=== PATIENT | female | born 1935 | race African-American/Black ===

== ENCOUNTER 2017-04-05 18:09 | Inpatient (IN) ==
[2017-04-05 19:04] LABS: Basophils % 0.8 % (0.0-0.8); Eosinophils # 0.2 10*3/uL (0.0-0.87); Eosinophils % 4.7 % (0.00-10.9); Hematocrit 23.2 VOL% (35.7-47.0); Hemoglobin 7.6 GM/DL (12.0-16.0); Immature Granulocytes % 0.5 %; Immature Granulocytes Absolute 0.02 #; Lymphocytes # 1.4 10*3/uL (1.4-4.0); Lymphocytes % 35.5 % (21.3-54.2); Mean Corpuscular HGB Conc 32.8 GM/DL (32-36); Mean Corpuscular Hemoglobin 29 PG (27-34); Mean Corpuscular Volume 87.5 FL (87-102); Monocytes # 0.5 10*3/uL (0.11-0.8); Monocytes % 12.1 % (1.7-12.7); Neutrophils # 1.8 10*3/uL (1.4-7.4); Neutrophils % 46.4 % (38.7-73.9); Platelet Count 82 T/CUMM (130-400); Red Blood Count 2.65 MC/CUMM (3.8-5.5); White Blood Count 3.8 T/CUMM (4-12)
[2017-04-05 19:29] LABS: Albumin 3.4 G/DL (3.4-5.0); Bilirubin,Total 0.7 MG/DL (0.2-1.0); Calcium 8.8 MG/DL (8.5-10.1); Total Protein 6.7 G/DL (6.4-8.3)
[2017-04-05 19:30] LABS: Osmolality,Calculated 286.4 MOS/KG (273-304); Potassium 4.6 MMOL/L (3.5-5.1)
[2017-04-05 19:59] LABS: Band Neutrophils 4 % (0-10); Eosinophils 4 % (0-10); Lymphocytes 30 % (20-55); Metamyelocytes 1 %; Myelocytes 3 %; Segmented Neutrophils 57 % (50-85); Total Cells Counted 100
[2017-04-05 20:00] LABS: Acanthocytes Moderate; Anisocytosis 1+; Hypochromasia 1+
[2017-04-05 20:02] LABS: Platelet Estimate Decreased; Tear Drop Cells Few
[2017-04-05 20:42] LABS: Apearance,Urine CLEAR (Clear); Bacteria,Urine Occasional /HPF (Few); Bilirubin,Urine Negative (Negative); Blood, Urine Negative (Negative); Glucose,Urine (UA) Negative (Negative); Hyaline Casts,Urine 4 /LPF (0-3); Ketones,Urine Negative (Negative); Mucus,Urine Occasional /LPF (Occasional); Nitrite,Urine Negative (Negative); Protein,Urine Negative; RBC,Urine <1 /HPF (0-4); Squamous Epithelial Cell,Urine Occasional /HPF (0-10); Urine Color Straw (Yellow); Urine Specific Gravity 1.004 (1.001-1.035); Urine Urobilinogen < 2.0 EU/DL (0.2-1.0); WBC,Urine <1 /HPF (0-6)
[2017-04-05] MEDS ORDERED: ONDANSETRON 4 MG/2 ML VIAL IV PRN (21:49)
[2017-04-05] MEDS ORDERED: SODIUM CHLORIDE 0.9% 1,000 ML IV PRN (21:49)
[2017-04-05 22:25] LABS: Basophils % 0.5 % (0.0-0.8); Eosinophils # 0.2 10*3/uL (0.0-0.87); Eosinophils % 5.3 % (0.00-10.9); Hematocrit 22.7 VOL% (35.7-47.0); Hemoglobin 7.5 GM/DL (12.0-16.0); Immature Granulocytes % 0.2 %; Immature Granulocytes Absolute 0.01 #; Lymphocytes # 1.6 10*3/uL (1.4-4.0); Lymphocytes % 35.7 % (21.3-54.2); Mean Corpuscular Hemoglobin 29 PG (27-34); Mean Corpuscular Volume 87.3 FL (87-102); Monocytes # 0.4 10*3/uL (0.11-0.8); Monocytes % 10.1 % (1.7-12.7); Neutrophils # 2.1 10*3/uL (1.4-7.4); Neutrophils % 48.2 % (38.7-73.9); White Blood Count 4.3 T/CUMM (4-12)
[2017-04-05 22:29] LABS: INR 1.1; PT Patient Result 11.7 SECS; Partial Thromboplastin Time 27.7 SECS (0-40)
[2017-04-05 22:38] LABS: Platelet Count 94 T/CUMM (130-400)
[2017-04-05 22:53] LABS: Folate 12.4 NG/ML (5.4-24.0); Vitamin B12 454 PG/ML (211-911)
[2017-04-05 23:41] LABS: Sedimentation Rate-Westergren 38 MM/HR (0-30)
[2017-04-05 23:46] LABS: Anisocytosis 1+; Microcytosis 1+; Platelet Estimate Decreased
[2017-04-05 23:47] LABS: Acanthocytes 1+; Giant Platelets Few; Hypochromasia Slight; Ovalocytes Few; Schistocytes Few
[2017-04-06] MEDS: LISINOPRIL 10 MG TABLET PO SCH ×2 (02:18→08:18)
[2017-04-06] MEDS ORDERED: LEVOTHYROXINE 50 MCG TABLET PO SCH (07:00)
[2017-04-06] MEDS ORDERED: CARVEDILOL 25 MG TABLET PO SCH (08:00)
[2017-04-06] MEDS ORDERED: POLYETHYLENE GLYCOL POWDER 17 GM PACK PO SCH (09:00)
[2017-04-06] MEDS ORDERED: PANTOPRAZOLE 40 MG TABLET PO SCH (09:00)
[2017-04-06] MEDS ORDERED: FUROSEMIDE 40 MG TABLET PO SCH (09:00)
[2017-04-06] MEDS ORDERED: POTASSIUM CHLORIDE 10 MEQ TABLET PO SCH (09:00)
[2017-04-06] MEDS ORDERED: ATORVASTATIN 80 MG TABLET PO SCH (09:00)
[2017-04-06 09:58] LABS: Eosinophils % 4.4 % (0.00-10.9); Immature Granulocytes % 0.2 %; Immature Granulocytes Absolute 0.01 #; Red Cell Distribution Width 15.8 % (9.3-17.3)
[2017-04-06] MEDS ORDERED: FERROUS SULFATE 325 MG TABLET PO SCH (10:00)
[2017-04-06 10:05] LABS: Basophils % 0.6 % (0.0-0.8); Eosinophils # 0.2 10*3/uL (0.0-0.87); Hematocrit 28.6 VOL% (35.7-47.0); Lymphocytes # 1.1 10*3/uL (1.4-4.0); Lymphocytes % 23.5 % (21.3-54.2); Mean Corpuscular HGB Conc 34.3 GM/DL (32-36); Mean Corpuscular Hemoglobin 29 PG (27-34); Mean Corpuscular Volume 85.1 FL (87-102); Monocytes # 0.5 10*3/uL (0.11-0.8); Monocytes % 10.5 % (1.7-12.7); Neutrophils # 2.9 10*3/uL (1.4-7.4); Neutrophils % 60.8 % (38.7-73.9); Platelet Count 84 T/CUMM (130-400); White Blood Count 4.8 T/CUMM (4-12)
[2017-04-06 10:07] LABS: Red Blood Count 3.36 MC/CUMM (3.8-5.5)
[2017-04-06 10:08] LABS: Hemoglobin 9.8 GM/DL (12.0-16.0)
[2017-04-06 10:26] LABS: Bilirubin,Total 1.3 MG/DL (0.2-1.0); Calcium 8.7 MG/DL (8.5-10.1); Magnesium 2.2 MG/DL (1.8-2.4); Osmolality,Calculated 291.1 MOS/KG (273-304); Phosphorous 3.3 MG/DL (2.5-4.9); Potassium 4.1 MMOL/L (3.5-5.1); Total Protein 5.5 G/DL (6.4-8.3)
[2017-04-06 10:33] LABS: Hypochromasia 1+
[2017-04-06 10:34] LABS: Acanthocytes 1+; Microcytosis 1+; Ovalocytes Few
[2017-04-06 10:35] LABS: Platelet Estimate Decreased; Poikilocytosis 1+; Schistocytes Few
[2017-04-06 12:51] VITALS: BP 128/61
[2017-04-06] MEDS: SODIUM CHLORIDE 0.45% 1,000 ML IV SCH ×2 (13:08)
[2017-04-08 09:23] LABS: Hemoglobin A1 (Alkaline) 97.6 % (96.5-98.5); Hemoglobin A2 (Alkaline) 2.4 % (1.5-3.5)
== END 2017-04-06 14:24 | disposition home or self-care (01) | DRG 812 ==
LOC: N.ED 18:09 → N.EDINP 20:45 → N.3E 21:05
PROVIDERS: ADMIT Internal Medicine; ATTEND Internal Medicine

== ENCOUNTER 2017-07-05 10:24 | Inpatient (IN) ==
[2017-07-05] MEDS ORDERED: PANTOPRAZOLE 40 MG VIAL IV STA (10:43)
[2017-07-05] MEDS ORDERED: PANTOPRAZOLE 40 MG VIAL IV ONE (10:54)
[2017-07-05 11:32] LABS: Basophils # 0.1 10*3/uL (0.0-0.2); Basophils % 0.8 % (0.0-0.8); Eosinophils # 0.2 10*3/uL (0.0-0.87); Eosinophils % 3.3 % (0.00-10.9); Hematocrit 31.2 VOL% (35.7-47.0); Hemoglobin 10.3 GM/DL (12.0-16.0); Immature Granulocytes % 0.5 %; Immature Granulocytes Absolute 0.03 #; Lymphocytes # 1.1 10*3/uL (1.4-4.0); Lymphocytes % 18.9 % (21.3-54.2); Mean Corpuscular Hemoglobin 29 PG (27-34); Mean Corpuscular Volume 86.2 FL (87-102); Mean Platelet Volume 15.2 FL (9.6-12.0); Monocytes # 0.6 10*3/uL (0.11-0.8); Neutrophils % 66.5 % (38.7-73.9); Platelet Count 68 T/CUMM (130-400); Red Blood Count 3.62 MC/CUMM (3.8-5.5); Red Cell Distribution Width 13.7 % (9.3-17.3)
[2017-07-05 11:39] LABS: INR 1.1; PT Patient Result 11.6 SECS; Partial Thromboplastin Time 25.7 SECS (0-40)
[2017-07-05 11:49] LABS: Acanthocytes Few; Hypochromasia 1+
[2017-07-05 11:50] LABS: Microcytosis Slight; Ovalocytes Slight; Platelet Estimate Decreased
[2017-07-05 11:51] LABS: Alanine Aminotransferase 11 U/L (13-56); Albumin 3.3 G/DL (3.4-5.0); Alkaline Phosphatase 123 U/L (45-117); Aspartate Amino Transferase 11 U/L (0-37); Blood Urea Nitrogen 41 MG/DL (7-18); Calcium 9.4 MG/DL (8.5-10.1); Glucose 90 MG/DL (74-106); Osmolality,Calculated 290.3 MOS/KG (273-304); Potassium 4.1 MMOL/L (3.5-5.1); Sodium 141 MMOL/L (136-145); Total Protein 7.2 G/DL (6.4-8.3); Troponin I Only < 0.015 NG/ML (0.00-0.045)
[2017-07-05 17:41] LABS: Apearance,Urine CLEAR (Clear); Bilirubin,Urine Negative (Negative); Blood, Urine Negative (Negative); Glucose,Urine (UA) Negative (Negative); Ketones,Urine Negative (Negative); Nitrite,Urine Negative (Negative); Protein,Urine Negative; RBC,Urine <1 /HPF (0-4); Squamous Epithelial Cell,Urine Occasional /HPF (0-10); Urine Color Straw (Yellow); Urine Specific Gravity 1.009 (1.001-1.035); Urine Urobilinogen < 2.0 EU/DL (0.2-1.0); WBC,Urine <1 /HPF (0-6)
[2017-07-05] MEDS: SODIUM CHLORIDE 0.9% 1,000 ML IV SCH (17:57)
[2017-07-06 04:28] LABS: Basophils % 0.4 % (0.0-0.8); Eosinophils # 0.2 10*3/uL (0.0-0.87); Hematocrit 24.9 VOL% (35.7-47.0); Hemoglobin 8.4 GM/DL (12.0-16.0); Immature Granulocytes % 0.4 %; Immature Granulocytes Absolute 0.02 #; Lymphocytes # 1.5 10*3/uL (1.4-4.0); Lymphocytes % 29.5 % (21.3-54.2); Mean Corpuscular HGB Conc 33.7 GM/DL (32-36); Mean Corpuscular Hemoglobin 28 PG (27-34); Mean Corpuscular Volume 84.1 FL (87-102); Mean Platelet Volume 14.5 FL (9.6-12.0); Monocytes # 0.5 10*3/uL (0.11-0.8); Neutrophils # 2.8 10*3/uL (1.4-7.4); Neutrophils % 55.7 % (38.7-73.9); Platelet Count 82 T/CUMM (130-400); Red Blood Count 2.96 MC/CUMM (3.8-5.5); Red Cell Distribution Width 13.7 % (9.3-17.3)
[2017-07-06 04:39] LABS: INR 1.2; PT Patient Result 12.4 SECS
[2017-07-06 04:47] LABS: Calcium 8.5 MG/DL (8.5-10.1); Osmolality,Calculated 295.6 MOS/KG (273-304); Potassium 3.9 MMOL/L (3.5-5.1)
[2017-07-06 05:11] LABS: Eosinophils 3 % (0-10); Lymphocytes 27 % (20-55); Segmented Neutrophils 64 % (50-85); Total Cells Counted 100
[2017-07-06 05:12] LABS: Burr Cells Slight; Giant Platelets Few; Hypochromasia 1+; Microcytosis Slight; Ovalocytes Slight; Platelet Estimate Decreased
[2017-07-06] MEDS: SODIUM CHLORIDE 0.9% 1,000 ML IV SCH ×2 (06:06→16:47)
[2017-07-06] MEDS: PANTOPRAZOLE 40 MG VIAL IV SCH (09:32)
[2017-07-07 06:30] LABS: INR 1.1
[2017-07-07 06:31] LABS: Basophils % 0.6 % (0.0-0.8); Eosinophils # 0.2 10*3/uL (0.0-0.87); Eosinophils % 4.1 % (0.00-10.9); Hematocrit 25.3 VOL% (35.7-47.0); Hemoglobin 8.3 GM/DL (12.0-16.0); Immature Granulocytes % 0.4 %; Immature Granulocytes Absolute 0.02 #; Lymphocytes # 1.3 10*3/uL (1.4-4.0); Lymphocytes % 25.8 % (21.3-54.2); Mean Corpuscular HGB Conc 32.8 GM/DL (32-36); Mean Corpuscular Hemoglobin 28 PG (27-34); Mean Corpuscular Volume 86.1 FL (87-102); Mean Platelet Volume 14.6 FL (9.6-12.0); Monocytes # 0.6 10*3/uL (0.11-0.8); Monocytes % 11.8 % (1.7-12.7); Neutrophils # 2.8 10*3/uL (1.4-7.4); Neutrophils % 57.3 % (38.7-73.9); Platelet Count 86 T/CUMM (130-400); Red Blood Count 2.94 MC/CUMM (3.8-5.5); Red Cell Distribution Width 13.5 % (9.3-17.3); White Blood Count 4.8 T/CUMM (4-12)
[2017-07-07 07:12] LABS: % Iron Saturation 24.5 % (18-50); Ferritin 122.5 ng/ml (8-252)
[2017-07-07 08:02] LABS: Burr Cells Slight; Hypochromasia 1+; Ovalocytes Slight; Platelet Estimate Decreased
[2017-07-07 08:03] LABS: Giant Platelets Few; Microcytosis Slight
[2017-07-07] MEDS: PANTOPRAZOLE 40 MG VIAL IV SCH (09:10)
[2017-07-07 09:35] LABS: Sedimentation Rate-Westergren 45 MM/HR (0-30)
[2017-07-07] MEDS: SODIUM CHLORIDE 0.9% 1,000 ML IV SCH ×2 (10:10→10:11)
[2017-07-07 11:37] LABS: Folate 11.4 NG/ML (5.4-24.0); Vitamin B12 216 PG/ML (211-911)
[2017-07-07] MEDS: CARVEDILOL 25 MG TABLET PO SCH (17:56)
[2017-07-07] MEDS: LISINOPRIL 10 MG TABLET PO SCH (20:50)
[2017-07-07] MEDS: FERROUS SULFATE 325 MG TABLET PO SCH (20:50)
[2017-07-08] MEDS: LEVOTHYROXINE 50 MCG TABLET PO SCH ×2 (06:43→16:27)
[2017-07-08 06:51] LABS: INR 1.1
[2017-07-08 07:15] LABS: Basophils % 0.8 % (0.0-0.8); Eosinophils # 0.2 10*3/uL (0.0-0.87); Eosinophils % 4.3 % (0.00-10.9); Hematocrit 26.6 VOL% (35.7-47.0); Hemoglobin 8.7 GM/DL (12.0-16.0); Immature Granulocytes % 0.4 %; Immature Granulocytes Absolute 0.02 #; Lymphocytes # 1.5 10*3/uL (1.4-4.0); Lymphocytes % 30.8 % (21.3-54.2); Mean Corpuscular HGB Conc 32.7 GM/DL (32-36); Mean Corpuscular Hemoglobin 28 PG (27-34); Mean Corpuscular Volume 85.3 FL (87-102); Mean Platelet Volume 13.9 FL (9.6-12.0); Monocytes # 0.5 10*3/uL (0.11-0.8); Monocytes % 10.6 % (1.7-12.7); Neutrophils # 2.6 10*3/uL (1.4-7.4); Neutrophils % 53.1 % (38.7-73.9); Platelet Count 101 T/CUMM (130-400); Red Blood Count 3.12 MC/CUMM (3.8-5.5); Red Cell Distribution Width 13.4 % (9.3-17.3); White Blood Count 4.9 T/CUMM (4-12)
[2017-07-08 07:23] LABS: Calcium 8.6 MG/DL (8.5-10.1); Osmolality,Calculated 287.7 MOS/KG (273-304); Potassium 3.8 MMOL/L (3.5-5.1)
[2017-07-08] MEDS: PANTOPRAZOLE 40 MG VIAL IV SCH (08:51)
[2017-07-08] MEDS: CARVEDILOL 25 MG TABLET PO SCH ×2 (08:55→16:27)
[2017-07-08] MEDS ORDERED: LIDOCAINE 2% 5 ML VIAL ONE (11:18)
[2017-07-08] MEDS ORDERED: PROPOFOL 200 MG/20 ML VIAL IV ONE (11:18)
[2017-07-08] MEDS ORDERED: BISACODYL 5 MG TABLET PO ONE (12:00)
[2017-07-08] MEDS: FERROUS SULFATE 325 MG TABLET PO SCH ×2 (12:47→20:52)
[2017-07-08] MEDS: LISINOPRIL 10 MG TABLET PO SCH ×2 (12:55→20:52)
[2017-07-08 13:10] LABS: Hemoglobin A1 (Alkaline) 97.7 % (96.5-98.5); Hemoglobin A2 (Alkaline) 2.3 % (1.5-3.5)
[2017-07-08] MEDS ORDERED: POLYETHYLENE GLYCOL POWDER 255 GM BOTTLE PO ONE ×2 (14:00→18:00)
[2017-07-09] MEDS: LISINOPRIL 10 MG TABLET PO SCH ×2 (08:31→20:55)
[2017-07-09] MEDS: LEVOTHYROXINE 50 MCG TABLET PO SCH (08:31)
[2017-07-09] MEDS: FERROUS SULFATE 325 MG TABLET PO SCH ×2 (08:31→20:59)
[2017-07-09] MEDS: CARVEDILOL 25 MG TABLET PO SCH ×3 (08:31→16:57)
[2017-07-09] MEDS: PANTOPRAZOLE 40 MG VIAL IV SCH (08:31)
[2017-07-09] MEDS ORDERED: ONDANSETRON 4 MG/2 ML VIAL ONE (10:23)
[2017-07-09] MEDS ORDERED: PROPOFOL 200 MG/20 ML VIAL IV ONE (10:23)
[2017-07-09] MEDS ORDERED: PHENYLEPHRINE 1 MG/10 ML SYRINGE IV ONE (10:23)
[2017-07-09] MEDS ORDERED: LIDOCAINE 2% 5 ML VIAL ONE (10:23)
[2017-07-09] MEDS ORDERED: ONDANSETRON 4 MG/2 ML VIAL IV PRN (14:51)
[2017-07-09] MEDS ORDERED: ACETAMINOPHEN 325 MG TABLET PO PRN (16:45)
[2017-07-10] MEDS: LEVOTHYROXINE 50 MCG TABLET PO SCH (06:13)
[2017-07-10] MEDS: CARVEDILOL 25 MG TABLET PO SCH (08:38)
[2017-07-10] MEDS: PANTOPRAZOLE 40 MG VIAL IV SCH (08:38)
[2017-07-10] MEDS: FERROUS SULFATE 325 MG TABLET PO SCH (08:38)
[2017-07-10] MEDS: LISINOPRIL 10 MG TABLET PO SCH (08:38)
[2017-07-10 11:22] VITALS: BP 112/56
== END 2017-07-10 13:20 | disposition home or self-care (01) | DRG 378 ==
LOC: N.ED 10:24 → SUATTDRO 11:57 → N.EDINP 11:57 → N.5E 14:42
PROVIDERS: ADMIT Hospitalist; ATTEND Internal Medicine Cardiovascular Disease

== ENCOUNTER 2018-02-03 16:34 | Inpatient (IN) ==
[2018-02-03] MEDS ORDERED: SODIUM CHLORIDE 0.9% 1,000 ML IV STA (17:28)
[2018-02-03] MEDS ORDERED: ONDANSETRON 4 MG/2 ML VIAL IV PRN (18:14)
[2018-02-04 00:05] LABS: Basophils % 0.2 % (0.0-0.8); Eosinophils # 0.1 10*3/uL (0.0-0.87); Eosinophils % 0.6 % (0.00-10.9); Hematocrit 30.1 VOL% (35.7-47.0); Hemoglobin 9.8 GM/DL (12.0-16.0); Immature Granulocytes % 2.2 %; Immature Granulocytes Absolute 0.27 #; Lymphocytes # 1.1 10*3/uL (1.4-4.0); Lymphocytes % 9.2 % (21.3-54.2); Mean Corpuscular HGB Conc 32.6 GM/DL (32-36); Mean Corpuscular Hemoglobin 29 PG (27-34); Mean Corpuscular Volume 88.8 FL (87-102); Mean Platelet Volume 12.3 FL (9.6-12.0); Monocytes # 0.7 10*3/uL (0.11-0.8); Monocytes % 5.7 % (1.7-12.7); Neutrophils # 9.9 10*3/uL (1.4-7.4); Neutrophils % 82.1 % (38.7-73.9); Platelet Count 123 T/CUMM (130-400); Red Blood Count 3.39 MC/CUMM (3.8-5.5); Red Cell Distribution Width 16.7 % (9.3-17.3); White Blood Count 12.1 T/CUMM (4-12)
[2018-02-04 00:30] LABS: Albumin 2.5 G/DL (3.4-5.0); Bilirubin,Total 0.7 MG/DL (0.2-1.0); Calcium 9.5 MG/DL (8.5-10.1); Osmolality,Calculated 302.4 MOS/KG (273-304); Total Protein 6.6 G/DL (6.4-8.3)
[2018-02-04] MEDS: SODIUM CHLORIDE 0.9% 1,000 ML IV SCH ×2 (00:32→13:13)
[2018-02-04] MEDS: FERROUS SULFATE 325 MG TABLET PO SCH ×3 (00:32→20:51)
[2018-02-04] MEDS: LEVOTHYROXINE 50 MCG TABLET PO SCH (05:56)
[2018-02-04 06:13] LABS: Basophils % 0.4 % (0.0-0.8); Eosinophils # 0.1 10*3/uL (0.0-0.87); Eosinophils % 0.7 % (0.00-10.9); Hematocrit 25.2 VOL% (35.7-47.0); Hemoglobin 8.2 GM/DL (12.0-16.0); Immature Granulocytes Absolute 0.17 #; Lymphocytes # 0.9 10*3/uL (1.4-4.0); Lymphocytes % 10.4 % (21.3-54.2); Mean Corpuscular HGB Conc 32.5 GM/DL (32-36); Mean Corpuscular Hemoglobin 28 PG (27-34); Mean Corpuscular Volume 87.2 FL (87-102); Mean Platelet Volume 12.3 FL (9.6-12.0); Monocytes # 0.6 10*3/uL (0.11-0.8); Monocytes % 7.2 % (1.7-12.7); Neutrophils # 6.7 10*3/uL (1.4-7.4); Neutrophils % 79.3 % (38.7-73.9); Platelet Count 99 T/CUMM (130-400); Red Blood Count 2.89 MC/CUMM (3.8-5.5); Red Cell Distribution Width 16.4 % (9.3-17.3); White Blood Count 8.5 T/CUMM (4-12)
[2018-02-04 06:31] LABS: Albumin 2.1 G/DL (3.4-5.0); Bilirubin,Total 0.7 MG/DL (0.2-1.0); Osmolality,Calculated 305.3 MOS/KG (273-304); Potassium 3.9 MMOL/L (3.5-5.1); Total Protein 5.5 G/DL (6.4-8.3)
[2018-02-04 06:35] LABS: Acanthocytes Few
[2018-02-04 06:36] LABS: Elliptocytes Few; Hypochromasia 1+; Microcytosis 1+
[2018-02-04 06:37] LABS: Platelet Estimate Decreased
[2018-02-04] MEDS ORDERED: CARVEDILOL 25 MG TABLET PO SCH (08:00)
[2018-02-04] MEDS: metroNIDAZOLE INJ 500 MG in PREMIX 1 EACH IV SCH ×3 (08:28→20:51)
[2018-02-04] MEDS: PANTOPRAZOLE 40 MG TABLET PO SCH (08:28)
[2018-02-04] MEDS: CIPROFLOXACIN INJ 400 MG in PREMIX 1 EACH IV SCH (16:37)
[2018-02-04] MEDS: ATORVASTATIN 80 MG TABLET PO SCH (20:51)
[2018-02-05] MEDS: SODIUM CHLORIDE 0.9% 1,000 ML IV SCH (02:18)
[2018-02-05] MEDS: metroNIDAZOLE INJ 500 MG in PREMIX 1 EACH IV SCH ×2 (02:20→09:20)
[2018-02-05] MEDS: LEVOTHYROXINE 50 MCG TABLET PO SCH (06:22)
[2018-02-05 06:48] LABS: Basophils % 0.3 % (0.0-0.8); Eosinophils # 0.1 10*3/uL (0.0-0.87); Eosinophils % 0.8 % (0.00-10.9); Hematocrit 24.9 VOL% (35.7-47.0); Hemoglobin 8.3 GM/DL (12.0-16.0); Immature Granulocytes % 2.3 %; Immature Granulocytes Absolute 0.21 #; Lymphocytes % 11.1 % (21.3-54.2); Mean Corpuscular HGB Conc 33.3 GM/DL (32-36); Mean Corpuscular Hemoglobin 29 PG (27-34); Mean Corpuscular Volume 86.2 FL (87-102); Mean Platelet Volume 12.3 FL (9.6-12.0); Monocytes # 0.9 10*3/uL (0.11-0.8); Monocytes % 9.8 % (1.7-12.7); Neutrophils # 6.8 10*3/uL (1.4-7.4); Neutrophils % 75.7 % (38.7-73.9); Platelet Count 111 T/CUMM (130-400); Red Blood Count 2.89 MC/CUMM (3.8-5.5); Red Cell Distribution Width 16.6 % (9.3-17.3)
[2018-02-05 07:25] LABS: Albumin 1.9 G/DL (3.4-5.0); Bilirubin,Total 0.7 MG/DL (0.2-1.0); Calcium 8.7 MG/DL (8.5-10.1); Osmolality,Calculated 300.8 MOS/KG (273-304); Potassium 3.6 MMOL/L (3.5-5.1); Total Protein 5.1 G/DL (6.4-8.3)
[2018-02-05 07:29] LABS: % Iron Saturation 18.3 % (18-50)
[2018-02-05] MEDS ORDERED: POLYETHYLENE GLYCOL POWDER 17 GM PACK PO PRN (08:43)
[2018-02-05] MEDS: FERROUS SULFATE 325 MG TABLET PO SCH ×2 (09:20→20:49)
[2018-02-05] MEDS: PANTOPRAZOLE 40 MG TABLET PO SCH (09:20)
[2018-02-05] MEDS ORDERED: IRON SUCROSE 200 MG in SODIUM CHLORIDE 0.9% 100 ML IV ONE (09:59)
[2018-02-05] MEDS ORDERED: MAGNESIUM SULF RIDER 2 GM in PREMIX 1 EACH IV PRN (10:34)
[2018-02-05] MEDS ORDERED: MAGNESIUM SULF RIDER 4 GM in PREMIX 1 EACH IV PRN (10:34)
[2018-02-05] MEDS: CIPROFLOXACIN INJ 400 MG in PREMIX 1 EACH IV SCH (10:37)
[2018-02-05] MEDS ORDERED: POTASSIUM PHOSPHATE 30 MMOL in SODIUM CHLORIDE 0.9% 250 ML IV ONE (10:44)
[2018-02-05] MEDS: DICLOFENAC 1% GEL 100 GM TUBE TOP SCH ×2 (16:47→20:49)
[2018-02-05] MEDS: ATORVASTATIN 80 MG TABLET PO SCH (20:49)
[2018-02-06] MEDS: SODIUM CHLORIDE 0.9% 1,000 ML IV SCH ×3 (02:21→17:58)
[2018-02-06 05:40] LABS: Basophils % 0.2 % (0.0-0.8); Eosinophils # 0.1 10*3/uL (0.0-0.87); Eosinophils % 0.7 % (0.00-10.9); Hematocrit 24.8 VOL% (35.7-47.0); Immature Granulocytes % 2.9 %; Immature Granulocytes Absolute 0.26 #; Lymphocytes # 0.8 10*3/uL (1.4-4.0); Lymphocytes % 8.6 % (21.3-54.2); Mean Corpuscular HGB Conc 32.3 GM/DL (32-36); Mean Corpuscular Hemoglobin 29 PG (27-34); Mean Corpuscular Volume 88.3 FL (87-102); Mean Platelet Volume 10.6 FL (9.6-12.0); Monocytes # 0.9 10*3/uL (0.11-0.8); Monocytes % 9.3 % (1.7-12.7); Neutrophils # 7.1 10*3/uL (1.4-7.4); Neutrophils % 78.3 % (38.7-73.9); Platelet Count 106 T/CUMM (130-400); Red Blood Count 2.81 MC/CUMM (3.8-5.5); Red Cell Distribution Width 16.8 % (9.3-17.3); White Blood Count 9.1 T/CUMM (4-12)
[2018-02-06 06:09] LABS: Albumin 1.9 G/DL (3.4-5.0); Bilirubin,Total 1.2 MG/DL (0.2-1.0); Calcium 8.4 MG/DL (8.5-10.1); Osmolality,Calculated 296.6 MOS/KG (273-304); Potassium 4.1 MMOL/L (3.5-5.1); Total Protein 5.3 G/DL (6.4-8.3)
[2018-02-06] MEDS: LEVOTHYROXINE 50 MCG TABLET PO SCH (06:33)
[2018-02-06] MEDS ORDERED: CEFUROXIME 500 MG TABLET PO SCH (09:00)
[2018-02-06] MEDS: DICLOFENAC 1% GEL 100 GM TUBE TOP SCH ×4 (09:08→22:02)
[2018-02-06] MEDS: FERROUS SULFATE 325 MG TABLET PO SCH ×2 (09:08→22:02)
[2018-02-06] MEDS: PANTOPRAZOLE 40 MG TABLET PO SCH (09:08)
[2018-02-06] MEDS ORDERED: CIPROFLOXACIN INJ 400 MG in PREMIX 1 EACH IV SCH (10:00)
[2018-02-06] MEDS: AMPICILLIN/SULBACTAM 3,000 MG in SODIUM CHLORIDE 0.9% 100 ML IV SCH ×2 (14:24→21:58)
[2018-02-06] MEDS ORDERED: MECLIZINE 25 MG TABLET PO PRN (15:39)
[2018-02-06] MEDS: FLUTICASONE 50 MCG NASAL SPRAY 16 GM BOTTLE BOTH NARES SCH (22:02)
[2018-02-06] MEDS: ATORVASTATIN 80 MG TABLET PO SCH (22:02)
[2018-02-07] MEDS: AMPICILLIN/SULBACTAM 3,000 MG in SODIUM CHLORIDE 0.9% 100 ML IV SCH ×4 (03:04→20:58)
[2018-02-07 06:23] LABS: Basophils % 0.2 % (0.0-0.8); Eosinophils # 0.1 10*3/uL (0.0-0.87); Eosinophils % 0.8 % (0.00-10.9); Hematocrit 22.8 VOL% (35.7-47.0); Hemoglobin 7.5 GM/DL (12.0-16.0); Immature Granulocytes Absolute 0.17 #; Lymphocytes # 0.8 10*3/uL (1.4-4.0); Lymphocytes % 9.3 % (21.3-54.2); Mean Corpuscular HGB Conc 32.9 GM/DL (32-36); Mean Corpuscular Hemoglobin 29 PG (27-34); Mean Corpuscular Volume 86.7 FL (87-102); Mean Platelet Volume 12.6 FL (9.6-12.0); Monocytes # 0.7 10*3/uL (0.11-0.8); Monocytes % 8.3 % (1.7-12.7); NRBC # 0.02 10*3/uL; Neutrophils # 6.9 10*3/uL (1.4-7.4); Neutrophils % 79.4 % (38.7-73.9); Platelet Count 123 T/CUMM (130-400); Red Blood Count 2.63 MC/CUMM (3.8-5.5); Red Cell Distribution Width 16.9 % (9.3-17.3); White Blood Count 8.7 T/CUMM (4-12)
[2018-02-07] MEDS: LEVOTHYROXINE 50 MCG TABLET PO SCH (06:35)
[2018-02-07 07:07] LABS: Alanine Aminotransferase < 9 U/L (13-56); Albumin 1.7 G/DL (3.4-5.0); Alkaline Phosphatase 57 U/L (45-117); Aspartate Amino Transferase 13 U/L (0-37); Blood Urea Nitrogen 20 MG/DL (7-18); Calcium 8.1 MG/DL (8.5-10.1); Glucose 89 MG/DL (74-106); Osmolality,Calculated 291.6 MOS/KG (273-304); Potassium 3.9 MMOL/L (3.5-5.1); Sodium 146 MMOL/L (136-145); Total Protein 4.8 G/DL (6.4-8.3)
[2018-02-07] MEDS: SODIUM CHLORIDE 0.9% 1,000 ML IV SCH (10:24)
[2018-02-07] MEDS: FERROUS SULFATE 325 MG TABLET PO SCH ×2 (10:25→20:57)
[2018-02-07] MEDS: PANTOPRAZOLE 40 MG TABLET PO SCH (10:25)
[2018-02-07] MEDS: DICLOFENAC 1% GEL 100 GM TUBE TOP SCH ×4 (10:26→20:58)
[2018-02-07] MEDS: FLUTICASONE 50 MCG NASAL SPRAY 16 GM BOTTLE BOTH NARES SCH ×2 (10:26→20:57)
[2018-02-07] MEDS ORDERED: MAGNESIUM SULF RIDER 4 GM in PREMIX 1 EACH IV PRN (10:58)
[2018-02-07] MEDS ORDERED: MAGNESIUM SULF RIDER 2 GM in PREMIX 1 EACH IV PRN (10:58)
[2018-02-07] MEDS ORDERED: SODIUM CHLORIDE 0.9% 1,000 ML IV PRN (10:59)
[2018-02-07] MEDS: ALLOPURINOL 100 MG TABLET PO SCH (11:49)
[2018-02-07] MEDS ORDERED: LACTULOSE 20 GM/30 ML UDCUP PO ONE (12:26)
[2018-02-07] MEDS ORDERED: FUROSEMIDE 20 MG/2 ML VIAL IV ONE (14:00)
[2018-02-07] MEDS: ATORVASTATIN 80 MG TABLET PO SCH (20:57)
[2018-02-08 04:18] LABS: Hematocrit 32.4 VOL% (35.7-47.0); Hemoglobin 10.8 GM/DL (12.0-16.0)
[2018-02-08] MEDS: AMPICILLIN/SULBACTAM 3,000 MG in SODIUM CHLORIDE 0.9% 100 ML IV SCH ×4 (05:20→23:27)
[2018-02-08] MEDS: LEVOTHYROXINE 50 MCG TABLET PO SCH (06:31)
[2018-02-08] MEDS: PANTOPRAZOLE 40 MG TABLET PO SCH (08:11)
[2018-02-08] MEDS: FLUTICASONE 50 MCG NASAL SPRAY 16 GM BOTTLE BOTH NARES SCH ×2 (08:11→21:29)
[2018-02-08] MEDS: FERROUS SULFATE 325 MG TABLET PO SCH ×2 (08:11→21:28)
[2018-02-08] MEDS: ALLOPURINOL 100 MG TABLET PO SCH (08:11)
[2018-02-08] MEDS ORDERED: ACETAMINOPHEN 325 MG TABLET PO PRN (09:50)
[2018-02-08] MEDS: methylPREDNISolone SOD SUC 40 MG/1 ML VIAL IV SCH ×2 (10:45→23:27)
[2018-02-08] MEDS: DICLOFENAC 1% GEL 100 GM TUBE TOP SCH (14:39)
[2018-02-08] MEDS: ATORVASTATIN 80 MG TABLET PO SCH (21:28)
[2018-02-09] MEDS: AMPICILLIN/SULBACTAM 3,000 MG in SODIUM CHLORIDE 0.9% 100 ML IV SCH (05:06)
[2018-02-09] MEDS: LEVOTHYROXINE 50 MCG TABLET PO SCH (05:06)
[2018-02-09] MEDS: FLUTICASONE 50 MCG NASAL SPRAY 16 GM BOTTLE BOTH NARES SCH (08:45)
[2018-02-09] MEDS: FERROUS SULFATE 325 MG TABLET PO SCH (08:45)
[2018-02-09] MEDS: ALLOPURINOL 100 MG TABLET PO SCH (08:45)
[2018-02-09] MEDS: PANTOPRAZOLE 40 MG TABLET PO SCH (08:45)
[2018-02-09 14:17] VITALS: BP 129/65
== END 2018-02-09 13:16 | disposition home or self-care (01) | DRG 683 ==
LOC: N.ED 16:34 → SUATTDRO 22:00 → N.EDINP 22:00 → N.5E 23:09
PROVIDERS: ADMIT Internal Medicine; ATTEND Internal Medicine

== ENCOUNTER 2018-04-19 12:11 | Observation (INO) ==
[2018-04-19 13:31] LABS: Basophils # 0.1 10*3/uL (0.0-0.2); Basophils % 0.6 % (0.0-0.8); Eosinophils # 0.3 10*3/uL (0.0-0.87); Eosinophils % 3.4 % (0.00-10.9); Hematocrit 27.9 VOL% (35.7-47.0); Hemoglobin 8.9 GM/DL (12.0-16.0); Immature Granulocytes % 1.1 %; Immature Granulocytes Absolute 0.09 #; Lymphocytes # 1.4 10*3/uL (1.4-4.0); Lymphocytes % 17.8 % (21.3-54.2); Mean Corpuscular HGB Conc 31.9 GM/DL (32-36); Mean Corpuscular Hemoglobin 29 PG (27-34); Mean Platelet Volume 11.3 FL (9.6-12.0); Monocytes # 0.6 10*3/uL (0.11-0.8); Monocytes % 7.9 % (1.7-12.7); Neutrophils # 5.5 10*3/uL (1.4-7.4); Neutrophils % 69.2 % (38.7-73.9); Platelet Count 184 T/CUMM (130-400); Red Cell Distribution Width 16.2 % (9.3-17.3); White Blood Count 7.9 T/CUMM (4-12)
[2018-04-19 13:55] LABS: INR 1.1; PT Patient Result 11.7 SECS; Partial Thromboplastin Time 25.9 SECS (0-40)
[2018-04-19 13:56] LABS: Alanine Aminotransferase 14 U/L (13-56); Albumin 2.3 G/DL (3.4-5.0); Alkaline Phosphatase 112 U/L (45-117); Aspartate Amino Transferase 17 U/L (0-37); Blood Urea Nitrogen 20 MG/DL (7-18); Calcium 9.5 MG/DL (8.5-10.1); Glucose 86 MG/DL (74-106); Osmolality,Calculated 287.8 MOS/KG (273-304); Potassium 3.5 MMOL/L (3.5-5.1); Sodium 144 MMOL/L (136-145); Total Protein 6.4 G/DL (6.4-8.3)
[2018-04-19 14:04] LABS: Troponin I 0.069 NG/ML (0.00-0.045)
[2018-04-19] MEDS ORDERED: ONDANSETRON 4 MG/2 ML VIAL IV PRN (14:35)
[2018-04-19] MEDS ORDERED: ACETAMINOPHEN 325 MG TABLET PO PRN (14:35)
[2018-04-19] MEDS ORDERED: HYDROmorphone 2 MG/1 ML VIAL IV PRN (14:35)
[2018-04-19] MEDS ORDERED: FUROSEMIDE 40 MG TABLET PO SCH (16:00)
[2018-04-19] MEDS ORDERED: SODIUM CHLORIDE 0.9% 1,000 ML IV SCH (18:30)
[2018-04-19] MEDS: IRON (CARBONYL) 45 MG TABLET PO SCH ×2 (18:44→21:16)
[2018-04-19] MEDS: CARVEDILOL 25 MG TABLET PO SCH (21:16)
[2018-04-20 04:27] LABS: Basophils # 0.1 10*3/uL (0.0-0.2); Basophils % 0.7 % (0.0-0.8); Eosinophils # 0.3 10*3/uL (0.0-0.87); Hematocrit 25.3 VOL% (35.7-47.0); Hemoglobin 8.1 GM/DL (12.0-16.0); Immature Granulocytes % 1.3 %; Lymphocytes # 1.8 10*3/uL (1.4-4.0); Lymphocytes % 23.2 % (21.3-54.2); Mean Corpuscular Hemoglobin 29 PG (27-34); Mean Corpuscular Volume 91.3 FL (87-102); Mean Platelet Volume 11.6 FL (9.6-12.0); Monocytes # 0.7 10*3/uL (0.11-0.8); Monocytes % 8.6 % (1.7-12.7); Neutrophils # 4.7 10*3/uL (1.4-7.4); Neutrophils % 62.2 % (38.7-73.9); Platelet Count 174 T/CUMM (130-400); Red Blood Count 2.77 MC/CUMM (3.8-5.5); Red Cell Distribution Width 16.1 % (9.3-17.3); White Blood Count 7.6 T/CUMM (4-12)
[2018-04-20 04:58] LABS: Bilirubin,Total 0.6 MG/DL (0.2-1.0); Calcium 8.6 MG/DL (8.5-10.1); Osmolality,Calculated 293.6 MOS/KG (273-304); Potassium 3.2 MMOL/L (3.5-5.1); Total Protein 5.8 G/DL (6.4-8.3)
[2018-04-20 05:20] LABS: Troponin I 0.061 NG/ML (0.00-0.045)
[2018-04-20] MEDS ORDERED: LEVOTHYROXINE 50 MCG TABLET PO SCH (06:30)
[2018-04-20] MEDS ORDERED: PANTOPRAZOLE 40 MG TABLET PO SCH (09:00)
[2018-04-20] MEDS ORDERED: CLOPIDOGREL 75 MG TABLET PO SCH (09:00)
[2018-04-20] MEDS ORDERED: ATORVASTATIN 80 MG TABLET PO SCH (09:00)
[2018-04-20] MEDS ORDERED: ASPIRIN EC 81 MG TABLET PO SCH (09:00)
[2018-04-20] MEDS: CARVEDILOL 25 MG TABLET PO SCH (09:01)
[2018-04-20] MEDS: IRON (CARBONYL) 45 MG TABLET PO SCH (09:01)
[2018-04-20] MEDS: POTASSIUM CHLORIDE 20 MEQ TABLET PO PRN ×2 (09:56→12:16)
[2018-04-20 12:38] VITALS: BP 146/64
== END 2018-04-20 13:48 | disposition home or self-care (01) ==
LOC: EDUNIT# → N.ED 12:11 → INTOOBSV 14:34 → N.EDINP 14:34 → N.TELEN 16:11
PROVIDERS: ADMIT Internal Medicine Cardiovascular Disease; ATTEND Internal Medicine Cardiovascular Disease

== ENCOUNTER 2018-05-15 00:51 | Inpatient (IN) ==
[2018-05-15] MEDS ORDERED: SODIUM CHLORIDE 0.9% 500 ML IV STA (01:04)
[2018-05-15 01:35] LABS: Basophils # 0.1 10*3/uL (0.0-0.2); Basophils % 0.7 % (0.0-0.8); Eosinophils # 0.2 10*3/uL (0.0-0.87); Hematocrit 26.7 VOL% (35.7-47.0); Hemoglobin 8.6 GM/DL (12.0-16.0); Immature Granulocytes % 0.4 %; Immature Granulocytes Absolute 0.03 #; Lymphocytes # 1.3 10*3/uL (1.4-4.0); Lymphocytes % 19.4 % (21.3-54.2); Mean Corpuscular HGB Conc 32.2 GM/DL (32-36); Mean Corpuscular Hemoglobin 29 PG (27-34); Mean Corpuscular Volume 90.5 FL (87-102); Mean Platelet Volume 13.1 FL (9.6-12.0); Monocytes # 0.5 10*3/uL (0.11-0.8); Monocytes % 7.8 % (1.7-12.7); Neutrophils # 4.7 10*3/uL (1.4-7.4); Neutrophils % 68.7 % (38.7-73.9); Platelet Count 132 T/CUMM (130-400); Red Blood Count 2.95 MC/CUMM (3.8-5.5); Red Cell Distribution Width 16.1 % (9.3-17.3); White Blood Count 6.9 T/CUMM (4-12)
[2018-05-15 01:46] LABS: INR 1.1; PT Patient Result 11.7 SECS; Partial Thromboplastin Time 25.3 SECS (0-40)
[2018-05-15 01:59] LABS: Albumin 2.6 G/DL (3.4-5.0); Bilirubin,Total 0.6 MG/DL (0.2-1.0); Calcium 9.2 MG/DL (8.5-10.1); Potassium 3.3 MMOL/L (3.5-5.1); Total Protein 7.1 G/DL (6.4-8.3)
[2018-05-15] MEDS ORDERED: ONDANSETRON 4 MG/2 ML VIAL IV PRN (02:10)
[2018-05-15] MEDS ORDERED: ACETAMINOPHEN 325 MG TABLET PO PRN (02:10)
[2018-05-15] MEDS: SODIUM CHLORIDE 0.9% 1,000 ML IV SCH ×3 (04:40→17:45)
[2018-05-15 05:00] LABS: Basophils % 0.5 % (0.0-0.8); Eosinophils # 0.2 10*3/uL (0.0-0.87); Eosinophils % 2.7 % (0.00-10.9); Hematocrit 23.3 VOL% (35.7-47.0); Hemoglobin 7.4 GM/DL (12.0-16.0); Immature Granulocytes % 0.8 %; Immature Granulocytes Absolute 0.05 #; Lymphocytes # 1.2 10*3/uL (1.4-4.0); Lymphocytes % 18.7 % (21.3-54.2); Mean Corpuscular HGB Conc 31.8 GM/DL (32-36); Mean Corpuscular Hemoglobin 29 PG (27-34); Mean Corpuscular Volume 90.7 FL (87-102); Mean Platelet Volume 13.2 FL (9.6-12.0); Monocytes # 0.6 10*3/uL (0.11-0.8); Monocytes % 8.9 % (1.7-12.7); Neutrophils # 4.3 10*3/uL (1.4-7.4); Neutrophils % 68.4 % (38.7-73.9); Platelet Count 111 T/CUMM (130-400); Red Blood Count 2.57 MC/CUMM (3.8-5.5); Red Cell Distribution Width 15.8 % (9.3-17.3); White Blood Count 6.2 T/CUMM (4-12)
[2018-05-15] MEDS ORDERED: SODIUM CHLORIDE 0.9% 1,000 ML IV PRN (06:22)
[2018-05-15] MEDS ORDERED: PANTOPRAZOLE 40 MG TABLET PO SCH (09:00)
[2018-05-15] MEDS: POTASSIUM CHLORIDE RIDER 10 MEQ in PREMIX 1 EACH IV PRN ×4 (10:16→21:45)
[2018-05-15] MEDS ORDERED: NITROGLYCERIN SL 0.4 MG TABLET SL PRN (12:23)
[2018-05-15 13:50] LABS: Hematocrit 30.1 VOL% (35.7-47.0)
[2018-05-15 13:54] LABS: Hemoglobin 9.9 GM/DL (12.0-16.0)
[2018-05-15] MEDS: FUROSEMIDE 20 MG TABLET PO SCH (15:43)
[2018-05-15 16:49] LABS: Hemoglobin 10.2 GM/DL (12.0-16.0)
[2018-05-15] MEDS: PANTOPRAZOLE 40 MG TABLET PO SCH (21:42)
[2018-05-15] MEDS: LOSARTAN 25 MG TABLET PO SCH (21:42)
[2018-05-15] MEDS: CARVEDILOL 25 MG TABLET PO SCH (21:42)
[2018-05-15 22:12] LABS: Hemoglobin 9.6 GM/DL (12.0-16.0)
[2018-05-16] MEDS: SODIUM CHLORIDE 0.9% 1,000 ML IV SCH ×3 (02:30→17:28)
[2018-05-16 05:29] LABS: Calcium 8.2 MG/DL (8.5-10.1); Osmolality,Calculated 292.4 MOS/KG (273-304); Potassium 3.4 MMOL/L (3.5-5.1)
[2018-05-16 05:38] LABS: Basophils % 0.5 % (0.0-0.8); Eosinophils # 0.3 10*3/uL (0.0-0.87); Eosinophils % 3.2 % (0.00-10.9); Hematocrit 28.6 VOL% (35.7-47.0); Hemoglobin 9.5 GM/DL (12.0-16.0); Immature Granulocytes % 0.5 %; Immature Granulocytes Absolute 0.04 #; Lymphocytes # 1.7 10*3/uL (1.4-4.0); Lymphocytes % 21.5 % (21.3-54.2); Mean Corpuscular HGB Conc 33.2 GM/DL (32-36); Mean Corpuscular Hemoglobin 30 PG (27-34); Mean Corpuscular Volume 89.1 FL (87-102); Mean Platelet Volume 12.5 FL (9.6-12.0); Monocytes # 0.6 10*3/uL (0.11-0.8); Monocytes % 7.6 % (1.7-12.7); Neutrophils # 5.2 10*3/uL (1.4-7.4); Neutrophils % 66.7 % (38.7-73.9); Red Blood Count 3.21 MC/CUMM (3.8-5.5); Red Cell Distribution Width 15.2 % (9.3-17.3); White Blood Count 7.9 T/CUMM (4-12)
[2018-05-16 05:48] LABS: Platelet Count 86 T/CUMM (130-400)
[2018-05-16] MEDS ORDERED: POTASSIUM CHLORIDE 20 MEQ/15 ML UDCUP PO ONE (08:15)
[2018-05-16] MEDS: FERROUS SULFATE 325 MG TABLET PO SCH ×2 (08:57→21:09)
[2018-05-16] MEDS: ATORVASTATIN 80 MG TABLET PO SCH (08:57)
[2018-05-16] MEDS: LEVOTHYROXINE 50 MCG TABLET PO SCH (08:57)
[2018-05-16] MEDS: CARVEDILOL 25 MG TABLET PO SCH ×2 (08:57→21:09)
[2018-05-16] MEDS: FUROSEMIDE 20 MG TABLET PO SCH ×2 (08:57→17:12)
[2018-05-16] MEDS: LOSARTAN 25 MG TABLET PO SCH ×2 (08:57→21:09)
[2018-05-16] MEDS: ALLOPURINOL 100 MG TABLET PO SCH (08:58)
[2018-05-16] MEDS: PANTOPRAZOLE 40 MG TABLET PO SCH ×2 (08:58→21:09)
[2018-05-16] MEDS ORDERED: PHENYLEPHRINE 1 MG/10 ML SYRINGE IV ONE (09:00)
[2018-05-16] MEDS ORDERED: ONDANSETRON 4 MG/2 ML VIAL ONE (09:00)
[2018-05-16] MEDS ORDERED: ETOMIDATE 20 MG/10 ML VIAL IV ONE (09:00)
[2018-05-16] MEDS ORDERED: PROPOFOL 200 MG/20 ML VIAL IV ONE (09:00)
[2018-05-16] MEDS ORDERED: LIDOCAINE 1% 5 ML VIAL ONE (09:00)
[2018-05-16] MEDS ORDERED: GLYCOPYRROLATE 0.4 MG/2 ML VIAL ONE (09:00)
[2018-05-16] MEDS: TIMOLOL 0.5% OPH SOLN 5 ML BOTTLE BOTH EYES SCH (10:10)
[2018-05-16 15:22] LABS: Basophils % 0.5 % (0.0-0.8); Eosinophils # 0.3 10*3/uL (0.0-0.87); Eosinophils % 3.4 % (0.00-10.9); Hematocrit 24.5 VOL% (35.7-47.0); Hemoglobin 7.8 GM/DL (12.0-16.0); Immature Granulocytes % 0.5 %; Immature Granulocytes Absolute 0.04 #; Lymphocytes # 1.2 10*3/uL (1.4-4.0); Lymphocytes % 15.2 % (21.3-54.2); Mean Corpuscular HGB Conc 31.8 GM/DL (32-36); Mean Corpuscular Hemoglobin 29 PG (27-34); Mean Corpuscular Volume 91.4 FL (87-102); Mean Platelet Volume 11.2 FL (9.6-12.0); Monocytes # 0.6 10*3/uL (0.11-0.8); Monocytes % 8.2 % (1.7-12.7); Neutrophils # 5.5 10*3/uL (1.4-7.4); Neutrophils % 72.2 % (38.7-73.9); Platelet Count 69 T/CUMM (130-400); Red Blood Count 2.68 MC/CUMM (3.8-5.5); Red Cell Distribution Width 15.6 % (9.3-17.3); White Blood Count 7.6 T/CUMM (4-12)
[2018-05-16 16:01] LABS: Anisocytosis 1+; Platelet Estimate Decreased; Poikilocytosis 2+
[2018-05-16 21:44] LABS: Hematocrit 25.2 VOL% (35.7-47.0); Hemoglobin 8.2 GM/DL (12.0-16.0)
[2018-05-17 03:07] LABS: Basophils % 0.2 % (0.0-0.8); Eosinophils # 0.2 10*3/uL (0.0-0.87); Eosinophils % 1.4 % (0.00-10.9); Hematocrit 27.2 VOL% (35.7-47.0); Immature Granulocytes % 0.7 %; Immature Granulocytes Absolute 0.09 #; Lymphocytes # 1.4 10*3/uL (1.4-4.0); Lymphocytes % 10.6 % (21.3-54.2); Mean Corpuscular HGB Conc 33.1 GM/DL (32-36); Mean Corpuscular Hemoglobin 29 PG (27-34); Mean Corpuscular Volume 88.3 FL (87-102); Mean Platelet Volume 11.7 FL (9.6-12.0); Monocytes # 0.9 10*3/uL (0.11-0.8); Monocytes % 6.7 % (1.7-12.7); Neutrophils # 10.7 10*3/uL (1.4-7.4); Neutrophils % 80.4 % (38.7-73.9); Red Blood Count 3.08 MC/CUMM (3.8-5.5); Red Cell Distribution Width 15.3 % (9.3-17.3); White Blood Count 13.3 T/CUMM (4-12)
[2018-05-17 03:11] LABS: Platelet Count 69 T/CUMM (130-400)
[2018-05-17 03:21] LABS: Potassium 3.4 MMOL/L (3.5-5.1)
[2018-05-17] MEDS: SODIUM CHLORIDE 0.9% 1,000 ML IV SCH (04:08)
[2018-05-17] MEDS ORDERED: MAGNESIUM SULF RIDER 2 GM in PREMIX 1 EACH IV PRN (05:17)
[2018-05-17] MEDS ORDERED: MAGNESIUM SULF RIDER 4 GM in PREMIX 1 EACH IV PRN (05:17)
[2018-05-17] MEDS: POTASSIUM CHLORIDE 20 MEQ/15 ML UDCUP PO PRN ×3 (05:37→10:20)
[2018-05-17] MEDS: LEVOTHYROXINE 50 MCG TABLET PO SCH (06:27)
[2018-05-17] MEDS: LOSARTAN 25 MG TABLET PO SCH ×2 (10:20→21:25)
[2018-05-17] MEDS: ALLOPURINOL 100 MG TABLET PO SCH (10:20)
[2018-05-17] MEDS: ATORVASTATIN 80 MG TABLET PO SCH (10:20)
[2018-05-17] MEDS: TIMOLOL 0.5% OPH SOLN 5 ML BOTTLE BOTH EYES SCH (10:21)
[2018-05-17] MEDS: FUROSEMIDE 20 MG TABLET PO SCH ×2 (10:21→15:16)
[2018-05-17] MEDS: CARVEDILOL 25 MG TABLET PO SCH ×2 (10:21→21:25)
[2018-05-17] MEDS: PANTOPRAZOLE 40 MG TABLET PO SCH ×2 (10:21→21:25)
[2018-05-17] MEDS: FERROUS SULFATE 325 MG TABLET PO SCH ×2 (10:21→21:25)
[2018-05-17] MEDS: POTASSIUM CHLORIDE RIDER 10 MEQ in PREMIX 1 EACH IV SCH ×2 (10:28→11:41)
[2018-05-17] MEDS: MAGNESIUM SULF INJ 2 GM, POTASSIUM CHLORIDE INJ 20 MEQ in SODIUM CHLORIDE 0.9% 1,000 ML IV SCH ×2 (10:28→19:06)
[2018-05-17 15:17] LABS: Apearance,Urine CLEAR (Clear); Bacteria,Urine Occasional /HPF (Few); Bilirubin,Urine Negative (Negative); Blood, Urine Negative (Negative); Glucose,Urine (UA) Negative (Negative); Ketones,Urine Negative (Negative); Mucus,Urine Occasional /LPF (Occasional); Nitrite,Urine Negative (Negative); Protein,Urine Negative; RBC,Urine <1 /HPF (0-4); Squamous Epithelial Cell,Urine Occasional /HPF (0-10); Urine Color Straw (Yellow); Urine Specific Gravity 1.005 (1.001-1.035); Urine Urobilinogen < 2.0 EU/DL (0.2-1.0); WBC,Urine <1 /HPF (0-6)
[2018-05-18] MEDS: MAGNESIUM SULF INJ 2 GM, POTASSIUM CHLORIDE INJ 20 MEQ in SODIUM CHLORIDE 0.9% 1,000 ML IV SCH ×2 (02:53→09:42)
[2018-05-18 03:06] LABS: Basophils % 0.4 % (0.0-0.8); Eosinophils # 0.2 10*3/uL (0.0-0.87); Eosinophils % 2.3 % (0.00-10.9); Hematocrit 28.6 VOL% (35.7-47.0); Hemoglobin 9.3 GM/DL (12.0-16.0); Immature Granulocytes % 0.7 %; Immature Granulocytes Absolute 0.07 #; Lymphocytes # 1.4 10*3/uL (1.4-4.0); Lymphocytes % 13.8 % (21.3-54.2); Mean Corpuscular HGB Conc 32.5 GM/DL (32-36); Mean Corpuscular Hemoglobin 29 PG (27-34); Mean Corpuscular Volume 88.8 FL (87-102); Mean Platelet Volume 11.9 FL (9.6-12.0); Monocytes # 0.7 10*3/uL (0.11-0.8); Monocytes % 6.4 % (1.7-12.7); Neutrophils # 7.8 10*3/uL (1.4-7.4); Neutrophils % 76.4 % (38.7-73.9); Platelet Count 106 T/CUMM (130-400); Red Blood Count 3.22 MC/CUMM (3.8-5.5); Red Cell Distribution Width 15.9 % (9.3-17.3); White Blood Count 10.3 T/CUMM (4-12)
[2018-05-18 06:19] LABS: Calcium 8.1 MG/DL (8.5-10.1)
[2018-05-18 06:20] LABS: Albumin 1.8 G/DL (3.4-5.0); Bilirubin,Total 1.4 MG/DL (0.2-1.0); Total Protein 4.8 G/DL (6.4-8.3)
[2018-05-18 06:21] LABS: Osmolality,Calculated 287.8 MOS/KG (273-304); Potassium 4.7 MMOL/L (3.5-5.1); Thyroid Stimulating Hormone 7.92 uIU/ml (0.358-3.74)
[2018-05-18] MEDS: LEVOTHYROXINE 50 MCG TABLET PO SCH (06:36)
[2018-05-18] MEDS: PANTOPRAZOLE 40 MG TABLET PO SCH ×2 (08:25→21:15)
[2018-05-18] MEDS: FUROSEMIDE 20 MG TABLET PO SCH ×2 (08:25→17:36)
[2018-05-18] MEDS: ALLOPURINOL 100 MG TABLET PO SCH (08:25)
[2018-05-18] MEDS: TIMOLOL 0.5% OPH SOLN 5 ML BOTTLE BOTH EYES SCH (08:26)
[2018-05-18] MEDS: FERROUS SULFATE 325 MG TABLET PO SCH ×2 (08:26→21:15)
[2018-05-18] MEDS: LOSARTAN 25 MG TABLET PO SCH ×2 (08:26→21:15)
[2018-05-18] MEDS: ATORVASTATIN 80 MG TABLET PO SCH (08:26)
[2018-05-18] MEDS: CARVEDILOL 25 MG TABLET PO SCH ×2 (08:37→21:15)
[2018-05-18] MEDS: SODIUM CHLORIDE 0.9% 1,000 ML IV SCH (10:10)
[2018-05-19 05:52] LABS: Basophils % 0.4 % (0.0-0.8); Eosinophils # 0.2 10*3/uL (0.0-0.87); Eosinophils % 2.7 % (0.00-10.9); Hematocrit 27.8 VOL% (35.7-47.0); Immature Granulocytes % 0.5 %; Immature Granulocytes Absolute 0.04 #; Lymphocytes # 1.2 10*3/uL (1.4-4.0); Mean Corpuscular HGB Conc 32.4 GM/DL (32-36); Mean Corpuscular Hemoglobin 29 PG (27-34); Mean Corpuscular Volume 88.8 FL (87-102); Mean Platelet Volume 12.2 FL (9.6-12.0); Monocytes # 0.6 10*3/uL (0.11-0.8); Neutrophils # 5.5 10*3/uL (1.4-7.4); Neutrophils % 72.4 % (38.7-73.9); Platelet Count 120 T/CUMM (130-400); Red Blood Count 3.13 MC/CUMM (3.8-5.5); Red Cell Distribution Width 15.3 % (9.3-17.3); White Blood Count 7.5 T/CUMM (4-12)
[2018-05-19 06:05] LABS: Calcium 8.5 MG/DL (8.5-10.1); Potassium 4.1 MMOL/L (3.5-5.1)
[2018-05-19] MEDS: SODIUM CHLORIDE 0.9% 1,000 ML IV SCH (06:38)
[2018-05-19] MEDS: LEVOTHYROXINE 75 MCG TABLET PO SCH (06:38)
[2018-05-19] MEDS: ATORVASTATIN 80 MG TABLET PO SCH (08:21)
[2018-05-19] MEDS: CARVEDILOL 25 MG TABLET PO SCH ×2 (08:21→20:24)
[2018-05-19] MEDS: LOSARTAN 25 MG TABLET PO SCH ×2 (08:21→20:24)
[2018-05-19] MEDS: FUROSEMIDE 20 MG TABLET PO SCH ×2 (08:21→15:20)
[2018-05-19] MEDS: FERROUS SULFATE 325 MG TABLET PO SCH ×2 (08:21→20:24)
[2018-05-19] MEDS: PANTOPRAZOLE 40 MG TABLET PO SCH ×2 (08:21→20:24)
[2018-05-19] MEDS: TIMOLOL 0.5% OPH SOLN 5 ML BOTTLE BOTH EYES SCH (08:22)
[2018-05-19] MEDS: ALLOPURINOL 100 MG TABLET PO SCH ×2 (08:22→08:23)
[2018-05-20] MEDS: SODIUM CHLORIDE 0.9% 1,000 ML IV SCH ×2 (01:21→21:52)
[2018-05-20 05:27] LABS: Basophils % 0.4 % (0.0-0.8); Eosinophils # 0.2 10*3/uL (0.0-0.87); Eosinophils % 3.1 % (0.00-10.9); Hematocrit 26.2 VOL% (35.7-47.0); Hemoglobin 8.4 GM/DL (12.0-16.0); Immature Granulocytes % 0.7 %; Immature Granulocytes Absolute 0.05 #; Lymphocytes # 1.5 10*3/uL (1.4-4.0); Lymphocytes % 21.7 % (21.3-54.2); Mean Corpuscular HGB Conc 32.1 GM/DL (32-36); Mean Corpuscular Hemoglobin 28 PG (27-34); Mean Corpuscular Volume 88.5 FL (87-102); Mean Platelet Volume 11.2 FL (9.6-12.0); Monocytes # 0.6 10*3/uL (0.11-0.8); Monocytes % 8.7 % (1.7-12.7); Neutrophils # 4.6 10*3/uL (1.4-7.4); Neutrophils % 65.4 % (38.7-73.9); Platelet Count 122 T/CUMM (130-400); Red Blood Count 2.96 MC/CUMM (3.8-5.5); Red Cell Distribution Width 15.1 % (9.3-17.3)
[2018-05-20] MEDS: LEVOTHYROXINE 75 MCG TABLET PO SCH (06:00)
[2018-05-20 06:03] LABS: Calcium 8.2 MG/DL (8.5-10.1); Potassium 3.4 MMOL/L (3.5-5.1)
[2018-05-20] MEDS: FERROUS SULFATE 325 MG TABLET PO SCH ×2 (08:04→21:49)
[2018-05-20] MEDS: LOSARTAN 25 MG TABLET PO SCH ×2 (08:04→21:49)
[2018-05-20] MEDS: ALLOPURINOL 100 MG TABLET PO SCH (08:04)
[2018-05-20] MEDS: PANTOPRAZOLE 40 MG TABLET PO SCH ×2 (08:04→21:49)
[2018-05-20] MEDS: FUROSEMIDE 20 MG TABLET PO SCH ×2 (08:04→15:09)
[2018-05-20] MEDS: CARVEDILOL 25 MG TABLET PO SCH ×2 (08:04→21:49)
[2018-05-20] MEDS: ATORVASTATIN 80 MG TABLET PO SCH (08:04)
[2018-05-20] MEDS: TIMOLOL 0.5% OPH SOLN 5 ML BOTTLE BOTH EYES SCH (08:05)
[2018-05-20] MEDS ORDERED: ASPIRIN EC 81 MG TABLET PO SCH (09:00)
[2018-05-20] MEDS: POTASSIUM CHLORIDE 20 MEQ/15 ML UDCUP PO PRN ×2 (12:43→15:10)
[2018-05-21 05:35] LABS: Basophils % 0.3 % (0.0-0.8); Eosinophils # 0.2 10*3/uL (0.0-0.87); Eosinophils % 3.2 % (0.00-10.9); Hematocrit 26.5 VOL% (35.7-47.0); Hemoglobin 8.5 GM/DL (12.0-16.0); Immature Granulocytes % 1.1 %; Immature Granulocytes Absolute 0.07 #; Lymphocytes # 1.5 10*3/uL (1.4-4.0); Lymphocytes % 23.4 % (21.3-54.2); Mean Corpuscular HGB Conc 32.1 GM/DL (32-36); Mean Corpuscular Hemoglobin 28 PG (27-34); Mean Corpuscular Volume 88.3 FL (87-102); Mean Platelet Volume 11.6 FL (9.6-12.0); Monocytes # 0.6 10*3/uL (0.11-0.8); Monocytes % 8.9 % (1.7-12.7); Neutrophils % 63.1 % (38.7-73.9); Platelet Count 132 T/CUMM (130-400); Red Cell Distribution Width 14.7 % (9.3-17.3); White Blood Count 6.3 T/CUMM (4-12)
[2018-05-21 05:52] LABS: Calcium 8.1 MG/DL (8.5-10.1); Potassium 3.6 MMOL/L (3.5-5.1)
[2018-05-21] MEDS: LEVOTHYROXINE 75 MCG TABLET PO SCH (06:31)
[2018-05-21] MEDS: ATORVASTATIN 80 MG TABLET PO SCH (09:18)
[2018-05-21] MEDS: FUROSEMIDE 20 MG TABLET PO SCH ×2 (09:20→15:55)
[2018-05-21] MEDS: ALLOPURINOL 100 MG TABLET PO SCH (09:20)
[2018-05-21] MEDS: CARVEDILOL 25 MG TABLET PO SCH ×2 (09:20→20:25)
[2018-05-21] MEDS: LOSARTAN 25 MG TABLET PO SCH ×2 (09:20→20:25)
[2018-05-21] MEDS: PANTOPRAZOLE 40 MG TABLET PO SCH ×2 (09:20→20:25)
[2018-05-21] MEDS: FERROUS SULFATE 325 MG TABLET PO SCH ×2 (09:20→20:25)
[2018-05-21] MEDS: TIMOLOL 0.5% OPH SOLN 5 ML BOTTLE BOTH EYES SCH (09:29)
[2018-05-21] MEDS: ASPIRIN EC 81 MG TABLET PO SCH (10:02)
[2018-05-21] MEDS: SODIUM CHLORIDE 0.9% 1,000 ML IV SCH (20:25)
[2018-05-22 05:44] LABS: Osmolality,Calculated 280.3 MOS/KG (273-304); Potassium 3.3 MMOL/L (3.5-5.1)
[2018-05-22 05:46] LABS: Basophils % 0.4 % (0.0-0.8); Eosinophils # 0.2 10*3/uL (0.0-0.87); Eosinophils % 2.6 % (0.00-10.9); Hematocrit 25.9 VOL% (35.7-47.0); Hemoglobin 8.5 GM/DL (12.0-16.0); Immature Granulocytes Absolute 0.07 #; Lymphocytes # 1.3 10*3/uL (1.4-4.0); Lymphocytes % 19.1 % (21.3-54.2); Mean Corpuscular HGB Conc 32.8 GM/DL (32-36); Mean Corpuscular Hemoglobin 29 PG (27-34); Mean Corpuscular Volume 88.7 FL (87-102); Mean Platelet Volume 11.6 FL (9.6-12.0); Monocytes # 0.5 10*3/uL (0.11-0.8); Monocytes % 7.5 % (1.7-12.7); Neutrophils # 4.7 10*3/uL (1.4-7.4); Neutrophils % 69.4 % (38.7-73.9); Platelet Count 137 T/CUMM (130-400); Red Blood Count 2.92 MC/CUMM (3.8-5.5); Red Cell Distribution Width 14.8 % (9.3-17.3); White Blood Count 6.8 T/CUMM (4-12)
[2018-05-22] MEDS: LEVOTHYROXINE 75 MCG TABLET PO SCH (06:49)
[2018-05-22] MEDS ORDERED: MAGNESIUM SULF RIDER 2 GM in PREMIX 1 EACH IV PRN (07:50)
[2018-05-22] MEDS ORDERED: MAGNESIUM SULF RIDER 4 GM in PREMIX 1 EACH IV PRN (07:50)
[2018-05-22] MEDS: POTASSIUM CHLORIDE 20 MEQ/15 ML UDCUP PO PRN (08:58)
[2018-05-22] MEDS: ATORVASTATIN 80 MG TABLET PO SCH (08:59)
[2018-05-22] MEDS: FERROUS SULFATE 325 MG TABLET PO SCH ×2 (08:59→21:02)
[2018-05-22] MEDS: ALLOPURINOL 100 MG TABLET PO SCH (08:59)
[2018-05-22] MEDS: ASPIRIN EC 81 MG TABLET PO SCH (08:59)
[2018-05-22] MEDS: LOSARTAN 25 MG TABLET PO SCH ×2 (08:59→21:01)
[2018-05-22] MEDS: PANTOPRAZOLE 40 MG TABLET PO SCH ×2 (08:59→21:02)
[2018-05-22] MEDS: CARVEDILOL 25 MG TABLET PO SCH ×2 (08:59→21:01)
[2018-05-22] MEDS: FUROSEMIDE 20 MG TABLET PO SCH ×2 (08:59→16:17)
[2018-05-22] MEDS: TIMOLOL 0.5% OPH SOLN 5 ML BOTTLE BOTH EYES SCH (09:00)
[2018-05-22] MEDS: CLOPIDOGREL 75 MG TABLET PO SCH (12:06)
[2018-05-22] MEDS: SODIUM CHLORIDE 0.9% 1,000 ML IV SCH (16:19)
[2018-05-23 05:18] LABS: Basophils % 0.6 % (0.0-0.8); Eosinophils # 0.2 10*3/uL (0.0-0.87); Eosinophils % 3.1 % (0.00-10.9); Hematocrit 27.3 VOL% (35.7-47.0); Hemoglobin 8.9 GM/DL (12.0-16.0); Immature Granulocytes % 0.9 %; Immature Granulocytes Absolute 0.06 #; Lymphocytes # 1.2 10*3/uL (1.4-4.0); Lymphocytes % 18.8 % (21.3-54.2); Mean Corpuscular HGB Conc 32.6 GM/DL (32-36); Mean Corpuscular Hemoglobin 29 PG (27-34); Mean Corpuscular Volume 89.2 FL (87-102); Mean Platelet Volume 11.1 FL (9.6-12.0); Monocytes # 0.6 10*3/uL (0.11-0.8); Monocytes % 8.6 % (1.7-12.7); Neutrophils # 4.3 10*3/uL (1.4-7.4); Platelet Count 165 T/CUMM (130-400); Red Blood Count 3.06 MC/CUMM (3.8-5.5); Red Cell Distribution Width 14.7 % (9.3-17.3); White Blood Count 6.4 T/CUMM (4-12)
[2018-05-23 05:38] LABS: Calcium 8.2 MG/DL (8.5-10.1); Osmolality,Calculated 282.1 MOS/KG (273-304); Potassium 3.4 MMOL/L (3.5-5.1)
[2018-05-23] MEDS: LEVOTHYROXINE 75 MCG TABLET PO SCH (06:10)
[2018-05-23] MEDS: LOSARTAN 25 MG TABLET PO SCH (09:37)
[2018-05-23] MEDS: CARVEDILOL 25 MG TABLET PO SCH (09:38)
[2018-05-23] MEDS: FERROUS SULFATE 325 MG TABLET PO SCH (09:38)
[2018-05-23] MEDS: CLOPIDOGREL 75 MG TABLET PO SCH (09:38)
[2018-05-23] MEDS: FUROSEMIDE 20 MG TABLET PO SCH (09:38)
[2018-05-23] MEDS: PANTOPRAZOLE 40 MG TABLET PO SCH (09:38)
[2018-05-23] MEDS: ALLOPURINOL 100 MG TABLET PO SCH (09:39)
[2018-05-23] MEDS: ASPIRIN EC 81 MG TABLET PO SCH (09:39)
[2018-05-23 11:51] VITALS: BP 123/55
== END 2018-05-23 14:16 | disposition home health service (06) | DRG 378 ==
LOC: N.ED 00:51 → N.EDINP 02:10 → N.3E 02:46 → N.ICU 07:33 → N.5E 05-18 13:21
PROVIDERS: ADMIT Family Medicine; ATTEND Family Medicine

== ENCOUNTER 2018-05-24 11:03 | Inpatient (IN) ==
[2018-05-24] MEDS ORDERED: ONDANSETRON 4 MG/2 ML VIAL IV STA (11:17)
[2018-05-24 12:06] LABS: Basophils % 0.6 % (0.0-0.8); Eosinophils # 0.2 10*3/uL (0.0-0.87); Eosinophils % 2.4 % (0.00-10.9); Hematocrit 30.2 VOL% (35.7-47.0); Hemoglobin 9.8 GM/DL (12.0-16.0); Immature Granulocytes % 1.1 %; Immature Granulocytes Absolute 0.07 #; Lymphocytes # 1.1 10*3/uL (1.4-4.0); Lymphocytes % 16.4 % (21.3-54.2); Mean Corpuscular HGB Conc 32.5 GM/DL (32-36); Mean Corpuscular Hemoglobin 29 PG (27-34); Mean Corpuscular Volume 89.6 FL (87-102); Mean Platelet Volume 10.6 FL (9.6-12.0); Monocytes # 0.5 10*3/uL (0.11-0.8); Monocytes % 7.6 % (1.7-12.7); Neutrophils # 4.7 10*3/uL (1.4-7.4); Neutrophils % 71.9 % (38.7-73.9); Platelet Count 195 T/CUMM (130-400); Red Blood Count 3.37 MC/CUMM (3.8-5.5); Red Cell Distribution Width 14.8 % (9.3-17.3); White Blood Count 6.5 T/CUMM (4-12)
[2018-05-24 12:14] LABS: INR 1.1; Partial Thromboplastin Time 26.8 SECS (0-40)
[2018-05-24] MEDS ORDERED: ONDANSETRON 4 MG/2 ML VIAL IV PRN (12:20)
[2018-05-24] MEDS ORDERED: SODIUM CHLORIDE 0.9% 1,000 ML IV PRN (12:23)
[2018-05-24] MEDS ORDERED: NITROGLYCERIN SL 0.4 MG TABLET SL PRN (12:26)
[2018-05-24 12:27] LABS: Bilirubin,Total 0.7 MG/DL (0.2-1.0); Calcium 8.8 MG/DL (8.5-10.1); Osmolality,Calculated 279.4 MOS/KG (273-304); Potassium 3.5 MMOL/L (3.5-5.1); Total Protein 6.1 G/DL (6.4-8.3)
[2018-05-24] MEDS: SODIUM CHLORIDE 0.9% 1,000 ML IV SCH ×2 (15:19→23:40)
[2018-05-24 18:47] LABS: Hematocrit 27.7 VOL% (35.7-47.0)
[2018-05-24] MEDS: FERROUS SULFATE 325 MG TABLET PO SCH (21:32)
[2018-05-24] MEDS: CARVEDILOL 25 MG TABLET PO SCH (21:32)
[2018-05-24] MEDS: methylPREDNISolone SOD SUC 40 MG/1 ML VIAL IV SCH (21:32)
[2018-05-25 02:10] LABS: Hematocrit 27.1 VOL% (35.7-47.0); Hemoglobin 8.6 GM/DL (12.0-16.0)
[2018-05-25 05:07] LABS: Hematocrit 27.3 VOL% (35.7-47.0); Hemoglobin 8.6 GM/DL (12.0-16.0); Immature Granulocytes % 0.9 %; Immature Granulocytes Absolute 0.06 #; Lymphocytes # 0.5 10*3/uL (1.4-4.0); Lymphocytes % 6.9 % (21.3-54.2); Mean Corpuscular HGB Conc 31.5 GM/DL (32-36); Mean Corpuscular Hemoglobin 29 PG (27-34); Mean Platelet Volume 10.8 FL (9.6-12.0); Monocytes # 0.1 10*3/uL (0.11-0.8); Monocytes % 0.7 % (1.7-12.7); Neutrophils # 6.1 10*3/uL (1.4-7.4); Neutrophils % 91.5 % (38.7-73.9); Platelet Count 180 T/CUMM (130-400); Red Cell Distribution Width 14.7 % (9.3-17.3); White Blood Count 6.7 T/CUMM (4-12)
[2018-05-25 06:28] LABS: Band Neutrophils 1 % (0-10); Lymphocytes 5 % (20-55); Metamyelocytes 1 %; Segmented Neutrophils 93 % (50-85); Total Cells Counted 100
[2018-05-25 06:29] LABS: Schistocytes Few
[2018-05-25 06:30] LABS: Acanthocytes 1+; Ovalocytes 1+; Platelet Estimate Normal; Poikilocytosis 1+
[2018-05-25 06:31] LABS: Hypochromasia Slight; Microcytosis 1+
[2018-05-25] MEDS: SODIUM CHLORIDE 0.9% 1,000 ML IV SCH ×5 (06:36→23:34)
[2018-05-25 06:46] LABS: Hematocrit 27.3 VOL% (35.7-47.0); Hemoglobin 8.7 GM/DL (12.0-16.0)
[2018-05-25] MEDS: LEVOTHYROXINE 50 MCG TABLET PO SCH (07:07)
[2018-05-25] MEDS: FERROUS SULFATE 325 MG TABLET PO SCH ×2 (08:57→20:19)
[2018-05-25] MEDS: methylPREDNISolone SOD SUC 40 MG/1 ML VIAL IV SCH ×2 (08:57→20:19)
[2018-05-25] MEDS: CARVEDILOL 25 MG TABLET PO SCH ×2 (08:57→16:46)
[2018-05-25] MEDS: COLCHICINE 0.6 MG TABLET PO SCH (08:57)
[2018-05-25] MEDS: PANTOPRAZOLE 40 MG VIAL IV SCH (08:58)
[2018-05-25] MEDS ORDERED: ALLOPURINOL 100 MG TABLET PO SCH (09:00)
[2018-05-25] MEDS: TIMOLOL 0.5% OPH SOLN 5 ML BOTTLE BOTH EYES SCH (12:22)
[2018-05-25] MEDS: ASPIRIN EC 81 MG TABLET PO SCH (16:46)
[2018-05-26] MEDS: SODIUM CHLORIDE 0.9% 1,000 ML IV SCH ×4 (04:18→23:35)
[2018-05-26] MEDS: LEVOTHYROXINE 50 MCG TABLET PO SCH (06:09)
[2018-05-26] MEDS: COLCHICINE 0.6 MG TABLET PO SCH (08:52)
[2018-05-26] MEDS: ASPIRIN EC 81 MG TABLET PO SCH (08:52)
[2018-05-26] MEDS: CARVEDILOL 25 MG TABLET PO SCH ×2 (08:52→16:28)
[2018-05-26] MEDS: FERROUS SULFATE 325 MG TABLET PO SCH ×2 (08:53→21:26)
[2018-05-26] MEDS: methylPREDNISolone SOD SUC 40 MG/1 ML VIAL IV SCH ×2 (08:53→21:26)
[2018-05-26] MEDS: PANTOPRAZOLE 40 MG VIAL IV SCH (08:53)
[2018-05-26] MEDS: TIMOLOL 0.5% OPH SOLN 5 ML BOTTLE BOTH EYES SCH (09:24)
[2018-05-26 20:48] LABS: Calcium 8.7 MG/DL (8.5-10.1); Osmolality,Calculated 288.3 MOS/KG (273-304); Potassium 3.4 MMOL/L (3.5-5.1)
[2018-05-26] MEDS: POTASSIUM CHLORIDE 20 MEQ TABLET PO PRN ×2 (21:26→23:30)
[2018-05-27] MEDS: POTASSIUM CHLORIDE 20 MEQ TABLET PO PRN (02:00)
[2018-05-27 05:38] LABS: Basophils % 0.1 % (0.0-0.8); Hematocrit 26.1 VOL% (35.7-47.0); Hemoglobin 8.4 GM/DL (12.0-16.0); Immature Granulocytes % 1.2 %; Immature Granulocytes Absolute 0.12 #; Lymphocytes # 0.5 10*3/uL (1.4-4.0); Lymphocytes % 5.4 % (21.3-54.2); Mean Corpuscular HGB Conc 32.2 GM/DL (32-36); Mean Corpuscular Hemoglobin 29 PG (27-34); Mean Corpuscular Volume 89.7 FL (87-102); Mean Platelet Volume 10.4 FL (9.6-12.0); Monocytes # 0.2 10*3/uL (0.11-0.8); Monocytes % 1.8 % (1.7-12.7); Neutrophils # 9.1 10*3/uL (1.4-7.4); Neutrophils % 91.5 % (38.7-73.9); Platelet Count 212 T/CUMM (130-400); Red Blood Count 2.91 MC/CUMM (3.8-5.5); Red Cell Distribution Width 14.6 % (9.3-17.3); White Blood Count 9.9 T/CUMM (4-12)
[2018-05-27 05:53] LABS: Calcium 8.5 MG/DL (8.5-10.1); Osmolality,Calculated 288.1 MOS/KG (273-304)
[2018-05-27 06:20] LABS: Lymphocytes 1 % (20-55); Platelet Estimate Normal; Segmented Neutrophils 99 % (50-85); Total Cells Counted 100
[2018-05-27 06:21] LABS: Polychromasia Few
[2018-05-27] MEDS: LEVOTHYROXINE 50 MCG TABLET PO SCH (07:00)
[2018-05-27] MEDS: SODIUM CHLORIDE 0.9% 1,000 ML IV SCH ×2 (07:08→09:00)
[2018-05-27] MEDS: COLCHICINE 0.6 MG TABLET PO SCH (09:02)
[2018-05-27] MEDS: FERROUS SULFATE 325 MG TABLET PO SCH ×2 (09:02→21:04)
[2018-05-27] MEDS: CARVEDILOL 25 MG TABLET PO SCH ×2 (09:02→17:17)
[2018-05-27] MEDS: ASPIRIN EC 81 MG TABLET PO SCH (09:02)
[2018-05-27] MEDS: methylPREDNISolone SOD SUC 40 MG/1 ML VIAL IV SCH ×2 (09:03→21:04)
[2018-05-27] MEDS: PANTOPRAZOLE 40 MG VIAL IV SCH (09:05)
[2018-05-27] MEDS: TIMOLOL 0.5% OPH SOLN 5 ML BOTTLE BOTH EYES SCH (09:08)
[2018-05-28 05:40] LABS: Basophils % 0.1 % (0.0-0.8); Hematocrit 26.4 VOL% (35.7-47.0); Hemoglobin 8.4 GM/DL (12.0-16.0); Lymphocytes # 0.5 10*3/uL (1.4-4.0); Lymphocytes % 5.1 % (21.3-54.2); Mean Corpuscular HGB Conc 31.8 GM/DL (32-36); Mean Corpuscular Hemoglobin 29 PG (27-34); Mean Corpuscular Volume 89.8 FL (87-102); Mean Platelet Volume 10.7 FL (9.6-12.0); Monocytes # 0.2 10*3/uL (0.11-0.8); Monocytes % 2.3 % (1.7-12.7); Neutrophils # 9.3 10*3/uL (1.4-7.4); Neutrophils % 91.5 % (38.7-73.9); Platelet Count 218 T/CUMM (130-400); Red Blood Count 2.94 MC/CUMM (3.8-5.5); Red Cell Distribution Width 14.9 % (9.3-17.3); White Blood Count 10.2 T/CUMM (4-12)
[2018-05-28 06:02] LABS: Calcium 8.7 MG/DL (8.5-10.1)
[2018-05-28 06:37] LABS: Band Neutrophils 1 % (0-10); Lymphocytes 4 % (20-55); Segmented Neutrophils 92 % (50-85); Total Cells Counted 100
[2018-05-28 06:39] LABS: Acanthocytes Few; Burr Cells Few; Hypochromasia Slight; Microcytosis 1+
[2018-05-28 06:40] LABS: Platelet Estimate Normal
[2018-05-28] MEDS: LEVOTHYROXINE 50 MCG TABLET PO SCH (07:08)
[2018-05-28 07:48] VITALS: BP 125/63
[2018-05-28] MEDS: TIMOLOL 0.5% OPH SOLN 5 ML BOTTLE BOTH EYES SCH (08:05)
[2018-05-28] MEDS: CARVEDILOL 25 MG TABLET PO SCH (08:06)
[2018-05-28] MEDS: methylPREDNISolone SOD SUC 40 MG/1 ML VIAL IV SCH (08:06)
[2018-05-28] MEDS: FERROUS SULFATE 325 MG TABLET PO SCH (08:06)
[2018-05-28] MEDS: PANTOPRAZOLE 40 MG VIAL IV SCH (08:08)
[2018-05-29] MEDS ORDERED: predniSONE 10 MG TABLET PO SCH (09:00)
[2018-05-29] MEDS ORDERED: ASPIRIN CHEW 81 MG TABLET PO SCH (09:00)
== END 2018-05-28 10:22 | disposition home or self-care (01) | DRG 813 ==
LOC: N.ED 11:03 → N.EDINP 12:20 → N.TELES 14:31
PROVIDERS: ADMIT Family Medicine; ATTEND Family Medicine

== ENCOUNTER 2018-06-29 05:11 | Inpatient (IN) ==
[2018-06-29] MEDS ORDERED: SODIUM CHLORIDE 0.9% 1,000 ML IV STA (06:27)
[2018-06-29 07:10] LABS: Basophils % 0.3 % (0.0-0.8); Eosinophils % 0.3 % (0.00-10.9); Hematocrit 24.8 VOL% (35.7-47.0); Hemoglobin 8.1 GM/DL (12.0-16.0); Immature Granulocytes % 0.6 %; Immature Granulocytes Absolute 0.04 #; Lymphocytes # 0.7 10*3/uL (1.4-4.0); Lymphocytes % 10.4 % (21.3-54.2); Mean Corpuscular HGB Conc 32.7 GM/DL (32-36); Mean Corpuscular Hemoglobin 29 PG (27-34); Mean Corpuscular Volume 87.9 FL (87-102); Mean Platelet Volume 12.5 FL (9.6-12.0); Monocytes # 0.5 10*3/uL (0.11-0.8); Monocytes % 7.3 % (1.7-12.7); Neutrophils # 5.2 10*3/uL (1.4-7.4); Neutrophils % 81.1 % (38.7-73.9); Platelet Count 193 T/CUMM (130-400); Red Blood Count 2.82 MC/CUMM (3.8-5.5); Red Cell Distribution Width 17.2 % (9.3-17.3); White Blood Count 6.5 T/CUMM (4-12)
[2018-06-29 07:32] LABS: Bilirubin,Total 0.8 MG/DL (0.2-1.0); Calcium 8.3 MG/DL (8.5-10.1); Osmolality,Calculated 270.1 MOS/KG (273-304); Potassium 3.9 MMOL/L (3.5-5.1); Total Protein 5.1 G/DL (6.4-8.3)
[2018-06-29] MEDS ORDERED: PIPERACILLIN/TAZOBACTAM 3,375 MG in SODIUM CHLORIDE 0.9% 100 ML IV STA (08:33)
[2018-06-29] MEDS ORDERED: PIPERACILLIN/TAZOBACTAM 3,375 MG VIAL IV ONE (08:36)
[2018-06-29] MEDS ORDERED: ACETAMINOPHEN 325 MG TABLET PO PRN (09:02)
[2018-06-29] MEDS ORDERED: ONDANSETRON 4 MG/2 ML VIAL IV PRN (09:02)
[2018-06-29] MEDS: SODIUM CHLORIDE 0.45% 1,000 ML IV SCH (12:08)
[2018-06-29] MEDS: ENOXAPARIN 30 MG/0.3 ML SYRINGE SUBCUT SCH (12:08)
[2018-06-29] MEDS ORDERED: NITROGLYCERIN SL 0.4 MG TABLET SL PRN (12:44)
[2018-06-29 15:59] LABS: Apearance,Urine CLOUDY (Clear); Bilirubin,Urine Negative (Negative); Blood, Urine Small mg/dL (Negative); Glucose,Urine (UA) Negative (Negative); Ketones,Urine 5 mg/dL (Negative); Mucus,Urine Occasional /LPF (Occasional); Nitrite,Urine Negative (Negative); Protein,Urine 100 MG/DL; Squamous Epithelial Cell,Urine Occasional /HPF (0-10); Urine Color Dark yellow (Yellow); Urine Specific Gravity 1.016 (1.001-1.035); Urine Urobilinogen < 2.0 EU/DL (0.2-1.0); WBC,Urine 6 /HPF (0-6)
[2018-06-29] MEDS: PIPERACILLIN/TAZOBACTAM 3,375 MG in SODIUM CHLORIDE 0.9% 100 ML IV SCH (17:52)
[2018-06-29] MEDS: MORPHINE 4 MG/1 ML VIAL IV PRN (19:35)
[2018-06-29] MEDS: OSELTAMIVIR 75 MG CAPSULE PO SCH (20:34)
[2018-06-29] MEDS: CARVEDILOL 25 MG TABLET PO SCH (20:34)
[2018-06-29] MEDS: DOCUSATE SODIUM 100 MG CAPSULE PO SCH (20:34)
[2018-06-29] MEDS: FERROUS SULFATE 325 MG TABLET PO SCH (20:34)
[2018-06-29] MEDS: LOSARTAN 25 MG TABLET PO SCH (20:34)
[2018-06-30] MEDS: MORPHINE 4 MG/1 ML VIAL IV PRN (00:11)
[2018-06-30] MEDS: PIPERACILLIN/TAZOBACTAM 3,375 MG in SODIUM CHLORIDE 0.9% 100 ML IV SCH ×3 (02:52→17:49)
[2018-06-30] MEDS: SODIUM CHLORIDE 0.45% 1,000 ML IV SCH ×2 (02:52→14:01)
[2018-06-30 04:19] LABS: Basophils % 0.2 % (0.0-0.8); Eosinophils # 0.1 10*3/uL (0.0-0.87); Eosinophils % 1.2 % (0.00-10.9); Hematocrit 21.9 VOL% (35.7-47.0); Immature Granulocytes % 0.5 %; Immature Granulocytes Absolute 0.02 #; Lymphocytes # 1.1 10*3/uL (1.4-4.0); Lymphocytes % 25.7 % (21.3-54.2); Mean Corpuscular Hemoglobin 28 PG (27-34); Mean Corpuscular Volume 87.6 FL (87-102); Mean Platelet Volume 12.9 FL (9.6-12.0); Monocytes # 0.5 10*3/uL (0.11-0.8); Monocytes % 12.2 % (1.7-12.7); Neutrophils # 2.5 10*3/uL (1.4-7.4); Neutrophils % 60.2 % (38.7-73.9); Platelet Count 166 T/CUMM (130-400); Red Cell Distribution Width 17.1 % (9.3-17.3); White Blood Count 4.2 T/CUMM (4-12)
[2018-06-30 04:45] LABS: Calcium 7.6 MG/DL (8.5-10.1); Osmolality,Calculated 275.7 MOS/KG (273-304); Potassium 3.1 MMOL/L (3.5-5.1)
[2018-06-30] MEDS: LEVOTHYROXINE 50 MCG TABLET PO SCH (06:14)
[2018-06-30] MEDS ORDERED: POTASSIUM CHLORIDE 20 MEQ TABLET PO ONE (08:39)
[2018-06-30] MEDS: CARVEDILOL 25 MG TABLET PO SCH ×2 (09:48→22:31)
[2018-06-30] MEDS: LOSARTAN 25 MG TABLET PO SCH ×2 (09:48→22:32)
[2018-06-30] MEDS: DOCUSATE SODIUM 100 MG CAPSULE PO SCH ×3 (09:48→22:33)
[2018-06-30] MEDS: TIMOLOL 0.5% OPH SOLN 5 ML BOTTLE BOTH EYES SCH (09:50)
[2018-06-30] MEDS: ALLOPURINOL 100 MG TABLET PO SCH (09:50)
[2018-06-30] MEDS: ATORVASTATIN 80 MG TABLET PO SCH (09:50)
[2018-06-30] MEDS: ASPIRIN CHEW 81 MG TABLET PO SCH (09:50)
[2018-06-30] MEDS: PANTOPRAZOLE 40 MG TABLET PO SCH (09:50)
[2018-06-30] MEDS: OSELTAMIVIR 75 MG CAPSULE PO SCH ×2 (09:50→22:32)
[2018-06-30] MEDS: FERROUS SULFATE 325 MG TABLET PO SCH ×2 (09:50→22:32)
[2018-06-30] MEDS: ENOXAPARIN 30 MG/0.3 ML SYRINGE SUBCUT SCH (11:27)
[2018-06-30 12:44] LABS: Hematocrit 23.9 VOL% (35.7-47.0); Hemoglobin 7.7 GM/DL (12.0-16.0)
[2018-07-01] MEDS: PIPERACILLIN/TAZOBACTAM 3,375 MG in SODIUM CHLORIDE 0.9% 100 ML IV SCH ×3 (01:10→17:09)
[2018-07-01] MEDS: LEVOTHYROXINE 50 MCG TABLET PO SCH (06:27)
[2018-07-01 06:51] LABS: Basophils % 0.2 % (0.0-0.8); Eosinophils # 0.1 10*3/uL (0.0-0.87); Eosinophils % 1.5 % (0.00-10.9); Hematocrit 22.6 VOL% (35.7-47.0); Hemoglobin 7.3 GM/DL (12.0-16.0); Immature Granulocytes % 0.4 %; Immature Granulocytes Absolute 0.02 #; Lymphocytes # 1.1 10*3/uL (1.4-4.0); Lymphocytes % 24.9 % (21.3-54.2); Mean Corpuscular HGB Conc 32.3 GM/DL (32-36); Mean Corpuscular Hemoglobin 28 PG (27-34); Mean Corpuscular Volume 86.9 FL (87-102); Mean Platelet Volume 12.9 FL (9.6-12.0); Monocytes # 0.5 10*3/uL (0.11-0.8); Monocytes % 11.1 % (1.7-12.7); Neutrophils # 2.8 10*3/uL (1.4-7.4); Neutrophils % 61.9 % (38.7-73.9); Platelet Count 159 T/CUMM (130-400); Red Cell Distribution Width 17.2 % (9.3-17.3); White Blood Count 4.6 T/CUMM (4-12)
[2018-07-01 07:14] LABS: Calcium 7.6 MG/DL (8.5-10.1); Osmolality,Calculated 278.4 MOS/KG (273-304); Potassium 3.3 MMOL/L (3.5-5.1)
[2018-07-01] MEDS: ASPIRIN CHEW 81 MG TABLET PO SCH (08:43)
[2018-07-01] MEDS: CARVEDILOL 25 MG TABLET PO SCH ×2 (08:43→21:52)
[2018-07-01] MEDS: FERROUS SULFATE 325 MG TABLET PO SCH ×2 (08:43→21:52)
[2018-07-01] MEDS: ATORVASTATIN 80 MG TABLET PO SCH (08:43)
[2018-07-01] MEDS: ALLOPURINOL 100 MG TABLET PO SCH (08:43)
[2018-07-01] MEDS: PANTOPRAZOLE 40 MG TABLET PO SCH (08:43)
[2018-07-01] MEDS: OSELTAMIVIR 75 MG CAPSULE PO SCH ×2 (08:43→21:52)
[2018-07-01] MEDS: TIMOLOL 0.5% OPH SOLN 5 ML BOTTLE BOTH EYES SCH (08:43)
[2018-07-01] MEDS: LOSARTAN 25 MG TABLET PO SCH (08:43)
[2018-07-01] MEDS: DOCUSATE SODIUM 100 MG CAPSULE PO SCH ×2 (08:44→21:52)
[2018-07-01 08:57] LABS: Albumin 1.5 G/DL (3.4-5.0); Bilirubin,Direct 0.31 MG/DL (0.0-0.20); Bilirubin,Indirect 0.3 MG/DL (0.0-1.0); Bilirubin,Total 0.6 MG/DL (0.2-1.0)
[2018-07-01] MEDS ORDERED: HYDROCORTISONE 2.5% RECTAL CREAM 30 GM TUBE TOP PRN (10:23)
[2018-07-01] MEDS: ENOXAPARIN 30 MG/0.3 ML SYRINGE SUBCUT SCH (13:11)
[2018-07-01] MEDS: SODIUM CHLORIDE 0.45% 1,000 ML IV SCH (15:12)
[2018-07-02] MEDS: SODIUM CHLORIDE 0.45% 1,000 ML IV SCH ×2 (01:47→16:02)
[2018-07-02] MEDS: PIPERACILLIN/TAZOBACTAM 3,375 MG in SODIUM CHLORIDE 0.9% 100 ML IV SCH ×2 (01:47→09:13)
[2018-07-02] MEDS: LEVOTHYROXINE 50 MCG TABLET PO SCH (06:46)
[2018-07-02 07:57] LABS: Calcium 7.5 MG/DL (8.5-10.1); Osmolality,Calculated 279.3 MOS/KG (273-304); Potassium 2.8 MMOL/L (3.5-5.1)
[2018-07-02 08:02] LABS: Albumin 1.4 G/DL (3.4-5.0); Bilirubin,Direct 0.32 MG/DL (0.0-0.20); Bilirubin,Indirect 0.6 MG/DL (0.0-1.0); Bilirubin,Total 0.9 MG/DL (0.2-1.0); Total Protein 4.2 G/DL (6.4-8.3)
[2018-07-02] MEDS: ALLOPURINOL 100 MG TABLET PO SCH (09:16)
[2018-07-02] MEDS: ATORVASTATIN 80 MG TABLET PO SCH (09:16)
[2018-07-02] MEDS: FERROUS SULFATE 325 MG TABLET PO SCH ×2 (09:16→22:02)
[2018-07-02] MEDS: PANTOPRAZOLE 40 MG TABLET PO SCH (09:16)
[2018-07-02] MEDS: TIMOLOL 0.5% OPH SOLN 5 ML BOTTLE BOTH EYES SCH (09:22)
[2018-07-02] MEDS: DOCUSATE SODIUM 100 MG CAPSULE PO SCH ×2 (09:28→22:02)
[2018-07-02] MEDS: CARVEDILOL 25 MG TABLET PO SCH ×2 (09:29→22:02)
[2018-07-02] MEDS: POTASSIUM CHLORIDE 20 MEQ/15 ML UDCUP PER TUBE PRN ×4 (10:18→18:26)
[2018-07-02 10:23] LABS: Basophils % 0.6 % (0.0-0.8); Eosinophils # 0.1 10*3/uL (0.0-0.87); Eosinophils % 1.4 % (0.00-10.9); Hematocrit 25.5 VOL% (35.7-47.0); Hemoglobin 8.1 GM/DL (12.0-16.0); Immature Granulocytes Absolute 0.05 #; Lymphocytes # 1.2 10*3/uL (1.4-4.0); Lymphocytes % 23.3 % (21.3-54.2); Mean Corpuscular HGB Conc 31.8 GM/DL (32-36); Mean Corpuscular Hemoglobin 28 PG (27-34); Mean Corpuscular Volume 87.6 FL (87-102); Mean Platelet Volume 13.4 FL (9.6-12.0); Monocytes # 0.6 10*3/uL (0.11-0.8); Monocytes % 11.8 % (1.7-12.7); Neutrophils # 3.1 10*3/uL (1.4-7.4); Neutrophils % 61.9 % (38.7-73.9); Platelet Count 162 T/CUMM (130-400); Red Blood Count 2.91 MC/CUMM (3.8-5.5); Red Cell Distribution Width 17.4 % (9.3-17.3)
[2018-07-02 11:12] LABS: Eosinophils 1 % (0-10); Hypochromasia 1+; Lymphocytes 22 % (20-55); Ovalocytes Slight; Segmented Neutrophils 70 % (50-85); Total Cells Counted 100
[2018-07-02 11:13] LABS: Acanthocytes Few; Platelet Estimate Normal
[2018-07-02] MEDS: VANCOMYCIN 50 MG/ML 60 ML/BOTTLE PO SCH ×3 (13:01→23:57)
[2018-07-02] MEDS: ASPIRIN CHEW 81 MG TABLET PO SCH (15:38)
[2018-07-02] MEDS: ENOXAPARIN 30 MG/0.3 ML SYRINGE SUBCUT SCH (18:26)
[2018-07-02 20:55] LABS: Apearance,Urine CLOUDY (Clear); Bacteria,Urine Occasional /HPF (Few); Bilirubin,Urine Negative (Negative); Blood, Urine Moderate mg/dL (Negative); Glucose,Urine (UA) Negative (Negative); Ketones,Urine Negative (Negative); Mucus,Urine Occasional /LPF (Occasional); Nitrite,Urine Negative (Negative); Protein,Urine Negative; RBC,Urine 3 /HPF (0-4); Squamous Epithelial Cell,Urine Occasional /HPF (0-10); Urine Color Yellow (Yellow); Urine Specific Gravity 1.008 (1.001-1.035); Urine Urobilinogen < 2.0 EU/DL (0.2-1.0); WBC,Urine 11 /HPF (0-6)
[2018-07-03] MEDS: SODIUM CHLORIDE 0.45% 1,000 ML IV SCH (05:27)
[2018-07-03] MEDS: LEVOTHYROXINE 50 MCG TABLET PO SCH (06:52)
[2018-07-03] MEDS: VANCOMYCIN 50 MG/ML 60 ML/BOTTLE PO SCH ×3 (06:52→18:20)
[2018-07-03 08:33] LABS: Calcium 7.5 MG/DL (8.5-10.1); Osmolality,Calculated 277.5 MOS/KG (273-304); Potassium 3.9 MMOL/L (3.5-5.1)
[2018-07-03] MEDS: ATORVASTATIN 80 MG TABLET PO SCH (09:08)
[2018-07-03] MEDS: CARVEDILOL 25 MG TABLET PO SCH ×2 (09:08→20:46)
[2018-07-03] MEDS: PANTOPRAZOLE 40 MG TABLET PO SCH (09:08)
[2018-07-03] MEDS: ASPIRIN CHEW 81 MG TABLET PO SCH (09:08)
[2018-07-03] MEDS: DOCUSATE SODIUM 100 MG CAPSULE PO SCH ×2 (09:08→20:46)
[2018-07-03] MEDS: FERROUS SULFATE 325 MG TABLET PO SCH ×2 (09:08→20:46)
[2018-07-03] MEDS: ALLOPURINOL 100 MG TABLET PO SCH (09:08)
[2018-07-03] MEDS: TIMOLOL 0.5% OPH SOLN 5 ML BOTTLE BOTH EYES SCH (09:11)
[2018-07-03] MEDS: ENOXAPARIN 30 MG/0.3 ML SYRINGE SUBCUT SCH (13:01)
[2018-07-03 23:27] LABS: Apearance,Urine CLOUDY (Clear); Bilirubin,Urine Negative (Negative); Blood, Urine Small mg/dL (Negative); Glucose,Urine (UA) Negative (Negative); Ketones,Urine Negative (Negative); Mucus,Urine Occasional /LPF (Occasional); Nitrite,Urine Negative (Negative); Protein,Urine Negative; Squamous Epithelial Cell,Urine Occasional /HPF (0-10); Urine Color Yellow (Yellow); Urine Specific Gravity 1.006 (1.001-1.035); Urine Urobilinogen < 2.0 EU/DL (0.2-1.0); WBC,Urine 3 /HPF (0-6)
[2018-07-04] MEDS: VANCOMYCIN 50 MG/ML 60 ML/BOTTLE PO SCH ×4 (00:15→17:34)
[2018-07-04] MEDS: SODIUM CHLORIDE 0.9% 1,000 ML IV SCH ×3 (01:57→22:08)
[2018-07-04 04:57] LABS: Calcium 7.3 MG/DL (8.5-10.1); Osmolality,Calculated 272.8 MOS/KG (273-304); Potassium 3.4 MMOL/L (3.5-5.1)
[2018-07-04] MEDS: LEVOTHYROXINE 50 MCG TABLET PO SCH (06:00)
[2018-07-04] MEDS: ALLOPURINOL 100 MG TABLET PO SCH (09:32)
[2018-07-04] MEDS: ATORVASTATIN 80 MG TABLET PO SCH (09:32)
[2018-07-04] MEDS: FERROUS SULFATE 325 MG TABLET PO SCH ×2 (09:32→22:07)
[2018-07-04] MEDS: ASPIRIN CHEW 81 MG TABLET PO SCH (09:32)
[2018-07-04] MEDS: PANTOPRAZOLE 40 MG TABLET PO SCH (09:32)
[2018-07-04] MEDS: CARVEDILOL 25 MG TABLET PO SCH ×2 (09:32→22:07)
[2018-07-04] MEDS: TIMOLOL 0.5% OPH SOLN 5 ML BOTTLE BOTH EYES SCH (09:33)
[2018-07-04] MEDS: DOCUSATE SODIUM 100 MG CAPSULE PO SCH ×2 (09:33→22:08)
[2018-07-04] MEDS: ENOXAPARIN 30 MG/0.3 ML SYRINGE SUBCUT SCH (13:26)
[2018-07-04] MEDS ORDERED: MAGNESIUM SULF RIDER 2 GM in PREMIX 1 EACH IV PRN (13:53)
[2018-07-04] MEDS ORDERED: MAGNESIUM SULF RIDER 4 GM in PREMIX 1 EACH IV PRN (13:53)
[2018-07-04] MEDS: POTASSIUM CHLORIDE 20 MEQ/15 ML UDCUP PER TUBE PRN ×2 (15:34→17:56)
[2018-07-04 15:56] LABS: Basophils % 0.6 % (0.0-0.8); Eosinophils # 0.1 10*3/uL (0.0-0.87); Eosinophils % 2.2 % (0.00-10.9); Hematocrit 22.6 VOL% (35.7-47.0); Hemoglobin 7.4 GM/DL (12.0-16.0); Lymphocytes # 1.3 10*3/uL (1.4-4.0); Lymphocytes % 27.4 % (21.3-54.2); Mean Corpuscular HGB Conc 32.7 GM/DL (32-36); Mean Corpuscular Hemoglobin 28 PG (27-34); Monocytes # 0.5 10*3/uL (0.11-0.8); Monocytes % 9.8 % (1.7-12.7); Neutrophils # 2.8 10*3/uL (1.4-7.4); Platelet Count 103 T/CUMM (130-400); Red Blood Count 2.66 MC/CUMM (3.8-5.5); White Blood Count 4.9 T/CUMM (4-12)
[2018-07-05 06:26] LABS: Basophils % 0.4 % (0.0-0.8); Eosinophils # 0.1 10*3/uL (0.0-0.87); Eosinophils % 2.3 % (0.00-10.9); Hematocrit 22.9 VOL% (35.7-47.0); Hemoglobin 7.4 GM/DL (12.0-16.0); Immature Granulocytes % 2.7 %; Immature Granulocytes Absolute 0.13 #; Lymphocytes # 1.3 10*3/uL (1.4-4.0); Lymphocytes % 27.7 % (21.3-54.2); Mean Corpuscular HGB Conc 32.3 GM/DL (32-36); Mean Corpuscular Hemoglobin 28 PG (27-34); Mean Corpuscular Volume 85.8 FL (87-102); Mean Platelet Volume 13.4 FL (9.6-12.0); Monocytes # 0.5 10*3/uL (0.11-0.8); Neutrophils # 2.7 10*3/uL (1.4-7.4); Neutrophils % 56.9 % (38.7-73.9); Platelet Count 105 T/CUMM (130-400); Red Blood Count 2.67 MC/CUMM (3.8-5.5); Red Cell Distribution Width 17.9 % (9.3-17.3); White Blood Count 4.8 T/CUMM (4-12)
[2018-07-05] MEDS: SODIUM CHLORIDE 0.9% 1,000 ML IV SCH ×2 (06:27→14:10)
[2018-07-05 06:28] LABS: Calcium 7.4 MG/DL (8.5-10.1); Osmolality,Calculated 275.5 MOS/KG (273-304); Potassium 3.7 MMOL/L (3.5-5.1)
[2018-07-05] MEDS: LEVOTHYROXINE 50 MCG TABLET PO SCH (06:28)
[2018-07-05] MEDS: VANCOMYCIN 50 MG/ML 60 ML/BOTTLE PO SCH ×4 (06:28→17:51)
[2018-07-05] MEDS: ALLOPURINOL 100 MG TABLET PO SCH (09:08)
[2018-07-05] MEDS: CARVEDILOL 25 MG TABLET PO SCH ×2 (09:08→21:51)
[2018-07-05] MEDS: FERROUS SULFATE 325 MG TABLET PO SCH ×2 (09:08→21:51)
[2018-07-05] MEDS: ATORVASTATIN 80 MG TABLET PO SCH (09:08)
[2018-07-05] MEDS: PANTOPRAZOLE 40 MG TABLET PO SCH (09:08)
[2018-07-05] MEDS: ASPIRIN CHEW 81 MG TABLET PO SCH (09:08)
[2018-07-05] MEDS: DOCUSATE SODIUM 100 MG CAPSULE PO SCH ×2 (09:08→21:51)
[2018-07-05] MEDS: TIMOLOL 0.5% OPH SOLN 5 ML BOTTLE BOTH EYES SCH (09:15)
[2018-07-05 09:16] LABS: Burr Cells 3+; Platelet Estimate Adequate; Polychromasia Slight
[2018-07-05] MEDS ORDERED: FUROSEMIDE 20 MG/2 ML VIAL IV ONE ×3 (11:47→18:30)
[2018-07-05] MEDS ORDERED: SODIUM CHLORIDE 0.9% 1,000 ML IV PRN (11:48)
[2018-07-05] MEDS: LORATADINE 10 MG TABLET PO SCH (14:09)
[2018-07-05] MEDS: ENOXAPARIN 30 MG/0.3 ML SYRINGE SUBCUT SCH (14:09)
[2018-07-06] MEDS: VANCOMYCIN 50 MG/ML 60 ML/BOTTLE PO SCH ×4 (00:05→17:57)
[2018-07-06 05:35] LABS: Basophils % 0.5 % (0.0-0.8); Eosinophils # 0.1 10*3/uL (0.0-0.87); Eosinophils % 2.5 % (0.00-10.9); Hematocrit 31.3 VOL% (35.7-47.0); Hemoglobin 10.6 GM/DL (12.0-16.0); Immature Granulocytes % 3.1 %; Immature Granulocytes Absolute 0.17 #; Lymphocytes # 1.7 10*3/uL (1.4-4.0); Lymphocytes % 29.9 % (21.3-54.2); Mean Corpuscular HGB Conc 33.9 GM/DL (32-36); Mean Corpuscular Hemoglobin 29 PG (27-34); Mean Corpuscular Volume 86.5 FL (87-102); Monocytes # 0.6 10*3/uL (0.11-0.8); Monocytes % 10.4 % (1.7-12.7); Neutrophils % 53.6 % (38.7-73.9); Platelet Count 105 T/CUMM (130-400); Red Blood Count 3.62 MC/CUMM (3.8-5.5); Red Cell Distribution Width 16.4 % (9.3-17.3); White Blood Count 5.6 T/CUMM (4-12)
[2018-07-06] MEDS: SODIUM CHLORIDE 0.9% 1,000 ML IV SCH ×2 (06:02→08:42)
[2018-07-06] MEDS: LEVOTHYROXINE 50 MCG TABLET PO SCH (06:03)
[2018-07-06 06:05] LABS: Calcium 7.3 MG/DL (8.5-10.1); Osmolality,Calculated 276.3 MOS/KG (273-304); Potassium 3.2 MMOL/L (3.5-5.1)
[2018-07-06 07:07] LABS: Acanthocytes 2+; Ovalocytes Few; Platelet Estimate Adequate; Schistocytes Few
[2018-07-06] MEDS: DOCUSATE SODIUM 100 MG CAPSULE PO SCH ×2 (08:44→21:44)
[2018-07-06] MEDS: ASPIRIN CHEW 81 MG TABLET PO SCH (08:44)
[2018-07-06] MEDS: LORATADINE 10 MG TABLET PO SCH (08:44)
[2018-07-06] MEDS: ALLOPURINOL 100 MG TABLET PO SCH (08:44)
[2018-07-06] MEDS: FERROUS SULFATE 325 MG TABLET PO SCH ×2 (08:44→21:44)
[2018-07-06] MEDS: FUROSEMIDE 20 MG/2 ML VIAL IV SCH (08:44)
[2018-07-06] MEDS: PANTOPRAZOLE 40 MG TABLET PO SCH (08:44)
[2018-07-06] MEDS: CARVEDILOL 25 MG TABLET PO SCH ×2 (08:44→21:44)
[2018-07-06] MEDS: ATORVASTATIN 80 MG TABLET PO SCH (08:44)
[2018-07-06] MEDS: POTASSIUM CHLORIDE 20 MEQ/15 ML UDCUP PER TUBE PRN (08:45)
[2018-07-06] MEDS: TIMOLOL 0.5% OPH SOLN 5 ML BOTTLE BOTH EYES SCH (08:45)
[2018-07-06] MEDS: ENOXAPARIN 30 MG/0.3 ML SYRINGE SUBCUT SCH (13:39)
[2018-07-07] MEDS ORDERED: POTASSIUM CHLORIDE 20 MEQ TABLET PO ONE (00:11)
[2018-07-07] MEDS: SODIUM CHLORIDE 0.9% 1,000 ML IV SCH ×2 (00:39→17:28)
[2018-07-07] MEDS: VANCOMYCIN 50 MG/ML 60 ML/BOTTLE PO SCH ×4 (00:39→17:22)
[2018-07-07] MEDS: POTASSIUM CHLORIDE 20 MEQ TABLET PO PRN ×3 (03:23→07:52)
[2018-07-07] MEDS: LEVOTHYROXINE 50 MCG TABLET PO SCH ×2 (05:54→09:33)
[2018-07-07 06:33] LABS: Basophils % 0.6 % (0.0-0.8); Eosinophils # 0.2 10*3/uL (0.0-0.87); Eosinophils % 3.1 % (0.00-10.9); Hematocrit 33.2 VOL% (35.7-47.0); Hemoglobin 11.1 GM/DL (12.0-16.0); Immature Granulocytes % 1.9 %; Immature Granulocytes Absolute 0.12 #; Lymphocytes # 1.6 10*3/uL (1.4-4.0); Lymphocytes % 24.7 % (21.3-54.2); Mean Corpuscular HGB Conc 33.4 GM/DL (32-36); Mean Corpuscular Hemoglobin 29 PG (27-34); Mean Corpuscular Volume 86.5 FL (87-102); Monocytes # 0.8 10*3/uL (0.11-0.8); Monocytes % 11.6 % (1.7-12.7); Neutrophils # 3.8 10*3/uL (1.4-7.4); Neutrophils % 58.1 % (38.7-73.9); Platelet Count 204 T/CUMM (130-400); Red Blood Count 3.84 MC/CUMM (3.8-5.5); White Blood Count 6.5 T/CUMM (4-12)
[2018-07-07 06:53] LABS: Calcium 7.7 MG/DL (8.5-10.1); Potassium 3.8 MMOL/L (3.5-5.1)
[2018-07-07 07:04] LABS: Burr Cells Slight; Hypochromasia 1+; Ovalocytes Slight; Platelet Estimate Adequate
[2018-07-07] MEDS: FUROSEMIDE 20 MG/2 ML VIAL IV SCH (09:18)
[2018-07-07] MEDS: ALLOPURINOL 100 MG TABLET PO SCH (09:20)
[2018-07-07] MEDS: LORATADINE 10 MG TABLET PO SCH (09:21)
[2018-07-07] MEDS: FERROUS SULFATE 325 MG TABLET PO SCH ×2 (09:21→21:56)
[2018-07-07] MEDS: PANTOPRAZOLE 40 MG TABLET PO SCH (09:21)
[2018-07-07] MEDS: ATORVASTATIN 80 MG TABLET PO SCH (09:21)
[2018-07-07] MEDS: ASPIRIN CHEW 81 MG TABLET PO SCH (09:21)
[2018-07-07] MEDS: CARVEDILOL 25 MG TABLET PO SCH ×2 (09:22→21:57)
[2018-07-07] MEDS: ENOXAPARIN 30 MG/0.3 ML SYRINGE SUBCUT SCH (12:07)
[2018-07-07] MEDS: TIMOLOL 0.5% OPH SOLN 5 ML BOTTLE BOTH EYES SCH (12:12)
[2018-07-07] MEDS: DOCUSATE SODIUM 100 MG CAPSULE PO SCH ×2 (12:18→21:57)
[2018-07-08] MEDS: VANCOMYCIN 50 MG/ML 60 ML/BOTTLE PO SCH ×4 (00:26→20:47)
[2018-07-08] MEDS: LEVOTHYROXINE 50 MCG TABLET PO SCH (06:14)
[2018-07-08 06:41] LABS: Calcium 7.7 MG/DL (8.5-10.1); Osmolality,Calculated 283.7 MOS/KG (273-304); Potassium 3.9 MMOL/L (3.5-5.1)
[2018-07-08] MEDS: FERROUS SULFATE 325 MG TABLET PO SCH ×2 (08:52→20:50)
[2018-07-08] MEDS: PANTOPRAZOLE 40 MG TABLET PO SCH (08:52)
[2018-07-08] MEDS: FUROSEMIDE 20 MG/2 ML VIAL IV SCH (08:52)
[2018-07-08] MEDS: ALLOPURINOL 100 MG TABLET PO SCH (08:52)
[2018-07-08] MEDS: ATORVASTATIN 80 MG TABLET PO SCH (08:52)
[2018-07-08] MEDS: ASPIRIN CHEW 81 MG TABLET PO SCH (08:52)
[2018-07-08] MEDS: CARVEDILOL 25 MG TABLET PO SCH ×2 (08:52→20:50)
[2018-07-08] MEDS: DOCUSATE SODIUM 100 MG CAPSULE PO SCH ×2 (08:53→21:40)
[2018-07-08] MEDS: LORATADINE 10 MG TABLET PO SCH (08:53)
[2018-07-08] MEDS: SODIUM CHLORIDE 0.9% 1,000 ML IV SCH ×2 (08:54→21:40)
[2018-07-08] MEDS: BENZONATATE 100 MG CAPSULE PO PRN (08:58)
[2018-07-08] MEDS: ENOXAPARIN 30 MG/0.3 ML SYRINGE SUBCUT SCH (12:57)
[2018-07-08] MEDS: TIMOLOL 0.5% OPH SOLN 5 ML BOTTLE BOTH EYES SCH (12:57)
[2018-07-08] MEDS: APIXABAN 2.5 MG TABLET PO SCH (20:50)
[2018-07-09] MEDS: VANCOMYCIN 50 MG/ML 60 ML/BOTTLE PO SCH ×5 (00:59→23:59)
[2018-07-09 05:20] LABS: Calcium 7.8 MG/DL (8.5-10.1); Osmolality,Calculated 284.7 MOS/KG (273-304); Potassium 3.7 MMOL/L (3.5-5.1)
[2018-07-09] MEDS: LEVOTHYROXINE 50 MCG TABLET PO SCH (06:54)
[2018-07-09] MEDS: ALLOPURINOL 100 MG TABLET PO SCH (09:02)
[2018-07-09] MEDS: CARVEDILOL 25 MG TABLET PO SCH ×2 (09:02→21:05)
[2018-07-09] MEDS: FUROSEMIDE 20 MG/2 ML VIAL IV SCH (09:02)
[2018-07-09] MEDS: PANTOPRAZOLE 40 MG TABLET PO SCH (09:03)
[2018-07-09] MEDS: ASPIRIN CHEW 81 MG TABLET PO SCH (09:03)
[2018-07-09] MEDS: DOCUSATE SODIUM 100 MG CAPSULE PO SCH ×2 (09:03→21:05)
[2018-07-09] MEDS: ATORVASTATIN 80 MG TABLET PO SCH (09:03)
[2018-07-09] MEDS: LORATADINE 10 MG TABLET PO SCH (09:03)
[2018-07-09] MEDS: FERROUS SULFATE 325 MG TABLET PO SCH ×2 (09:03→21:06)
[2018-07-09] MEDS: APIXABAN 2.5 MG TABLET PO SCH ×2 (09:03→21:05)
[2018-07-09] MEDS: TIMOLOL 0.5% OPH SOLN 5 ML BOTTLE BOTH EYES SCH (09:04)
[2018-07-09] MEDS: BENZONATATE 100 MG CAPSULE PO PRN (09:11)
[2018-07-09] MEDS: SODIUM CHLORIDE 0.9% 1,000 ML IV SCH (13:35)
[2018-07-10] MEDS: VANCOMYCIN 50 MG/ML 60 ML/BOTTLE PO SCH ×3 (06:38→17:21)
[2018-07-10 07:19] LABS: Basophils # 0.1 10*3/uL (0.0-0.2); Basophils % 0.7 % (0.0-0.8); Eosinophils # 0.3 10*3/uL (0.0-0.87); Eosinophils % 3.6 % (0.00-10.9); Hematocrit 31.4 VOL% (35.7-47.0); Hemoglobin 10.2 GM/DL (12.0-16.0); Immature Granulocytes Absolute 0.07 #; Lymphocytes # 1.5 10*3/uL (1.4-4.0); Lymphocytes % 20.2 % (21.3-54.2); Mean Corpuscular HGB Conc 32.5 GM/DL (32-36); Mean Corpuscular Hemoglobin 29 PG (27-34); Mean Platelet Volume 13.6 FL (9.6-12.0); Monocytes # 0.8 10*3/uL (0.11-0.8); Monocytes % 10.2 % (1.7-12.7); Neutrophils # 4.7 10*3/uL (1.4-7.4); Neutrophils % 64.3 % (38.7-73.9); Platelet Count 204 T/CUMM (130-400); Red Blood Count 3.57 MC/CUMM (3.8-5.5); Red Cell Distribution Width 17.6 % (9.3-17.3); White Blood Count 7.3 T/CUMM (4-12)
[2018-07-10] MEDS: SODIUM CHLORIDE 0.9% 1,000 ML IV SCH (07:37)
[2018-07-10 07:39] LABS: Albumin 1.4 G/DL (3.4-5.0); Bilirubin,Total 0.6 MG/DL (0.2-1.0); Calcium 8.2 MG/DL (8.5-10.1); Osmolality,Calculated 284.7 MOS/KG (273-304); Potassium 3.4 MMOL/L (3.5-5.1); Total Protein 4.5 G/DL (6.4-8.3)
[2018-07-10] MEDS: PANTOPRAZOLE 40 MG TABLET PO SCH (09:06)
[2018-07-10] MEDS: CARVEDILOL 25 MG TABLET PO SCH ×2 (09:06→21:21)
[2018-07-10] MEDS: ASPIRIN CHEW 81 MG TABLET PO SCH (09:06)
[2018-07-10] MEDS: FERROUS SULFATE 325 MG TABLET PO SCH ×2 (09:06→21:22)
[2018-07-10] MEDS: LEVOTHYROXINE 50 MCG TABLET PO SCH (09:06)
[2018-07-10] MEDS: ALLOPURINOL 100 MG TABLET PO SCH (09:06)
[2018-07-10] MEDS: FUROSEMIDE 40 MG/4 ML VIAL IV SCH (09:06)
[2018-07-10] MEDS: ATORVASTATIN 80 MG TABLET PO SCH (09:06)
[2018-07-10] MEDS: APIXABAN 2.5 MG TABLET PO SCH ×2 (09:07→21:22)
[2018-07-10] MEDS: TIMOLOL 0.5% OPH SOLN 5 ML BOTTLE BOTH EYES SCH (09:07)
[2018-07-10] MEDS: BENZONATATE 100 MG CAPSULE PO PRN (09:10)
[2018-07-10] MEDS: DOCUSATE SODIUM 100 MG CAPSULE PO SCH ×2 (12:02→21:22)
[2018-07-10] MEDS: POTASSIUM CHLORIDE 20 MEQ TABLET PO PRN ×3 (12:37→17:21)
[2018-07-11] MEDS: VANCOMYCIN 50 MG/ML 60 ML/BOTTLE PO SCH ×4 (00:35→17:06)
[2018-07-11] MEDS: LEVOTHYROXINE 50 MCG TABLET PO SCH (06:32)
[2018-07-11 09:01] LABS: Calcium 8.1 MG/DL (8.5-10.1); Osmolality,Calculated 282.8 MOS/KG (273-304); Potassium 4.2 MMOL/L (3.5-5.1)
[2018-07-11] MEDS: ALLOPURINOL 100 MG TABLET PO SCH (09:47)
[2018-07-11] MEDS: ATORVASTATIN 80 MG TABLET PO SCH (09:47)
[2018-07-11] MEDS: DOCUSATE SODIUM 100 MG CAPSULE PO SCH ×2 (09:47→22:14)
[2018-07-11] MEDS: PANTOPRAZOLE 40 MG TABLET PO SCH (09:48)
[2018-07-11] MEDS: FERROUS SULFATE 325 MG TABLET PO SCH ×2 (09:48→22:15)
[2018-07-11] MEDS: TIMOLOL 0.5% OPH SOLN 5 ML BOTTLE BOTH EYES SCH (09:48)
[2018-07-11] MEDS: ASPIRIN CHEW 81 MG TABLET PO SCH (09:48)
[2018-07-11] MEDS: APIXABAN 2.5 MG TABLET PO SCH ×2 (09:48→22:15)
[2018-07-11] MEDS: FUROSEMIDE 40 MG/4 ML VIAL IV SCH (09:49)
[2018-07-11] MEDS: CARVEDILOL 25 MG TABLET PO SCH ×2 (09:52→22:15)
[2018-07-11] MEDS: BENZONATATE 100 MG CAPSULE PO PRN (09:54)
[2018-07-11] MEDS: LOSARTAN 25 MG TABLET PO SCH ×2 (09:54→22:15)
[2018-07-12] MEDS: VANCOMYCIN 50 MG/ML 60 ML/BOTTLE PO SCH ×4 (00:15→18:42)
[2018-07-12] MEDS: LEVOTHYROXINE 50 MCG TABLET PO SCH (06:44)
[2018-07-12] MEDS: FERROUS SULFATE 325 MG TABLET PO SCH ×2 (08:53→20:49)
[2018-07-12] MEDS: ATORVASTATIN 80 MG TABLET PO SCH (08:53)
[2018-07-12] MEDS: TIMOLOL 0.5% OPH SOLN 5 ML BOTTLE BOTH EYES SCH (08:54)
[2018-07-12] MEDS: LOSARTAN 25 MG TABLET PO SCH ×2 (08:54→20:49)
[2018-07-12] MEDS: BENZONATATE 100 MG CAPSULE PO PRN (08:54)
[2018-07-12] MEDS: APIXABAN 2.5 MG TABLET PO SCH ×2 (08:54→20:49)
[2018-07-12] MEDS: ASPIRIN CHEW 81 MG TABLET PO SCH (08:54)
[2018-07-12] MEDS: DOCUSATE SODIUM 100 MG CAPSULE PO SCH ×2 (08:54→20:49)
[2018-07-12] MEDS: CARVEDILOL 25 MG TABLET PO SCH ×2 (08:54→20:49)
[2018-07-12] MEDS: PANTOPRAZOLE 40 MG TABLET PO SCH (08:54)
[2018-07-12] MEDS: ALLOPURINOL 100 MG TABLET PO SCH (08:54)
[2018-07-12] MEDS: FUROSEMIDE 40 MG/4 ML VIAL IV SCH (08:55)
[2018-07-13] MEDS: VANCOMYCIN 50 MG/ML 60 ML/BOTTLE PO SCH ×4 (00:07→19:17)
[2018-07-13 05:07] LABS: Basophils % 0.6 % (0.0-0.8); Eosinophils # 0.2 10*3/uL (0.0-0.87); Eosinophils % 3.2 % (0.00-10.9); Hematocrit 28.7 VOL% (35.7-47.0); Hemoglobin 9.4 GM/DL (12.0-16.0); Immature Granulocytes % 0.6 %; Immature Granulocytes Absolute 0.04 #; Lymphocytes # 1.6 10*3/uL (1.4-4.0); Lymphocytes % 23.4 % (21.3-54.2); Mean Corpuscular HGB Conc 32.8 GM/DL (32-36); Mean Corpuscular Hemoglobin 29 PG (27-34); Mean Corpuscular Volume 87.5 FL (87-102); Mean Platelet Volume 13.7 FL (9.6-12.0); Monocytes # 0.5 10*3/uL (0.11-0.8); Monocytes % 7.6 % (1.7-12.7); Neutrophils # 4.4 10*3/uL (1.4-7.4); Neutrophils % 64.6 % (38.7-73.9); Platelet Count 179 T/CUMM (130-400); Red Blood Count 3.28 MC/CUMM (3.8-5.5); Red Cell Distribution Width 17.3 % (9.3-17.3); White Blood Count 6.8 T/CUMM (4-12)
[2018-07-13 05:18] LABS: Calcium 7.9 MG/DL (8.5-10.1); Osmolality,Calculated 282.8 MOS/KG (273-304); Potassium 3.1 MMOL/L (3.5-5.1)
[2018-07-13] MEDS: LEVOTHYROXINE 50 MCG TABLET PO SCH (07:12)
[2018-07-13] MEDS: FERROUS SULFATE 325 MG TABLET PO SCH ×2 (09:38→20:23)
[2018-07-13] MEDS: APIXABAN 2.5 MG TABLET PO SCH ×2 (09:38→20:23)
[2018-07-13] MEDS: CARVEDILOL 25 MG TABLET PO SCH ×2 (09:38→20:23)
[2018-07-13] MEDS: ALLOPURINOL 100 MG TABLET PO SCH (09:38)
[2018-07-13] MEDS: LOSARTAN 25 MG TABLET PO SCH ×2 (09:38→20:23)
[2018-07-13] MEDS: PANTOPRAZOLE 40 MG TABLET PO SCH (09:38)
[2018-07-13] MEDS: BENZONATATE 100 MG CAPSULE PO PRN (09:38)
[2018-07-13] MEDS: ASPIRIN CHEW 81 MG TABLET PO SCH (09:38)
[2018-07-13] MEDS: TIMOLOL 0.5% OPH SOLN 5 ML BOTTLE BOTH EYES SCH (09:39)
[2018-07-13] MEDS: POTASSIUM CHLORIDE 20 MEQ/15 ML UDCUP PER TUBE PRN ×4 (09:39→18:09)
[2018-07-13] MEDS: FUROSEMIDE 40 MG/4 ML VIAL IV SCH (09:40)
[2018-07-13] MEDS: DOCUSATE SODIUM 100 MG CAPSULE PO SCH ×2 (09:43→20:23)
[2018-07-13] MEDS: ATORVASTATIN 80 MG TABLET PO SCH (09:52)
[2018-07-14] MEDS: VANCOMYCIN 50 MG/ML 60 ML/BOTTLE PO SCH ×3 (01:04→11:08)
[2018-07-14] MEDS: LEVOTHYROXINE 50 MCG TABLET PO SCH (06:19)
[2018-07-14] MEDS: FERROUS SULFATE 325 MG TABLET PO SCH (08:23)
[2018-07-14] MEDS: ALLOPURINOL 100 MG TABLET PO SCH (08:23)
[2018-07-14] MEDS: PANTOPRAZOLE 40 MG TABLET PO SCH (08:23)
[2018-07-14] MEDS: CARVEDILOL 25 MG TABLET PO SCH (08:23)
[2018-07-14] MEDS: ASPIRIN CHEW 81 MG TABLET PO SCH (08:23)
[2018-07-14] MEDS: APIXABAN 2.5 MG TABLET PO SCH (08:23)
[2018-07-14] MEDS: ATORVASTATIN 80 MG TABLET PO SCH (08:23)
[2018-07-14] MEDS: LOSARTAN 25 MG TABLET PO SCH (08:23)
[2018-07-14] MEDS: TIMOLOL 0.5% OPH SOLN 5 ML BOTTLE BOTH EYES SCH (08:24)
[2018-07-14] MEDS: DOCUSATE SODIUM 100 MG CAPSULE PO SCH (08:24)
[2018-07-14 12:46] VITALS: BP 114/56
== END 2018-07-14 15:20 | disposition home or self-care (01) | DRG 371 ==
LOC: N.ED 05:11 → N.EDINP 09:02 → N.5E 09:50
PROVIDERS: ADMIT Family Medicine; ATTEND Family Medicine

== ENCOUNTER 2018-10-23 02:25 | Inpatient (IN) ==
[2018-10-23 03:35] LABS: Basophils % 0.5 % (0.0-0.8); Eosinophils # 0.2 10*3/uL (0.0-0.87); Eosinophils % 4.4 % (0.00-10.9); Hematocrit 26.6 VOL% (35.7-47.0); Hemoglobin 8.6 GM/DL (12.0-16.0); Immature Granulocytes % 0.3 %; Immature Granulocytes Absolute 0.01 #; Lymphocytes # 1.3 10*3/uL (1.4-4.0); Lymphocytes % 33.2 % (21.3-54.2); Mean Corpuscular HGB Conc 32.3 GM/DL (32-36); Mean Corpuscular Volume 86.6 FL (87-102); Neutrophils % 50.6 % (38.7-73.9); Red Blood Count 3.07 MC/CUMM (3.8-5.5); Red Cell Distribution Width 18.9 % (9.3-17.3); White Blood Count 3.8 T/CUMM (4-12)
[2018-10-23 03:39] LABS: Platelet Count 29 T/CUMM (130-400)
[2018-10-23 04:02] LABS: Albumin 2.5 G/DL (3.4-5.0); Bilirubin,Total 0.8 MG/DL (0.2-1.0); Osmolality,Calculated 286.8 MOS/KG (273-304); Total Protein 6.1 G/DL (6.4-8.3)
[2018-10-23] MEDS ORDERED: ONDANSETRON 4 MG/2 ML VIAL IV PRN (04:18)
[2018-10-23 04:24] LABS: Burr Cells 3+; Microcytosis 2+; Platelet Estimate Decreased; Schistocytes 2+
[2018-10-23 04:27] LABS: Hypochromasia 1+; Poikilocytosis 2+
[2018-10-23 04:28] LABS: Anisocytosis 2+
[2018-10-23] MEDS: DEXTROSE 5% NACL 0.9% 1,000 ML IV SCH ×3 (06:40→22:25)
[2018-10-23 13:31] LABS: % Iron Saturation 21.2 % (18-50); Ferritin 894.4 ng/ml (8-252); Haptoglobin < 8.0 MG/DL (30-200); Immunoglobulin A 314 MG/DL (70-400); Immunoglobulin G 1090 MG/DL (700-1600); Immunoglobulin M 117 MG/DL (40-230); Iron 28 UG/DL (50-170); Iron Binding Capacity 132 UG/DL (250-450)
[2018-10-23 13:42] LABS: Vitamin B12 309 PG/ML (211-911)
[2018-10-23] MEDS: PANTOPRAZOLE 40 MG TABLET PO SCH (13:42)
[2018-10-23] MEDS ORDERED: NITROGLYCERIN SL 0.4 MG TABLET SL PRN (14:04)
[2018-10-23] MEDS ORDERED: POTASSIUM CHLORIDE 20 MEQ TABLET PO ONE (14:05)
[2018-10-23] MEDS: CARVEDILOL 25 MG TABLET PO SCH (21:30)
[2018-10-23] MEDS: FERROUS SULFATE 325 MG TABLET PO SCH (21:30)
[2018-10-24 04:28] LABS: Basophils % 0.5 % (0.0-0.8); Eosinophils # 0.2 10*3/uL (0.0-0.87); Eosinophils % 5.1 % (0.00-10.9); Hematocrit 23.4 VOL% (35.7-47.0); Hemoglobin 7.5 GM/DL (12.0-16.0); Immature Granulocytes % 0.2 %; Immature Granulocytes Absolute 0.01 #; Lymphocytes # 1.3 10*3/uL (1.4-4.0); Lymphocytes % 30.3 % (21.3-54.2); Mean Corpuscular HGB Conc 32.1 GM/DL (32-36); Mean Corpuscular Volume 87.3 FL (87-102); Monocytes % 12.6 % (1.7-12.7); Neutrophils % 51.3 % (38.7-73.9); Platelet Count 44 T/CUMM (130-400); Red Blood Count 2.68 MC/CUMM (3.8-5.5); Red Cell Distribution Width 18.8 % (9.3-17.3); White Blood Count 4.1 T/CUMM (4-12)
[2018-10-24 05:07] LABS: Burr Cells Slight; Eosinophils 4 % (0-10); Hypochromasia 1+; Lymphocytes 34 % (20-55); Ovalocytes Slight; Platelet Estimate Decreased; Segmented Neutrophils 56 % (50-85); Total Cells Counted 100
[2018-10-24 05:08] LABS: Microcytosis Slight; Schistocytes Few
[2018-10-24] MEDS ORDERED: SODIUM PHOSPHATE ENEMA 133 ML BOTTLE RECTAL ONE ×2 (06:00→08:46)
[2018-10-24] MEDS: DEXTROSE 5% NACL 0.9% 1,000 ML IV SCH ×2 (06:25→21:50)
[2018-10-24] MEDS: LEVOTHYROXINE 75 MCG TABLET PO SCH (06:25)
[2018-10-24] MEDS ORDERED: SODIUM CHLORIDE 0.9% 1,000 ML IV PRN ×3 (08:55→14:27)
[2018-10-24] MEDS ORDERED: PROPOFOL 200 MG/20 ML VIAL IV ONE (09:00)
[2018-10-24] MEDS ORDERED: LACTATED RINGERS 1,000 ML IV SCH (09:00)
[2018-10-24] MEDS ORDERED: LIDOCAINE 2% 5 ML VIAL ONE (09:00)
[2018-10-24] MEDS ORDERED: PHENYLEPHRINE 1 MG/10 ML SYRINGE IV ONE (09:00)
[2018-10-24 09:16] LABS: INR 1.1; PT Patient Result 12.4 SECS
[2018-10-24 09:26] LABS: Calcium 8.3 MG/DL (8.5-10.1); Osmolality,Calculated 290.4 MOS/KG (273-304)
[2018-10-24] MEDS: CARVEDILOL 25 MG TABLET PO SCH ×2 (09:27→21:45)
[2018-10-24] MEDS: FERROUS SULFATE 325 MG TABLET PO SCH ×2 (10:02→21:45)
[2018-10-24] MEDS: PANTOPRAZOLE 40 MG TABLET PO SCH (10:03)
[2018-10-24] MEDS: ATORVASTATIN 80 MG TABLET PO SCH (10:03)
[2018-10-24 10:37] LABS: Immuno Free Light Chain Kappa 6.39 MG/DL (0.33-1.94); Immuno Free Light Chain Lambda 3.53 MG/DL (0.57-2.63); Immuno Free Light Chain Ratio 1.81 MG/DL (0.26-1.65)
[2018-10-24] MEDS ORDERED: traMADol 50 MG TABLET PO PRN (16:43)
[2018-10-24] MEDS ORDERED: ACETAMINOPHEN 325 MG TABLET PO PRN (16:43)
[2018-10-25 02:44] LABS: Hematocrit 30.8 VOL% (35.7-47.0)
[2018-10-25] MEDS: LEVOTHYROXINE 75 MCG TABLET PO SCH (06:24)
[2018-10-25 08:16] LABS: Basophils % 0.8 % (0.0-0.8); Eosinophils # 0.3 10*3/uL (0.0-0.87); Eosinophils % 5.5 % (0.00-10.9); Hematocrit 34.6 VOL% (35.7-47.0); Hemoglobin 11.3 GM/DL (12.0-16.0); Immature Granulocytes % 0.4 %; Immature Granulocytes Absolute 0.02 #; Lymphocytes # 1.6 10*3/uL (1.4-4.0); Lymphocytes % 29.4 % (21.3-54.2); Mean Corpuscular HGB Conc 32.7 GM/DL (32-36); Monocytes % 7.9 % (1.7-12.7); Platelet Count 50 T/CUMM (130-400); Red Blood Count 4.07 MC/CUMM (3.8-5.5); Red Cell Distribution Width 17.3 % (9.3-17.3); White Blood Count 5.3 T/CUMM (4-12)
[2018-10-25] MEDS: FERROUS SULFATE 325 MG TABLET PO SCH ×2 (09:53→20:31)
[2018-10-25] MEDS: ATORVASTATIN 80 MG TABLET PO SCH (09:53)
[2018-10-25] MEDS: PANTOPRAZOLE 40 MG TABLET PO SCH (09:53)
[2018-10-25] MEDS: CARVEDILOL 25 MG TABLET PO SCH ×2 (09:53→20:31)
[2018-10-25 10:12] LABS: Calcium 8.5 MG/DL (8.5-10.1); Osmolality,Calculated 285.7 MOS/KG (273-304)
[2018-10-25] MEDS ORDERED: FUROSEMIDE 40 MG/4 ML VIAL IV ONE (10:33)
[2018-10-25] MEDS ORDERED: POTASSIUM CHLORIDE 20 MEQ TABLET PO ONE (10:34)
[2018-10-25 12:54] LABS: Burr Cells 1+; Helmet Cells 1+
[2018-10-25 12:56] LABS: Anisocytosis 1+; Ovalocytes Few; Poikilocytosis 1+
[2018-10-25 12:57] LABS: Microcytosis 1+
[2018-10-25 12:58] LABS: Macrocytosis 2+
[2018-10-25 13:00] LABS: Target Cells Few
[2018-10-26 05:24] LABS: Basophils % 0.9 % (0.0-0.8); Eosinophils # 0.3 10*3/uL (0.0-0.87); Eosinophils % 5.6 % (0.00-10.9); Hematocrit 31.1 VOL% (35.7-47.0); Hemoglobin 10.2 GM/DL (12.0-16.0); Immature Granulocytes % 0.5 %; Immature Granulocytes Absolute 0.02 #; Lymphocytes # 1.4 10*3/uL (1.4-4.0); Lymphocytes % 32.2 % (21.3-54.2); Mean Corpuscular HGB Conc 32.8 GM/DL (32-36); Mean Corpuscular Volume 85.4 FL (87-102); Monocytes % 9.9 % (1.7-12.7); Neutrophils % 50.9 % (38.7-73.9); Red Blood Count 3.64 MC/CUMM (3.8-5.5); Red Cell Distribution Width 17.7 % (9.3-17.3); White Blood Count 4.4 T/CUMM (4-12)
[2018-10-26 05:48] LABS: Platelet Count 31 T/CUMM (130-400)
[2018-10-26] MEDS: LEVOTHYROXINE 75 MCG TABLET PO SCH (06:25)
[2018-10-26] MEDS: CARVEDILOL 25 MG TABLET PO SCH ×2 (08:49→20:47)
[2018-10-26] MEDS: FERROUS SULFATE 325 MG TABLET PO SCH ×2 (08:49→20:47)
[2018-10-26] MEDS: PANTOPRAZOLE 40 MG TABLET PO SCH (08:49)
[2018-10-26] MEDS: ATORVASTATIN 80 MG TABLET PO SCH (08:50)
[2018-10-26] MEDS: POTASSIUM CHLORIDE 20 MEQ TABLET PO SCH (08:50)
[2018-10-26] MEDS ORDERED: FUROSEMIDE 40 MG/4 ML VIAL IV ONE (09:29)
[2018-10-26 09:56] LABS: Osmolality,Calculated 284.7 MOS/KG (273-304)
[2018-10-27 03:26] LABS: Basophils % 0.4 % (0.0-0.8); Eosinophils # 0.2 10*3/uL (0.0-0.87); Eosinophils % 4.4 % (0.00-10.9); Hematocrit 28.6 VOL% (35.7-47.0); Hemoglobin 9.5 GM/DL (12.0-16.0); Immature Granulocytes % 0.2 %; Immature Granulocytes Absolute 0.01 #; Lymphocytes # 1.4 10*3/uL (1.4-4.0); Lymphocytes % 31.6 % (21.3-54.2); Mean Corpuscular HGB Conc 33.2 GM/DL (32-36); Mean Corpuscular Volume 84.1 FL (87-102); Monocytes % 9.6 % (1.7-12.7); Neutrophils % 53.8 % (38.7-73.9); Platelet Count 40 T/CUMM (130-400); Red Cell Distribution Width 17.5 % (9.3-17.3); White Blood Count 4.5 T/CUMM (4-12)
[2018-10-27 03:35] LABS: Calcium 8.6 MG/DL (8.5-10.1); Osmolality,Calculated 283.8 MOS/KG (273-304)
[2018-10-27 04:14] LABS: Eosinophils 1 % (0-10); Lymphocytes 38 % (20-55); Segmented Neutrophils 52 % (50-85); Total Cells Counted 100
[2018-10-27 04:18] LABS: Anisocytosis 2+
[2018-10-27 04:19] LABS: Acanthocytes 1+; Platelet Estimate Decreased
[2018-10-27] MEDS: LEVOTHYROXINE 75 MCG TABLET PO SCH (06:45)
[2018-10-27] MEDS: PANTOPRAZOLE 40 MG TABLET PO SCH (09:55)
[2018-10-27] MEDS: FERROUS SULFATE 325 MG TABLET PO SCH ×2 (09:55→20:49)
[2018-10-27] MEDS: CARVEDILOL 25 MG TABLET PO SCH ×2 (09:55→20:49)
[2018-10-27] MEDS: ATORVASTATIN 80 MG TABLET PO SCH (09:55)
[2018-10-27] MEDS: POTASSIUM CHLORIDE 20 MEQ TABLET PO SCH (09:55)
[2018-10-27] MEDS ORDERED: MAGNESIUM HYDROXIDE SUSP 30 ML UDCUP PO ONE (11:59)
[2018-10-27] MEDS ORDERED: MAGNESIUM HYDROXIDE SUSP 30 ML UDCUP PO PRN (11:59)
[2018-10-27] MEDS: DOCUSATE SODIUM 100 MG CAPSULE PO SCH (20:49)
[2018-10-28 04:35] LABS: Basophils % 0.7 % (0.0-0.8); Eosinophils # 0.1 10*3/uL (0.0-0.87); Eosinophils % 3.2 % (0.00-10.9); Hematocrit 29.4 VOL% (35.7-47.0); Hemoglobin 9.5 GM/DL (12.0-16.0); Immature Granulocytes % 0.2 %; Immature Granulocytes Absolute 0.01 #; Lymphocytes # 1.3 10*3/uL (1.4-4.0); Lymphocytes % 30.2 % (21.3-54.2); Mean Corpuscular HGB Conc 32.3 GM/DL (32-36); Monocytes % 10.4 % (1.7-12.7); Neutrophils % 55.3 % (38.7-73.9); Red Blood Count 3.42 MC/CUMM (3.8-5.5); Red Cell Distribution Width 17.2 % (9.3-17.3); White Blood Count 4.4 T/CUMM (4-12)
[2018-10-28 04:45] LABS: Platelet Count 25 T/CUMM (130-400)
[2018-10-28 05:02] LABS: Calcium 8.7 MG/DL (8.5-10.1); Osmolality,Calculated 280.1 MOS/KG (273-304)
[2018-10-28 05:14] LABS: Anisocytosis Slight
[2018-10-28 05:35] LABS: Microcytosis Slight; Ovalocytes Slight
[2018-10-28 05:36] LABS: Schistocytes Few
[2018-10-28 05:48] LABS: Platelet Estimate Decreased
[2018-10-28] MEDS: LEVOTHYROXINE 75 MCG TABLET PO SCH (06:21)
[2018-10-28] MEDS ORDERED: HEPARIN 5,000 UNIT/1 ML VIAL ONE (08:38)
[2018-10-28] MEDS: ATORVASTATIN 80 MG TABLET PO SCH (10:18)
[2018-10-28] MEDS: POTASSIUM CHLORIDE 20 MEQ TABLET PO SCH (10:18)
[2018-10-28] MEDS: FERROUS SULFATE 325 MG TABLET PO SCH ×2 (10:18→21:58)
[2018-10-28] MEDS: CARVEDILOL 25 MG TABLET PO SCH ×2 (10:18→22:00)
[2018-10-28] MEDS: DOCUSATE SODIUM 100 MG CAPSULE PO SCH ×2 (10:18→21:57)
[2018-10-28] MEDS: predniSONE 20 MG TABLET PO SCH (10:21)
[2018-10-29 05:02] LABS: Basophils % 0.2 % (0.0-0.8); Eosinophils % 0.2 % (0.00-10.9); Hematocrit 28.8 VOL% (35.7-47.0); Hemoglobin 9.3 GM/DL (12.0-16.0); Immature Granulocytes % 0.5 %; Immature Granulocytes Absolute 0.02 #; Lymphocytes # 0.8 10*3/uL (1.4-4.0); Lymphocytes % 19.8 % (21.3-54.2); Mean Corpuscular HGB Conc 32.3 GM/DL (32-36); Mean Corpuscular Volume 85.7 FL (87-102); Monocytes % 6.9 % (1.7-12.7); Neutrophils % 72.4 % (38.7-73.9); Platelet Count 80 T/CUMM (130-400); Red Blood Count 3.36 MC/CUMM (3.8-5.5); Red Cell Distribution Width 17.2 % (9.3-17.3); White Blood Count 4.1 T/CUMM (4-12)
[2018-10-29 05:31] LABS: Albumin 2.1 G/DL (3.4-5.0); Bilirubin,Total 0.7 MG/DL (0.2-1.0); Calcium 8.9 MG/DL (8.5-10.1); Total Protein 5.2 G/DL (6.4-8.3)
[2018-10-29] MEDS: LEVOTHYROXINE 75 MCG TABLET PO SCH (06:26)
[2018-10-29 06:39] LABS: Anisocytosis 1+; Burr Cells 1+; Elliptocytes Few; Hypochromasia 1+; Microcytosis 1+; Ovalocytes 1+; Schistocytes Few
[2018-10-29 06:40] LABS: Platelet Estimate Decreased
[2018-10-29 08:05] VITALS: BP 114/57
[2018-10-29] MEDS: DOCUSATE SODIUM 100 MG CAPSULE PO SCH (08:37)
[2018-10-29] MEDS: predniSONE 20 MG TABLET PO SCH (08:37)
[2018-10-29] MEDS: FERROUS SULFATE 325 MG TABLET PO SCH (08:37)
[2018-10-29] MEDS: POTASSIUM CHLORIDE 20 MEQ TABLET PO SCH (08:38)
[2018-10-29] MEDS: CARVEDILOL 25 MG TABLET PO SCH (08:38)
[2018-10-29] MEDS: ATORVASTATIN 80 MG TABLET PO SCH (08:38)
== END 2018-10-29 11:05 | disposition home health service (06) | DRG 378 ==
LOC: N.ED 02:25 → N.EDINP 02:25 → N.TELEN 04:48
PROVIDERS: ADMIT Family Medicine; ATTEND Family Medicine

== ENCOUNTER 2019-01-11 19:41 | Inpatient (IN) ==
[2019-01-11] MEDS ORDERED: SODIUM CHLORIDE 0.9% 1,000 ML IV STA (20:09)
[2019-01-11 20:13] LABS: Basophils % 0.6 % (0.0-0.8); Eosinophils # 0.2 10*3/uL (0.0-0.87); Eosinophils % 3.3 % (0.00-10.9); Hematocrit 25.7 VOL% (35.7-47.0); Hemoglobin 8.6 GM/DL (12.0-16.0); Immature Granulocytes % 0.4 %; Immature Granulocytes Absolute 0.02 #; Lymphocytes # 1.4 10*3/uL (1.4-4.0); Lymphocytes % 27.6 % (21.3-54.2); Mean Corpuscular HGB Conc 33.5 GM/DL (32-36); Mean Corpuscular Volume 86.5 FL (87-102); Monocytes % 11.4 % (1.7-12.7); Neutrophils % 56.7 % (38.7-73.9); Red Blood Count 2.97 MC/CUMM (3.8-5.5); Red Cell Distribution Width 18.4 % (9.3-17.3); White Blood Count 5.1 T/CUMM (4-12)
[2019-01-11 20:31] LABS: INR 1.1; PT Patient Result 12.1 SECS
[2019-01-11 20:32] LABS: Platelet Count 80 T/CUMM (130-400)
[2019-01-11 20:34] LABS: Anisocytosis 1+; Poikilocytosis 2+; Schistocytes 1+
[2019-01-11 20:35] LABS: Burr Cells 2+; Platelet Estimate Decreased
[2019-01-11 21:05] LABS: Alanine Aminotransferase 54 U/L (13-56); Albumin 2.2 G/DL (3.4-5.0); Alkaline Phosphatase 137 U/L (45-117); Aspartate Amino Transferase 125 U/L (0-37); Blood Urea Nitrogen 38 MG/DL (7-18); Calcium 8.3 MG/DL (8.5-10.1); Glucose 95 MG/DL (74-106); Osmolality,Calculated 289.3 MOS/KG (273-304); Total Protein 5.2 G/DL (6.4-8.3); Troponin I 0.035 NG/ML (0.00-0.045)
[2019-01-11] MEDS ORDERED: ACETAMINOPHEN 325 MG TABLET PO PRN (22:56)
[2019-01-11] MEDS ORDERED: ONDANSETRON 4 MG/2 ML VIAL IV PRN (22:56)
[2019-01-12 01:34] LABS: Apearance,Urine CLEAR (Clear); Bacteria,Urine Occasional /HPF (Few); Bilirubin,Urine Negative (Negative); Blood, Urine Moderate mg/dL (Negative); Glucose,Urine (UA) Negative (Negative); Ketones,Urine Negative (Negative); Mucus,Urine Occasional /LPF (Occasional); Nitrite,Urine Negative (Negative); Protein,Urine Negative; RBC,Urine 1 /HPF (0-4); Squamous Epithelial Cell,Urine Occasional /HPF (0-10); Urine Color Straw (Yellow); Urine Specific Gravity 1.003 (1.001-1.035); Urine Urobilinogen < 2.0 EU/DL (0.2-1.0); WBC,Urine 1 /HPF (0-6)
[2019-01-12] MEDS ORDERED: POTASSIUM CHLORIDE 20 MEQ TABLET PO ONE (01:41)
[2019-01-12] MEDS: ALBUMIN 25% 12.5 GM in PREMIX 1 EACH IV SCH ×3 (02:10→18:09)
[2019-01-12] MEDS: SODIUM CHLORIDE 0.45% 1,000 ML IV SCH ×2 (02:40→14:52)
[2019-01-12 05:14] LABS: Calcium 8.5 MG/DL (8.5-10.1); Osmolality,Calculated 295.8 MOS/KG (273-304)
[2019-01-12 06:35] LABS: Basophils % 0.7 % (0.0-0.8); Eosinophils # 0.2 10*3/uL (0.0-0.87); Hematocrit 24.7 VOL% (35.7-47.0); Hemoglobin 8.1 GM/DL (12.0-16.0); Immature Granulocytes % 0.3 %; Immature Granulocytes Absolute 0.02 #; Lymphocytes # 1.3 10*3/uL (1.4-4.0); Lymphocytes % 23.3 % (21.3-54.2); Mean Corpuscular HGB Conc 32.8 GM/DL (32-36); Monocytes % 9.4 % (1.7-12.7); Neutrophils % 63.3 % (38.7-73.9); Red Blood Count 2.84 MC/CUMM (3.8-5.5); Red Cell Distribution Width 18.1 % (9.3-17.3); White Blood Count 5.7 T/CUMM (4-12)
[2019-01-12 06:54] LABS: Platelet Count 21 T/CUMM (130-400)
[2019-01-12] MEDS ORDERED: POTASSIUM CHLORIDE 20 MEQ TABLET PO PRN (07:12)
[2019-01-12 09:57] LABS: Basophils % 0.5 % (0.0-0.8); Eosinophils # 0.2 10*3/uL (0.0-0.87); Eosinophils % 3.8 % (0.00-10.9); Hematocrit 25.4 VOL% (35.7-47.0); Hemoglobin 8.6 GM/DL (12.0-16.0); Immature Granulocytes % 0.5 %; Immature Granulocytes Absolute 0.03 #; Lymphocytes # 1.1 10*3/uL (1.4-4.0); Lymphocytes % 19.4 % (21.3-54.2); Mean Corpuscular HGB Conc 33.9 GM/DL (32-36); Mean Corpuscular Volume 86.4 FL (87-102); Monocytes % 8.8 % (1.7-12.7); Red Blood Count 2.94 MC/CUMM (3.8-5.5); Red Cell Distribution Width 18.6 % (9.3-17.3); White Blood Count 5.8 T/CUMM (4-12)
[2019-01-12] MEDS: DOCUSATE SODIUM 100 MG CAPSULE PO SCH ×3 (10:10→22:52)
[2019-01-12] MEDS: PANTOPRAZOLE 40 MG TABLET PO SCH ×2 (10:10→10:17)
[2019-01-12 10:11] LABS: Hypochromasia Slight; Platelet Count 57 T/CUMM (130-400); Platelet Estimate Decreased
[2019-01-12 10:12] LABS: Schistocytes 1+
[2019-01-13] MEDS: SODIUM CHLORIDE 0.45% 1,000 ML IV SCH ×2 (02:21→15:56)
[2019-01-13] MEDS: ALBUMIN 25% 12.5 GM in PREMIX 1 EACH IV SCH ×4 (02:21→19:17)
[2019-01-13] MEDS: SODIUM CHLORIDE 0.9% 75 ML IV SCH ×2 (02:23→02:24)
[2019-01-13 06:25] LABS: Basophils % 0.6 % (0.0-0.8); Eosinophils # 0.2 10*3/uL (0.0-0.87); Eosinophils % 4.8 % (0.00-10.9); Hematocrit 22.3 VOL% (35.7-47.0); Hemoglobin 7.3 GM/DL (12.0-16.0); Immature Granulocytes % 0.4 %; Immature Granulocytes Absolute 0.02 #; Lymphocytes # 1.3 10*3/uL (1.4-4.0); Lymphocytes % 27.1 % (21.3-54.2); Mean Corpuscular HGB Conc 32.7 GM/DL (32-36); Mean Corpuscular Volume 86.8 FL (87-102); Monocytes % 10.8 % (1.7-12.7); Neutrophils % 56.3 % (38.7-73.9); Red Blood Count 2.57 MC/CUMM (3.8-5.5); Red Cell Distribution Width 18.5 % (9.3-17.3); White Blood Count 4.6 T/CUMM (4-12)
[2019-01-13 06:34] LABS: Platelet Count 22 T/CUMM (130-400)
[2019-01-13 06:50] LABS: Hypochromasia Slight; Platelet Estimate Decreased; Schistocytes 1+
[2019-01-13 06:51] LABS: Acanthocytes Few
[2019-01-13 07:09] LABS: Calcium 8.5 MG/DL (8.5-10.1); Osmolality,Calculated 290.8 MOS/KG (273-304)
[2019-01-13] MEDS: PANTOPRAZOLE 40 MG TABLET PO SCH (09:25)
[2019-01-13] MEDS: DOCUSATE SODIUM 100 MG CAPSULE PO SCH ×2 (09:25→20:52)
[2019-01-13 10:51] LABS: Basophils % 0.4 % (0.0-0.8); Eosinophils # 0.2 10*3/uL (0.0-0.87); Eosinophils % 4.6 % (0.00-10.9); Hematocrit 22.3 VOL% (35.7-47.0); Hemoglobin 7.3 GM/DL (12.0-16.0); Immature Granulocytes % 0.2 %; Immature Granulocytes Absolute 0.01 #; Lymphocytes # 1.2 10*3/uL (1.4-4.0); Lymphocytes % 25.9 % (21.3-54.2); Mean Corpuscular HGB Conc 32.7 GM/DL (32-36); Mean Corpuscular Volume 87.8 FL (87-102); Monocytes % 10.5 % (1.7-12.7); Neutrophils % 58.4 % (38.7-73.9); Red Blood Count 2.54 MC/CUMM (3.8-5.5); Red Cell Distribution Width 18.5 % (9.3-17.3); White Blood Count 4.6 T/CUMM (4-12)
[2019-01-13 10:54] LABS: Platelet Count 22 T/CUMM (130-400)
[2019-01-13 10:58] LABS: Platelet Estimate Decreased
[2019-01-13 10:59] LABS: Acanthocytes Few; Hypochromasia Slight; Ovalocytes Slight; Schistocytes 1+
[2019-01-13] MEDS ORDERED: SODIUM CHLORIDE 0.9% 1,000 ML IV PRN (12:41)
[2019-01-13] MEDS ORDERED: FUROSEMIDE 20 MG/2 ML VIAL IV PRN (12:42)
[2019-01-13] MEDS: SODIUM CHLORIDE 0.9% 1,000 ML IV SCH ×2 (15:43→23:57)
[2019-01-14] MEDS: ALBUMIN 25% 12.5 GM in PREMIX 1 EACH IV SCH ×2 (02:15→09:56)
[2019-01-14 02:41] LABS: Basophils # 0.1 10*3/uL (0.0-0.2); Basophils % 0.7 % (0.0-0.8); Eosinophils # 0.3 10*3/uL (0.0-0.87); Eosinophils % 4.7 % (0.00-10.9); Hematocrit 31.5 VOL% (35.7-47.0); Immature Granulocytes % 0.3 %; Immature Granulocytes Absolute 0.02 #; Lymphocytes # 1.5 10*3/uL (1.4-4.0); Lymphocytes % 21.6 % (21.3-54.2); Mean Corpuscular HGB Conc 32.1 GM/DL (32-36); Mean Corpuscular Volume 87.3 FL (87-102); Neutrophils % 63.7 % (38.7-73.9); Red Cell Distribution Width 17.5 % (9.3-17.3); White Blood Count 6.8 T/CUMM (4-12)
[2019-01-14 02:45] LABS: Platelet Count 24 T/CUMM (130-400)
[2019-01-14 02:46] LABS: Hemoglobin 10.1 GM/DL (12.0-16.0); Red Blood Count 3.61 MC/CUMM (3.8-5.5)
[2019-01-14 06:30] LABS: Basophils # 0.1 10*3/uL (0.0-0.2); Eosinophils # 0.3 10*3/uL (0.0-0.87); Eosinophils % 4.9 % (0.00-10.9); Hematocrit 29.4 VOL% (35.7-47.0); Hemoglobin 9.9 GM/DL (12.0-16.0); Immature Granulocytes % 0.5 %; Immature Granulocytes Absolute 0.03 #; Lymphocytes # 1.4 10*3/uL (1.4-4.0); Lymphocytes % 21.7 % (21.3-54.2); Mean Corpuscular HGB Conc 33.7 GM/DL (32-36); Mean Corpuscular Volume 85.5 FL (87-102); Monocytes % 7.3 % (1.7-12.7); Neutrophils % 64.6 % (38.7-73.9); Red Blood Count 3.44 MC/CUMM (3.8-5.5); Red Cell Distribution Width 17.8 % (9.3-17.3); White Blood Count 6.3 T/CUMM (4-12)
[2019-01-14 06:47] LABS: Platelet Count 23 T/CUMM (130-400)
[2019-01-14 06:57] LABS: Hypochromasia 1+; Platelet Estimate Decreased
[2019-01-14 06:58] LABS: Elliptocytes Few; Schistocytes 1+
[2019-01-14] MEDS: PANTOPRAZOLE 40 MG TABLET PO SCH (09:44)
[2019-01-14] MEDS: DOCUSATE SODIUM 100 MG CAPSULE PO SCH (09:44)
[2019-01-14] MEDS: SODIUM CHLORIDE 0.9% 1,000 ML IV SCH (12:21)
[2019-01-14 16:06] VITALS: BP 127/60
== END 2019-01-14 17:19 | disposition home health service (06) | DRG 683 ==
LOC: EDBD → EDUNIT# → N.EDINP 19:41 → N.ED 19:41 → N.TELES 23:23
PROVIDERS: ADMIT Family Medicine; ATTEND Family Medicine

== ENCOUNTER 2019-08-02 15:45 | Observation (INO) ==
[2019-08-02 17:01] LABS: Basophils % 0.1 % (0.0-0.8); Hematocrit 26.8 VOL% (35.7-47.0); Hemoglobin 9.4 GM/DL (12.0-16.0); Immature Granulocytes % 0.7 %; Immature Granulocytes Absolute 0.06 #; Lymphocytes # 0.2 10*3/uL (1.4-4.0); Lymphocytes % 2.9 % (21.3-54.2); Mean Corpuscular HGB Conc 35.1 GM/DL (32-36); Mean Corpuscular Volume 85.6 FL (87-102); Neutrophils % 91.3 % (38.7-73.9); Platelet Count 44 T/CUMM (130-400); Red Blood Count 3.13 MC/CUMM (3.8-5.5); Red Cell Distribution Width 20.5 % (9.3-17.3); White Blood Count 8.3 T/CUMM (4-12)
[2019-08-02 17:27] LABS: Albumin 2.6 G/DL (3.4-5.0); Bilirubin,Total 0.8 MG/DL (0.2-1.0); Calcium 9.2 MG/DL (8.5-10.1); Total Protein 5.8 G/DL (6.4-8.3)
[2019-08-02 17:41] LABS: Acanthocytes 3+; Band Neutrophils 2 % (0-10); Lymphocytes 6 % (20-55); Platelet Estimate Decreased; Schistocytes 3+; Segmented Neutrophils 88 % (50-85); Total Cells Counted 100
[2019-08-02 17:47] LABS: Apearance,Urine Slightly Hazy (Clear); Bacteria,Urine Occasional /HPF (Few); Bilirubin,Urine Negative (Negative); Blood, Urine Moderate mg/dL (Negative); Glucose,Urine (UA) 150 mg/dL (Negative); Hyaline Casts,Urine 29 /LPF (0-3); Ketones,Urine Negative (Negative); Mucus,Urine Occasional /LPF (Occasional); Nitrite,Urine Negative (Negative); Protein,Urine 30 MG/DL; RBC,Urine 2 /HPF (0-4); Squamous Epithelial Cell,Urine Occasional /HPF (0-10); Urine Color Yellow (Yellow); Urine Specific Gravity 1.011 (1.001-1.035); Urine Urobilinogen < 2.0 EU/DL (0.2-1.0); WBC,Urine 4 /HPF (0-6)
[2019-08-02] MEDS ORDERED: INSULIN REGULAR 100 UNIT/ML SUBCUT STA (18:12)
[2019-08-02] MEDS ORDERED: SODIUM CHLORIDE 0.9% 1,000 ML IV STA (18:20)
[2019-08-02] MEDS ORDERED: diphenhydrAMINE CAP 25 MG CAPSULE PO PRN (20:42)
[2019-08-02] MEDS ORDERED: ONDANSETRON 4 MG/2 ML VIAL IV PRN (20:42)
[2019-08-02] MEDS ORDERED: hydrALAZINE 20 MG/1 ML VIAL IV PRN (20:42)
[2019-08-02] MEDS ORDERED: NICOTINE 21 MG/24 HR PATCH TRANSDERM PRN (20:42)
[2019-08-02] MEDS ORDERED: ALUMINUM/MAGNES/SIMETH MAX STR 30 ML UDCUP PO PRN (20:42)
[2019-08-02] MEDS ORDERED: ACETAMINOPHEN 325 MG TABLET PO PRN (20:42)
[2019-08-02] MEDS ORDERED: ALBUTEROL/IPRATROPIUM 3 ML NEB RESP TX PRN (20:42)
[2019-08-02] MEDS ORDERED: guaiFENesin/DM ER 600-30 MG TABLET PO PRN (20:42)
[2019-08-02] MEDS ORDERED: GLUCAGON 1 MG VIAL IM PRN (20:48)
[2019-08-02] MEDS ORDERED: DEXTROSE 50% 25 GM/50 ML SYRINGE IV PRN (20:48)
[2019-08-02] MEDS ORDERED: SODIUM CHLORIDE 0.9% 1,000 ML IV ONE (21:00)
[2019-08-02] MEDS ORDERED: cefTRIAXone 1,000 MG in SYRINGE 1 EACH IV SCH (21:00)
[2019-08-02] MEDS ORDERED: FUROSEMIDE 40 MG/4 ML VIAL IV ONE (21:03)
[2019-08-02] MEDS ORDERED: INSULIN REGULAR 100 UNIT/ML SUBCUT ONE (22:29)
[2019-08-02] MEDS ORDERED: DEXTROSE 10% 250 ML IV PRN (22:33)
[2019-08-03] MEDS ORDERED: NITROGLYCERIN SL 0.4 MG TABLET SL PRN (00:25)
[2019-08-03 05:58] LABS: Calcium 9.3 MG/DL (8.5-10.1); Osmolality,Calculated 309.5 MOS/KG (273-304)
[2019-08-03] MEDS ORDERED: INSULIN REGULAR 100 UNIT/ML SUBCUT SCH ×2 (06:00)
[2019-08-03] MEDS ORDERED: LEVOTHYROXINE 88 MCG TABLET PO SCH (06:00)
[2019-08-03 07:54] VITALS: BP 131/62
[2019-08-03] MEDS ORDERED: carvediloL 25 MG TABLET PO SCH (08:00)
[2019-08-03] MEDS ORDERED: FUROSEMIDE 40 MG/4 ML VIAL IV SCH (08:00)
[2019-08-03] MEDS ORDERED: PHENYLEPHRINE 0.25% SUPP RECTAL SCH (09:00)
[2019-08-03] MEDS ORDERED: predniSONE 20 MG TABLET PO SCH (09:00)
[2019-08-03] MEDS ORDERED: SACUBITRIL/VALSARTAN 49-51 MG TABLET PO SCH (09:00)
[2019-08-03] MEDS ORDERED: TIMOLOL 0.5% OPH SOLN 5 ML BOTTLE BOTH EYES SCH (09:00)
[2019-08-03] MEDS ORDERED: POTASSIUM CHLORIDE 20 MEQ TABLET PO ONE (09:00)
[2019-08-03] MEDS ORDERED: INSULIN GLARGINE 100 UNIT/ML SUBCUT SCH (09:00)
[2019-08-03] MEDS ORDERED: FERROUS SULFATE 325 MG TABLET PO SCH (09:00)
[2019-08-03] MEDS ORDERED: FLUTICASONE 50 MCG NASAL SPRAY 16 GM BOTTLE BOTH NARES SCH (09:00)
== END 2019-08-03 10:55 | disposition home or self-care (01) ==
LOC: N.EDINP 15:45 → N.ED 15:45 → N.EDINP 21:33 → N.2E 21:54
PROVIDERS: ADMIT Internal Medicine; ATTEND Internal Medicine

== ENCOUNTER 2019-08-06 09:00 | Observation (INO) ==
[2019-08-06] MEDS ORDERED: SODIUM CHLORIDE 0.9% 500 ML IV STA (10:00)
[2019-08-06] MEDS ORDERED: PANTOPRAZOLE 40 MG VIAL IV STA (10:00)
[2019-08-06 10:16] LABS: Basophils % 0.1 % (0.0-0.8); Eosinophils # 0.1 10*3/uL (0.0-0.87); Eosinophils % 0.6 % (0.00-10.9); Hematocrit 25.7 VOL% (35.7-47.0); Hemoglobin 8.7 GM/DL (12.0-16.0); Immature Granulocytes % 0.6 %; Immature Granulocytes Absolute 0.05 #; Lymphocytes # 0.5 10*3/uL (1.4-4.0); Mean Corpuscular HGB Conc 33.9 GM/DL (32-36); Mean Corpuscular Volume 85.4 FL (87-102); Monocytes % 3.8 % (1.7-12.7); Neutrophils % 88.9 % (38.7-73.9); Red Blood Count 3.01 MC/CUMM (3.8-5.5); Red Cell Distribution Width 20.6 % (9.3-17.3); White Blood Count 8.1 T/CUMM (4-12)
[2019-08-06 10:18] LABS: Calcium 8.9 MG/DL (8.5-10.1)
[2019-08-06 10:19] LABS: Albumin 2.2 G/DL (3.4-5.0)
[2019-08-06 10:23] LABS: INR 1.2; PT Patient Result 12.7 SECS (9.6-12.2); Partial Thromboplastin Time 25.2 SECS (20.8-36.0)
[2019-08-06 10:24] LABS: Platelet Count 33 T/CUMM (130-400)
[2019-08-06 10:35] LABS: Bilirubin,Total 0.66 MG/DL (0.2-1.0); Osmolality,Calculated 302.8 MOS/KG (273-304); Total Protein 5.4 G/DL (6.4-8.3)
[2019-08-06] MEDS ORDERED: NITROGLYCERIN SL 0.4 MG TABLET SL PRN (11:17)
[2019-08-06] MEDS ORDERED: FUROSEMIDE 40 MG/4 ML VIAL IV STA (11:18)
[2019-08-06] MEDS ORDERED: CALCIUM CARBONATE CHEW 500 MG TABLET PO PRN (11:19)
[2019-08-06] MEDS ORDERED: ACETAMINOPHEN 325 MG TABLET PO PRN (11:19)
[2019-08-06] MEDS ORDERED: diphenhydrAMINE CAP 25 MG CAPSULE PO PRN (11:19)
[2019-08-06] MEDS ORDERED: ALUMINUM/MAGNES/SIMETH MAX STR 30 ML UDCUP PO PRN (11:19)
[2019-08-06] MEDS ORDERED: ONDANSETRON 4 MG/2 ML VIAL IV PRN (11:19)
[2019-08-06] MEDS ORDERED: hydrALAZINE 20 MG/1 ML VIAL IV PRN (11:19)
[2019-08-06 11:49] LABS: Anisocytosis 1+; Hypochromasia 1+; Microcytosis 1+; Poikilocytosis 1+; Schistocytes Few
[2019-08-06 11:50] LABS: Acanthocytes 3+; Platelet Estimate Decreased; Target Cells Slight
[2019-08-06] MEDS ORDERED: DEXTROSE 50% 25 GM/50 ML VIAL IV PRN (13:32)
[2019-08-06] MEDS ORDERED: GLUCAGON 1 MG VIAL IM PRN (13:32)
[2019-08-06] MEDS: FUROSEMIDE 20 MG/2 ML VIAL IV SCH (16:54)
[2019-08-06] MEDS: INSULIN REGULAR 100 UNIT/ML SUBCUT SCH ×2 (17:33→21:22)
[2019-08-06 20:41] LABS: Hematocrit 26.9 VOL% (35.7-47.0); Hemoglobin 9.2 GM/DL (12.0-16.0)
[2019-08-06] MEDS: FERROUS SULFATE 325 MG TABLET PO SCH (21:22)
[2019-08-06] MEDS: carvediloL 25 MG TABLET PO SCH (21:22)
[2019-08-06] MEDS: SACUBITRIL/VALSARTAN 49-51 MG TABLET PO SCH (21:22)
[2019-08-07 05:35] LABS: Ferritin 1343.5 ng/ml (8-252)
[2019-08-07 05:41] LABS: Bilirubin,Total 0.9 MG/DL (0.2-1.0); Calcium 8.7 MG/DL (8.5-10.1); Osmolality,Calculated 298.3 MOS/KG (273-304); Thyroid Stimulating Hormone 6.94 uIU/ml (0.358-3.74)
[2019-08-07 05:43] LABS: Folate 11.9 NG/ML (5.4-24.0)
[2019-08-07] MEDS ORDERED: DEXTROSE 10% 250 ML BAG IV PRN (06:30)
[2019-08-07] MEDS ORDERED: LEVOTHYROXINE 88 MCG TABLET PO SCH (06:30)
[2019-08-07 07:52] LABS: Eosinophils # 0.2 10*3/uL (0.0-0.87); Eosinophils % 2.9 % (0.00-10.9); Hematocrit 26.7 VOL% (35.7-47.0); Hemoglobin 9.3 GM/DL (12.0-16.0); Immature Granulocytes % 0.7 %; Immature Granulocytes Absolute 0.04 #; Lymphocytes % 17.4 % (21.3-54.2); Mean Corpuscular HGB Conc 34.8 GM/DL (32-36); Monocytes % 6.1 % (1.7-12.7); Neutrophils % 72.9 % (38.7-73.9); Red Blood Count 3.18 MC/CUMM (3.8-5.5); Red Cell Distribution Width 20.5 % (9.3-17.3); White Blood Count 5.9 T/CUMM (4-12)
[2019-08-07 07:57] LABS: Platelet Count 37 T/CUMM (130-400)
[2019-08-07 08:23] LABS: Band Neutrophils 2 % (0-10); Eosinophils 2 % (0-10); Lymphocytes 18 % (20-55); Segmented Neutrophils 74 % (50-85)
[2019-08-07 08:24] LABS: Acanthocytes 3+; Anisocytosis 2+; Hypochromasia 2+; Macrocytosis 1+; Microcytosis 1+; Target Cells 1+; Total Cells Counted 100
[2019-08-07 08:26] LABS: Platelet Estimate Decreased
[2019-08-07 08:27] LABS: Elliptocytes Few
[2019-08-07] MEDS ORDERED: allopurinoL 300 MG TABLET PO SCH (09:00)
[2019-08-07] MEDS ORDERED: FLUTICASONE 50 MCG NASAL SPRAY 16 GM BOTTLE BOTH NARES SCH (09:00)
[2019-08-07] MEDS ORDERED: LORATADINE 10 MG TABLET PO SCH (09:00)
[2019-08-07] MEDS ORDERED: PANTOPRAZOLE 40 MG VIAL IV SCH (09:00)
[2019-08-07] MEDS ORDERED: ATORVASTATIN 80 MG TABLET PO SCH (09:00)
[2019-08-07] MEDS ORDERED: TIMOLOL 0.5% OPH SOLN 5 ML BOTTLE BOTH EYES SCH (09:00)
[2019-08-07] MEDS: INSULIN REGULAR 100 UNIT/ML SUBCUT SCH ×3 (09:58→18:08)
[2019-08-07] MEDS: SACUBITRIL/VALSARTAN 49-51 MG TABLET PO SCH (10:01)
[2019-08-07] MEDS: carvediloL 25 MG TABLET PO SCH (10:04)
[2019-08-07] MEDS: FERROUS SULFATE 325 MG TABLET PO SCH (10:04)
[2019-08-07] MEDS: FUROSEMIDE 20 MG/2 ML VIAL IV SCH ×2 (10:10→17:27)
[2019-08-07 16:39] LABS: Hematocrit 27.7 VOL% (35.7-47.0); Hemoglobin 9.4 GM/DL (12.0-16.0)
[2019-08-07 17:10] VITALS: BP 133/63
== END 2019-08-07 18:23 | disposition home health service (06) ==
LOC: N.ED 09:00 → N.EDINP 09:00 → N.2W 12:40
PROVIDERS: ADMIT Internal Medicine; ATTEND Internal Medicine

== ENCOUNTER 2019-09-05 17:16 | Inpatient (IN) ==
[2019-09-05] MEDS ORDERED: diphenhydrAMINE CAP 25 MG CAPSULE PO PRN (17:57)
[2019-09-05] MEDS ORDERED: hydrALAZINE 20 MG/1 ML VIAL IV PRN (17:57)
[2019-09-05] MEDS ORDERED: ALBUTEROL 2.5 MG/3 ML NEB RESP TX PRN (17:57)
[2019-09-05] MEDS ORDERED: ACETAMINOPHEN 325 MG TABLET PO PRN (17:57)
[2019-09-05] MEDS ORDERED: GLUCAGON 1 MG VIAL IM PRN (17:57)
[2019-09-05] MEDS ORDERED: DEXTROSE 50% 25 GM/50 ML VIAL IV PRN ×2 (17:57)
[2019-09-05] MEDS ORDERED: guaiFENesin/DM ER 600-30 MG TABLET PO PRN (17:57)
[2019-09-05] MEDS ORDERED: ONDANSETRON 4 MG/2 ML VIAL IV PRN (17:57)
[2019-09-05] MEDS ORDERED: NICOTINE 21 MG/24 HR PATCH TRANSDERM PRN (17:57)
[2019-09-05] MEDS ORDERED: DEXTROSE 5% NACL 0.9% 1,000 ML IV SCH (18:00)
[2019-09-05 20:34] LABS: Basophils % 0.4 % (0.0-0.8); Eosinophils % 0.9 % (0.00-10.9); Hematocrit 22.1 VOL% (35.7-47.0); Hemoglobin 7.1 GM/DL (12.0-16.0); Immature Granulocytes % 0.9 %; Immature Granulocytes Absolute 0.04 #; Lymphocytes # 1.3 10*3/uL (1.4-4.0); Lymphocytes % 26.9 % (21.3-54.2); Mean Corpuscular HGB Conc 32.1 GM/DL (32-36); Mean Corpuscular Volume 93.6 FL (87-102); Monocytes % 11.9 % (1.7-12.7); Red Blood Count 2.36 MC/CUMM (3.8-5.5); Red Cell Distribution Width 24.5 % (9.3-17.3); White Blood Count 4.6 T/CUMM (4-12)
[2019-09-05 20:38] LABS: Platelet Count 21 T/CUMM (130-400)
[2019-09-05] MEDS: DOCUSATE SODIUM 100 MG CAPSULE PO SCH (21:00)
[2019-09-05 21:05] LABS: Calcium 7.8 MG/DL (8.5-10.1); Osmolality,Calculated 286.5 MOS/KG (273-304)
[2019-09-05 21:09] LABS: Amorphous Crystals,Urine Occasional /HPF (Few); Apearance,Urine Slightly Hazy (Clear); Bacteria,Urine Occasional /HPF (Few); Bilirubin,Urine Negative (Negative); Blood, Urine Small mg/dL (Negative); Glucose,Urine (UA) Negative (Negative); Ketones,Urine Negative (Negative); Mucus,Urine Occasional /LPF (Occasional); Nitrite,Urine Negative (Negative); Protein,Urine 30 MG/DL; RBC,Urine 2 /HPF (0-4); Squamous Epithelial Cell,Urine Occasional /HPF (0-10); Urine Color Yellow (Yellow); Urine Urobilinogen < 2.0 EU/DL (0.2-1.0); WBC,Urine 1 /HPF (0-6)
[2019-09-05 21:19] LABS: Folate 15.5 NG/ML (5.4-24.0); Vitamin B12 484 PG/ML (211-911)
[2019-09-05 21:23] LABS: Anisocytosis 4+; Hypochromasia 4+; Microcytosis 2+
[2019-09-05 21:24] LABS: Acanthocytes 3+; Platelet Estimate Decreased; Schistocytes 1+
[2019-09-05 21:32] LABS: Sedimentation Rate-Westergren 29 MM/HR (0-30)
[2019-09-05] MEDS: DEXTROSE 10% 250 ML BAG IV PRN (23:00)
[2019-09-06] MEDS: GLUCAGON 1 MG VIAL IM PRN ×4 (01:42→11:50)
[2019-09-06] MEDS: DEXTROSE 10% 1,000 ML IV SCH ×2 (01:43→13:11)
[2019-09-06] MEDS: DEXTROSE 10% 250 ML BAG IV PRN ×2 (01:51→12:42)
[2019-09-06] MEDS ORDERED: AZITHROMYCIN INJ 500 MG in SODIUM CHLORIDE 0.9% 250 ML IV SCH (02:00)
[2019-09-06 02:37] LABS: Basophils % 0.6 % (0.0-0.8); Eosinophils % 0.9 % (0.00-10.9); Hematocrit 20.6 VOL% (35.7-47.0); Hemoglobin 6.7 GM/DL (12.0-16.0); Mean Corpuscular HGB Conc 32.5 GM/DL (32-36)
[2019-09-06 02:44] LABS: Immature Granulocytes % 0.9 %; Immature Granulocytes Absolute 0.03 #; Lymphocytes # 1.2 10*3/uL (1.4-4.0); Lymphocytes % 34.3 % (21.3-54.2); Mean Corpuscular Volume 92.4 FL (87-102); Monocytes % 7.4 % (1.7-12.7); Neutrophils % 55.9 % (38.7-73.9); Red Blood Count 2.23 MC/CUMM (3.8-5.5); Red Cell Distribution Width 23.9 % (9.3-17.3); White Blood Count 3.5 T/CUMM (4-12)
[2019-09-06 03:01] LABS: Albumin 2.1 G/DL (3.4-5.0); Bilirubin,Total 0.5 MG/DL (0.2-1.0); Calcium 7.5 MG/DL (8.5-10.1); Osmolality,Calculated 285.8 MOS/KG (273-304); Total Protein 4.7 G/DL (6.4-8.3)
[2019-09-06 03:08] LABS: Platelet Count 26 T/CUMM (130-400)
[2019-09-06 03:18] LABS: Platelet Estimate Decreased
[2019-09-06 03:19] LABS: Hypochromasia Slight; Polychromasia Few
[2019-09-06 03:20] LABS: Acanthocytes Few
[2019-09-06] MEDS: POTASSIUM CHLORIDE 20 MEQ TABLET PO SCH ×3 (04:52→20:06)
[2019-09-06] MEDS ORDERED: SODIUM CHLORIDE 0.9% 1,000 ML IV PRN (06:38)
[2019-09-06] MEDS ORDERED: FUROSEMIDE 40 MG/4 ML VIAL IV SCH (08:00)
[2019-09-06] MEDS: cefTRIAXone 1,000 MG in SYRINGE 1 EACH IV SCH (09:37)
[2019-09-06] MEDS: DOCUSATE SODIUM 100 MG CAPSULE PO SCH ×2 (09:38→20:06)
[2019-09-06] MEDS: FUROSEMIDE 40 MG/4 ML VIAL IV SCH (09:38)
[2019-09-06] MEDS: AZITHROMYCIN 250 MG TABLET PO SCH (09:38)
[2019-09-06] MEDS: PANTOPRAZOLE 40 MG TABLET PO SCH (09:39)
[2019-09-06] MEDS: HYDROCORTISONE 100 MG VIAL IV SCH ×2 (09:39→16:45)
[2019-09-06] MEDS: carvediloL 3.125 MG TABLET PO SCH ×2 (12:39→20:06)
[2019-09-06 15:10] LABS: Hematocrit 25.7 VOL% (35.7-47.0)
[2019-09-06 15:11] LABS: Hemoglobin 8.5 GM/DL (12.0-16.0)
[2019-09-06] MEDS: TIMOLOL 0.5% OPH SOLN 5 ML BOTTLE BOTH EYES SCH (16:45)
[2019-09-06] MEDS: LEVOTHYROXINE 88 MCG TABLET PO SCH (16:45)
[2019-09-07] MEDS: HYDROCORTISONE 100 MG VIAL IV SCH ×3 (02:38→17:50)
[2019-09-07 06:50] LABS: Basophils % 0.2 % (0.0-0.8); Hematocrit 23.7 VOL% (35.7-47.0); Hemoglobin 7.8 GM/DL (12.0-16.0); Immature Granulocytes % 0.6 %; Immature Granulocytes Absolute 0.04 #; Lymphocytes # 0.6 10*3/uL (1.4-4.0); Lymphocytes % 9.9 % (21.3-54.2); Mean Corpuscular HGB Conc 32.9 GM/DL (32-36); Mean Corpuscular Volume 89.1 FL (87-102); Monocytes % 2.4 % (1.7-12.7); Neutrophils % 86.9 % (38.7-73.9); Red Blood Count 2.66 MC/CUMM (3.8-5.5); Red Cell Distribution Width 21.9 % (9.3-17.3); White Blood Count 6.4 T/CUMM (4-12)
[2019-09-07 07:04] LABS: Calcium 7.8 MG/DL (8.5-10.1); Osmolality,Calculated 283.5 MOS/KG (273-304)
[2019-09-07 07:24] LABS: Platelet Count 28 T/CUMM (130-400)
[2019-09-07 07:35] LABS: Acanthocytes Few; Hypochromasia 1+; Platelet Estimate Decreased
[2019-09-07 08:51] LABS: Hemoglobin A1 (Alkaline) 97.2 % (96.5-98.5); Hemoglobin A2 (Alkaline) 2.8 % (1.5-3.5)
[2019-09-07] MEDS: FUROSEMIDE 40 MG/4 ML VIAL IV SCH (09:15)
[2019-09-07] MEDS: POTASSIUM CHLORIDE 20 MEQ TABLET PO SCH ×2 (09:15→20:44)
[2019-09-07] MEDS: PANTOPRAZOLE 40 MG TABLET PO SCH (09:15)
[2019-09-07] MEDS: cefTRIAXone 1,000 MG in SYRINGE 1 EACH IV SCH (09:15)
[2019-09-07] MEDS: TIMOLOL 0.5% OPH SOLN 5 ML BOTTLE BOTH EYES SCH (09:15)
[2019-09-07] MEDS: DOCUSATE SODIUM 100 MG CAPSULE PO SCH ×2 (09:15→20:44)
[2019-09-07] MEDS: AZITHROMYCIN 250 MG TABLET PO SCH (09:15)
[2019-09-07] MEDS: LEVOTHYROXINE 88 MCG TABLET PO SCH (09:15)
[2019-09-07] MEDS: carvediloL 3.125 MG TABLET PO SCH ×2 (09:15→20:44)
[2019-09-07] MEDS: DEXTROSE 10% 1,000 ML IV SCH ×2 (18:29→18:30)
[2019-09-08] MEDS: HYDROCORTISONE 100 MG VIAL IV SCH ×3 (00:26→21:56)
[2019-09-08] MEDS: AZITHROMYCIN 250 MG TABLET PO SCH (08:20)
[2019-09-08] MEDS: FUROSEMIDE 40 MG/4 ML VIAL IV SCH ×3 (08:20→21:58)
[2019-09-08] MEDS: cefTRIAXone 1,000 MG in SYRINGE 1 EACH IV SCH (08:20)
[2019-09-08] MEDS: POTASSIUM CHLORIDE 20 MEQ TABLET PO SCH (08:20)
[2019-09-08] MEDS: TIMOLOL 0.5% OPH SOLN 5 ML BOTTLE BOTH EYES SCH (08:20)
[2019-09-08] MEDS: ATORVASTATIN 80 MG TABLET PO SCH (08:20)
[2019-09-08] MEDS: LEVOTHYROXINE 88 MCG TABLET PO SCH (08:20)
[2019-09-08] MEDS ORDERED: carvediloL 3.125 MG TABLET PO SCH (09:07)
[2019-09-08] MEDS: DOCUSATE SODIUM 100 MG CAPSULE PO SCH ×2 (10:29→22:43)
[2019-09-08] MEDS: PANTOPRAZOLE 40 MG TABLET PO SCH (10:30)
[2019-09-08] MEDS: carvediloL 3.125 MG TABLET PO SCH (10:36)
[2019-09-08 11:22] LABS: Basophils % 0.2 % (0.0-0.8); Hematocrit 25.5 VOL% (35.7-47.0); Hemoglobin 8.3 GM/DL (12.0-16.0); Immature Granulocytes % 0.5 %; Immature Granulocytes Absolute 0.03 #; Lymphocytes # 0.6 10*3/uL (1.4-4.0); Lymphocytes % 9.7 % (21.3-54.2); Mean Corpuscular HGB Conc 32.5 GM/DL (32-36); Mean Corpuscular Volume 91.7 FL (87-102); Monocytes % 3.2 % (1.7-12.7); Neutrophils % 86.4 % (38.7-73.9); Red Blood Count 2.78 MC/CUMM (3.8-5.5); Red Cell Distribution Width 22.1 % (9.3-17.3); White Blood Count 5.9 T/CUMM (4-12)
[2019-09-08 11:27] LABS: Platelet Count 51 T/CUMM (130-400)
[2019-09-08 11:33] LABS: Calcium 8.7 MG/DL (8.5-10.1); Osmolality,Calculated 283.7 MOS/KG (273-304)
[2019-09-08 11:39] LABS: Ovalocytes Slight; Platelet Estimate Decreased
[2019-09-08 11:40] LABS: Acanthocytes Few
[2019-09-08 11:41] LABS: Hypochromasia 1+
[2019-09-08] MEDS: ALBUMIN 25% 12.5 GM in PREMIX 1 EACH IV SCH ×2 (14:00→21:58)
[2019-09-08 17:05] LABS: Hematocrit 26.2 VOL% (35.7-47.0); Hemoglobin 8.5 GM/DL (12.0-16.0); Immature Granulocytes % 0.5 %; Immature Granulocytes Absolute 0.03 #; Lymphocytes # 0.5 10*3/uL (1.4-4.0); Lymphocytes % 8.8 % (21.3-54.2); Mean Corpuscular HGB Conc 32.4 GM/DL (32-36); Mean Corpuscular Volume 93.2 FL (87-102); Monocytes % 4.7 % (1.7-12.7); Platelet Count 46 T/CUMM (130-400); Red Blood Count 2.81 MC/CUMM (3.8-5.5); White Blood Count 5.7 T/CUMM (4-12)
[2019-09-08 17:16] LABS: Calcium 8.8 MG/DL (8.5-10.1); Osmolality,Calculated 284.7 MOS/KG (273-304)
[2019-09-08] MEDS ORDERED: SODIUM POLYSTYRENE SULFATE 15 GM/60 ML BOTTLE PO ONE (17:50)
[2019-09-08] MEDS ORDERED: FUROSEMIDE 20 MG/2 ML VIAL ONE (20:30)
[2019-09-08] MEDS: METOPROLOL SUCCINATE XL 25 MG TABLET PO SCH (21:58)
[2019-09-09] MEDS ORDERED: FUROSEMIDE 40 MG TABLET PO ONE (00:27)
[2019-09-09] MEDS: ALBUMIN 25% 12.5 GM in PREMIX 1 EACH IV SCH ×3 (07:57→20:24)
[2019-09-09] MEDS: cefTRIAXone 1,000 MG in SYRINGE 1 EACH IV SCH (11:21)
[2019-09-09] MEDS: DOCUSATE SODIUM 100 MG CAPSULE PO SCH ×3 (11:24→22:43)
[2019-09-09] MEDS: FUROSEMIDE 40 MG/4 ML VIAL IV SCH ×2 (11:24→20:24)
[2019-09-09] MEDS: ATORVASTATIN 80 MG TABLET PO SCH (11:25)
[2019-09-09] MEDS: PANTOPRAZOLE 40 MG TABLET PO SCH (11:25)
[2019-09-09] MEDS: HYDROCORTISONE 100 MG VIAL IV SCH (11:25)
[2019-09-09] MEDS: AZITHROMYCIN 250 MG TABLET PO SCH (11:26)
[2019-09-09] MEDS: TIMOLOL 0.5% OPH SOLN 5 ML BOTTLE BOTH EYES SCH (11:26)
[2019-09-09] MEDS: LEVOTHYROXINE 88 MCG TABLET PO SCH (11:26)
[2019-09-09] MEDS: METOPROLOL SUCCINATE XL 25 MG TABLET PO SCH ×2 (11:42→20:25)
[2019-09-09 12:15] LABS: Calcium 8.8 MG/DL (8.5-10.1); Osmolality,Calculated 292.2 MOS/KG (273-304)
[2019-09-09] MEDS ORDERED: SODIUM POLYSTYRENE SULFATE 15 GM/60 ML BOTTLE PO ONE (14:00)
[2019-09-09] MEDS: hydrALAZINE 10 MG TABLET PO SCH ×2 (16:18→20:24)
[2019-09-09] MEDS: ISOSORBIDE DINITRATE 20 MG TABLET PO SCH ×2 (16:18→20:24)
[2019-09-09 16:49] LABS: Hematocrit 23.2 VOL% (35.7-47.0); Hemoglobin 7.7 GM/DL (12.0-16.0); Immature Granulocytes % 0.5 %; Immature Granulocytes Absolute 0.04 #; Lymphocytes # 0.4 10*3/uL (1.4-4.0); Lymphocytes % 4.6 % (21.3-54.2); Mean Corpuscular HGB Conc 33.2 GM/DL (32-36); Mean Corpuscular Volume 89.9 FL (87-102); Monocytes % 6.4 % (1.7-12.7); Neutrophils % 88.5 % (38.7-73.9); Platelet Count 113 T/CUMM (130-400); Red Blood Count 2.58 MC/CUMM (3.8-5.5); White Blood Count 7.8 T/CUMM (4-12)
[2019-09-09 17:42] LABS: Band Neutrophils 1 % (0-10); Lymphocytes 4 % (20-55); Platelet Estimate Adequate; Segmented Neutrophils 95 % (50-85); Total Cells Counted 100
[2019-09-09 17:43] LABS: Acanthocytes Few; Hypochromasia Slight; Ovalocytes Slight
[2019-09-10] MEDS: ALBUMIN 25% 12.5 GM in PREMIX 1 EACH IV SCH ×3 (04:32→21:05)
[2019-09-10 06:23] LABS: Calcium 8.5 MG/DL (8.5-10.1); Osmolality,Calculated 304.3 MOS/KG (273-304)
[2019-09-10] MEDS: cefTRIAXone 1,000 MG in SYRINGE 1 EACH IV SCH (09:34)
[2019-09-10] MEDS: ATORVASTATIN 80 MG TABLET PO SCH (09:38)
[2019-09-10] MEDS: ISOSORBIDE DINITRATE 20 MG TABLET PO SCH ×3 (09:38→21:05)
[2019-09-10] MEDS: LEVOTHYROXINE 88 MCG TABLET PO SCH (09:40)
[2019-09-10] MEDS: FUROSEMIDE 40 MG/4 ML VIAL IV SCH ×2 (09:40→21:05)
[2019-09-10] MEDS: TIMOLOL 0.5% OPH SOLN 5 ML BOTTLE BOTH EYES SCH (09:41)
[2019-09-10] MEDS: METOPROLOL SUCCINATE XL 25 MG TABLET PO SCH ×2 (09:41→21:05)
[2019-09-10] MEDS: DOCUSATE SODIUM 100 MG CAPSULE PO SCH (09:41)
[2019-09-10] MEDS: hydrALAZINE 10 MG TABLET PO SCH (09:41)
[2019-09-10] MEDS: PANTOPRAZOLE 40 MG TABLET PO SCH (09:41)
[2019-09-10 10:36] LABS: Hematocrit 23.1 VOL% (35.7-47.0); Hemoglobin 7.4 GM/DL (12.0-16.0); Immature Granulocytes % 0.4 %; Immature Granulocytes Absolute 0.03 #; Lymphocytes # 0.5 10*3/uL (1.4-4.0); Lymphocytes % 6.5 % (21.3-54.2); Mean Corpuscular Volume 92.8 FL (87-102); Monocytes % 7.4 % (1.7-12.7); Neutrophils % 85.7 % (38.7-73.9); Platelet Count 116 T/CUMM (130-400); Red Blood Count 2.49 MC/CUMM (3.8-5.5); White Blood Count 7.3 T/CUMM (4-12)
[2019-09-10 10:57] LABS: Anisocytosis 2+; Platelet Estimate Adequate
[2019-09-10 10:58] LABS: Acanthocytes 1+; Burr Cells 1+
[2019-09-10 11:00] LABS: Misc Morphology 23; Poikilocytosis 3+
[2019-09-10] MEDS ORDERED: SODIUM CHLORIDE 0.9% 1,000 ML IV PRN (12:18)
[2019-09-10] MEDS: AZITHROMYCIN 250 MG TABLET PO SCH (13:22)
[2019-09-10] MEDS: hydrALAZINE 25 MG TABLET PO SCH ×2 (15:51→21:05)
[2019-09-11] MEDS: ALBUMIN 25% 12.5 GM in PREMIX 1 EACH IV SCH (03:40)
[2019-09-11 04:49] LABS: Basophils % 0.1 % (0.0-0.8); Eosinophils # 0.1 10*3/uL (0.0-0.87); Eosinophils % 1.9 % (0.00-10.9); Hemoglobin 8.9 GM/DL (12.0-16.0); Immature Granulocytes Absolute 0.07 #; Lymphocytes # 0.9 10*3/uL (1.4-4.0); Lymphocytes % 12.7 % (21.3-54.2); Mean Corpuscular Volume 90.9 FL (87-102); Monocytes % 7.4 % (1.7-12.7); Neutrophils % 76.9 % (38.7-73.9); Platelet Count 49 T/CUMM (130-400); Red Blood Count 2.97 MC/CUMM (3.8-5.5); Red Cell Distribution Width 19.4 % (9.3-17.3)
[2019-09-11 04:59] LABS: Calcium 8.6 MG/DL (8.5-10.1); Osmolality,Calculated 303.1 MOS/KG (273-304)
[2019-09-11 05:28] LABS: Hypochromasia Slight
[2019-09-11 05:29] LABS: Acanthocytes 1+; Anisocytosis 1+
[2019-09-11 05:31] LABS: Platelet Estimate Decreased
[2019-09-11] MEDS: POTASSIUM CHLORIDE 20 MEQ TABLET PO PRN ×4 (06:15→17:42)
[2019-09-11] MEDS: hydrALAZINE 25 MG TABLET PO SCH ×3 (10:36→20:45)
[2019-09-11] MEDS: ISOSORBIDE DINITRATE 20 MG TABLET PO SCH ×3 (10:36→20:45)
[2019-09-11] MEDS: TORSEMIDE 20 MG TABLET PO SCH (10:36)
[2019-09-11] MEDS: POTASSIUM CHLORIDE 20 MEQ TABLET PO SCH (10:36)
[2019-09-11] MEDS: LEVOTHYROXINE 88 MCG TABLET PO SCH (10:37)
[2019-09-11] MEDS: TIMOLOL 0.5% OPH SOLN 5 ML BOTTLE BOTH EYES SCH (10:37)
[2019-09-11] MEDS: ATORVASTATIN 80 MG TABLET PO SCH (10:37)
[2019-09-11] MEDS: METOPROLOL SUCCINATE XL 25 MG TABLET PO SCH ×2 (10:37→20:45)
[2019-09-11] MEDS: cefTRIAXone 1,000 MG in SYRINGE 1 EACH IV SCH (10:38)
[2019-09-11] MEDS: AZITHROMYCIN 250 MG TABLET PO SCH (15:57)
[2019-09-12 05:55] LABS: Basophils % 0.1 % (0.0-0.8); Eosinophils # 0.1 10*3/uL (0.0-0.87); Eosinophils % 1.7 % (0.00-10.9); Hematocrit 28.7 VOL% (35.7-47.0); Hemoglobin 9.5 GM/DL (12.0-16.0); Immature Granulocytes Absolute 0.07 #; Lymphocytes # 0.9 10*3/uL (1.4-4.0); Lymphocytes % 11.9 % (21.3-54.2); Mean Corpuscular HGB Conc 33.1 GM/DL (32-36); Mean Corpuscular Volume 89.4 FL (87-102); Monocytes % 5.9 % (1.7-12.7); Neutrophils % 79.4 % (38.7-73.9); Platelet Count 49 T/CUMM (130-400); Red Blood Count 3.21 MC/CUMM (3.8-5.5); Red Cell Distribution Width 19.4 % (9.3-17.3); White Blood Count 7.2 T/CUMM (4-12)
[2019-09-12 06:12] LABS: Calcium 8.9 MG/DL (8.5-10.1); Osmolality,Calculated 301.1 MOS/KG (273-304)
[2019-09-12] MEDS ORDERED: hydrALAZINE 25 MG TABLET PO SCH (09:00)
[2019-09-12] MEDS: LEVOTHYROXINE 88 MCG TABLET PO SCH (10:25)
[2019-09-12] MEDS: TIMOLOL 0.5% OPH SOLN 5 ML BOTTLE BOTH EYES SCH (10:26)
[2019-09-12] MEDS: ATORVASTATIN 80 MG TABLET PO SCH (10:26)
[2019-09-12] MEDS: METOPROLOL SUCCINATE XL 25 MG TABLET PO SCH (10:26)
[2019-09-12] MEDS: TORSEMIDE 20 MG TABLET PO SCH (10:26)
[2019-09-12] MEDS: ISOSORBIDE DINITRATE 20 MG TABLET PO SCH (10:26)
[2019-09-12] MEDS: cefTRIAXone 1,000 MG in SYRINGE 1 EACH IV SCH (10:26)
[2019-09-12] MEDS: POTASSIUM CHLORIDE 20 MEQ TABLET PO SCH (10:27)
[2019-09-12 14:53] VITALS: BP 137/78
[2019-09-12 22:06] LABS: CDT Result Positive (Negative); CDT Specimen Source STOOL
== END 2019-09-12 13:32 | disposition home or self-care (01) | DRG 637 ==
LOC: N.ED 17:16 → SUATTDRO 17:57 → N.EDINP 17:57 → N.2E 09-06 15:45
PROVIDERS: ADMIT Internal Medicine; ATTEND Family Medicine

== ENCOUNTER 2019-09-24 08:32 | Inpatient (IN) ==
[2019-09-24] MEDS ORDERED: FUROSEMIDE 100 MG/10 ML VIAL IV STA (09:47)
[2019-09-24 09:59] LABS: Basophils % 0.5 % (0.0-0.8); Eosinophils % 0.2 % (0.00-10.9); Hematocrit 34.3 VOL% (35.7-47.0); Hemoglobin 11.2 GM/DL (12.0-16.0); Immature Granulocytes % 1.8 %; Immature Granulocytes Absolute 0.15 #; Lymphocytes # 0.9 10*3/uL (1.4-4.0); Lymphocytes % 10.3 % (21.3-54.2); Mean Corpuscular HGB Conc 32.7 GM/DL (32-36); Mean Corpuscular Volume 92.2 FL (87-102); Monocytes % 7.2 % (1.7-12.7); Red Blood Count 3.72 MC/CUMM (3.8-5.5); White Blood Count 8.6 T/CUMM (4-12)
[2019-09-24 10:00] LABS: Platelet Count 78 T/CUMM (130-400)
[2019-09-24 10:18] LABS: Albumin 3.1 G/DL (3.4-5.0); Calcium 9.5 MG/DL (8.5-10.1); Osmolality,Calculated 287.7 MOS/KG (273-304); Total Protein 6.5 G/DL (6.4-8.3)
[2019-09-24 10:51] LABS: Hypochromasia 1+; Ovalocytes Slight; Platelet Estimate Decreased
[2019-09-24 10:52] LABS: Acanthocytes Few
[2019-09-24] MEDS ORDERED: GLUCAGON 1 MG VIAL IM PRN (11:50)
[2019-09-24] MEDS ORDERED: ONDANSETRON 4 MG/2 ML VIAL IV PRN (11:50)
[2019-09-24] MEDS ORDERED: ALBUTEROL 2.5 MG/3 ML NEB RESP TX PRN (11:50)
[2019-09-24] MEDS ORDERED: hydrALAZINE 20 MG/1 ML VIAL IV PRN (11:50)
[2019-09-24] MEDS ORDERED: DEXTROSE 10% 250 ML BAG IV PRN (11:50)
[2019-09-24] MEDS ORDERED: ACETAMINOPHEN 325 MG TABLET PO PRN (11:50)
[2019-09-24] MEDS ORDERED: guaiFENesin/DM ER 600-30 MG TABLET PO PRN (11:50)
[2019-09-24] MEDS: FUROSEMIDE 40 MG/4 ML VIAL IV SCH (16:21)
[2019-09-24] MEDS: INSULIN LISPRO 100 UNIT/ML SUBCUT SCH ×2 (16:44→22:00)
[2019-09-25 06:17] LABS: Basophils % 0.7 % (0.0-0.8); Eosinophils # 0.1 10*3/uL (0.0-0.87); Eosinophils % 1.5 % (0.00-10.9); Hematocrit 30.3 VOL% (35.7-47.0); Hemoglobin 9.7 GM/DL (12.0-16.0); Immature Granulocytes % 0.5 %; Immature Granulocytes Absolute 0.03 #; Lymphocytes # 1.4 10*3/uL (1.4-4.0); Mean Corpuscular Volume 94.1 FL (87-102); Neutrophils % 66.3 % (38.7-73.9); Platelet Count 43 T/CUMM (130-400); Red Blood Count 3.22 MC/CUMM (3.8-5.5); Red Cell Distribution Width 18.6 % (9.3-17.3); White Blood Count 6.1 T/CUMM (4-12)
[2019-09-25 06:29] LABS: Calcium 8.8 MG/DL (8.5-10.1); Osmolality,Calculated 289.5 MOS/KG (273-304)
[2019-09-25 06:32] LABS: Acanthocytes 2+; Anisocytosis 1+
[2019-09-25 06:35] LABS: Platelet Estimate Decreased
[2019-09-25] MEDS: INSULIN LISPRO 100 UNIT/ML SUBCUT SCH ×4 (09:30→22:45)
[2019-09-25] MEDS: FUROSEMIDE 40 MG/4 ML VIAL IV SCH (09:45)
[2019-09-25] MEDS: LEVOTHYROXINE 88 MCG TABLET PO SCH (09:45)
[2019-09-25] MEDS: TIMOLOL 0.5% OPH SOLN 5 ML BOTTLE BOTH EYES SCH (09:46)
[2019-09-25] MEDS: FLUTICASONE 50 MCG NASAL SPRAY 16 GM BOTTLE BOTH NARES SCH (09:46)
[2019-09-25] MEDS ORDERED: VANCOMYCIN 50 MG/ML 60 ML/BOTTLE PO SCH (12:00)
[2019-09-25 15:13] LABS: Apearance,Urine Slightly Hazy (Clear); Bacteria,Urine Occasional /HPF (Few); Bilirubin,Urine Negative (Negative); Blood, Urine Small mg/dL (Negative); Glucose,Urine (UA) Negative (Negative); Hyaline Casts,Urine 25 /LPF (0-3); Ketones,Urine Negative (Negative); Mucus,Urine Occasional /LPF (Occasional); Nitrite,Urine Negative (Negative); Protein,Urine 100 MG/DL; RBC,Urine 4 /HPF (0-4); Squamous Epithelial Cell,Urine Occasional /HPF (0-10); Urine Color Yellow (Yellow); Urine Specific Gravity 1.009 (1.001-1.035); Urine Urobilinogen < 2.0 EU/DL (0.2-1.0); WBC,Urine 2 /HPF (0-6)
[2019-09-26 06:28] LABS: Basophils % 0.7 % (0.0-0.8); Eosinophils # 0.1 10*3/uL (0.0-0.87); Eosinophils % 1.5 % (0.00-10.9); Hematocrit 31.1 VOL% (35.7-47.0); Hemoglobin 10.1 GM/DL (12.0-16.0); Immature Granulocytes % 0.7 %; Immature Granulocytes Absolute 0.04 #; Lymphocytes # 1.4 10*3/uL (1.4-4.0); Lymphocytes % 23.7 % (21.3-54.2); Mean Corpuscular HGB Conc 32.5 GM/DL (32-36); Mean Corpuscular Volume 95.1 FL (87-102); Monocytes % 8.9 % (1.7-12.7); Neutrophils % 64.5 % (38.7-73.9); Platelet Count 79 T/CUMM (130-400); Red Blood Count 3.27 MC/CUMM (3.8-5.5); Red Cell Distribution Width 18.7 % (9.3-17.3); White Blood Count 5.9 T/CUMM (4-12)
[2019-09-26] MEDS: LEVOTHYROXINE 88 MCG TABLET PO SCH (06:32)
[2019-09-26 07:10] LABS: Burr Cells Few; Eosinophils 1 % (0-10); Lymphocytes 14 % (20-55); Nucleated Red Blood Cells 1 (0-5); Schistocytes Few; Segmented Neutrophils 80 % (50-85); Total Cells Counted 100
[2019-09-26 07:11] LABS: Acanthocytes Few; Platelet Estimate Decreased; Poikilocytosis 2+
[2019-09-26 07:15] LABS: Calcium 8.6 MG/DL (8.5-10.1); Osmolality,Calculated 293.4 MOS/KG (273-304)
[2019-09-26 07:18] LABS: Albumin 2.6 G/DL (3.4-5.0); Bilirubin,Total 0.9 MG/DL (0.2-1.0); Calcium 8.6 MG/DL (8.5-10.1); Osmolality,Calculated 293.4 MOS/KG (273-304); Total Protein 5.4 G/DL (6.4-8.3)
[2019-09-26 08:14] VITALS: BP 104/64
[2019-09-26] MEDS: INSULIN LISPRO 100 UNIT/ML SUBCUT SCH (08:17)
[2019-09-26] MEDS ORDERED: ATORVASTATIN 80 MG TABLET PO SCH (09:00)
[2019-09-26] MEDS ORDERED: FUROSEMIDE 40 MG/4 ML VIAL IV SCH (09:00)
[2019-09-26] MEDS: FLUTICASONE 50 MCG NASAL SPRAY 16 GM BOTTLE BOTH NARES SCH (09:02)
[2019-09-26] MEDS: TIMOLOL 0.5% OPH SOLN 5 ML BOTTLE BOTH EYES SCH (09:03)
== END 2019-09-26 12:18 | disposition home health service (06) | DRG 293 ==
LOC: N.ED 08:32 → N.EDINP 08:32 → N.TELEN 11:54
PROVIDERS: ADMIT Internal Medicine; ATTEND Internal Medicine

== ENCOUNTER 2019-11-18 18:07 | Inpatient (IN) ==
[2019-11-18] MEDS ORDERED: DICYCLOMINE 20 MG/2 ML AMP IM ONE (18:26)
[2019-11-18] MEDS ORDERED: METOCLOPRAMIDE 10 MG/2 ML VIAL IV STA (18:26)
[2019-11-18] MEDS ORDERED: PANTOPRAZOLE 40 MG VIAL IV STA (18:26)
[2019-11-18] MEDS ORDERED: ONDANSETRON 4 MG/2 ML VIAL IV STA (18:26)
[2019-11-18 18:49] LABS: Basophils % 0.7 % (0.0-0.8); Eosinophils # 0.1 10*3/uL (0.0-0.87); Eosinophils % 1.7 % (0.00-10.9); Hematocrit 34.3 VOL% (35.7-47.0); Hemoglobin 11.1 GM/DL (12.0-16.0); Immature Granulocytes % 0.2 %; Immature Granulocytes Absolute 0.01 #; Lymphocytes % 23.8 % (21.3-54.2); Mean Corpuscular HGB Conc 32.4 GM/DL (32-36); Mean Corpuscular Volume 92.2 FL (87-102); Monocytes % 13.6 % (1.7-12.7); Red Blood Count 3.72 MC/CUMM (3.8-5.5)
[2019-11-18 18:51] LABS: Platelet Count 13 T/CUMM (130-400)
[2019-11-18 18:58] LABS: INR 1.4; Partial Thromboplastin Time 29.8 SECS (23.9-33.8)
[2019-11-18 19:07] LABS: Anisocytosis 1+; Burr Cells Few; Elliptocytes Few; Platelet Estimate Decreased; Poikilocytosis 1+; Schistocytes 1+
[2019-11-18 19:08] LABS: Polychromasia Slight
[2019-11-18 19:21] LABS: Alanine Aminotransferase 92 U/L (13-56); Albumin 3.4 G/DL (3.4-5.0); Alkaline Phosphatase 168 U/L (45-117); Amylase 62 U/L (25-115); Aspartate Amino Transferase 65 U/L (0-37); Blood Urea Nitrogen 111 MG/DL (7-18); Calcium 9.3 MG/DL (8.5-10.1); Estimated Glom Filtration Rate 10 ML/MIN; Ferritin 1530.5 ng/ml (8-252); Glucose 121 MG/DL (74-106); Osmolality,Calculated 305.1 MOS/KG (273-304); Total Protein 7.8 G/DL (6.4-8.3); Troponin I 0.045 NG/ML (0.00-0.045)
[2019-11-18 19:29] LABS: Amorphous Crystals,Urine Few /HPF (Few); Apearance,Urine Slightly Hazy (Clear); Bacteria,Urine Few /HPF (Few); Bilirubin,Urine Negative (Negative); Blood, Urine Negative (Negative); Glucose,Urine (UA) Negative (Negative); Hyaline Casts,Urine 3 /LPF (0-3); Ketones,Urine Negative (Negative); Mucus,Urine Occasional /LPF (Occasional); Nitrite,Urine Negative (Negative); Protein,Urine 100 MG/DL; RBC,Urine 3 /HPF (0-4); Squamous Epithelial Cell,Urine Occasional /HPF (0-10); Urine Color Yellow (Yellow); Urine Specific Gravity 1.012 (1.001-1.035); Urine Urobilinogen < 2.0 EU/DL (0.2-1.0); WBC,Urine 1 /HPF (0-6)
[2019-11-18] MEDS ORDERED: metroNIDAZOLE INJ 500 MG in PREMIX 1 EACH IV STA (19:50)
[2019-11-18] MEDS ORDERED: GLUCAGON 1 MG VIAL IM PRN (19:57)
[2019-11-18] MEDS ORDERED: MORPHINE 4 MG/1 ML VIAL IV PRN (19:57)
[2019-11-18] MEDS ORDERED: NICOTINE 21 MG/24 HR PATCH TRANSDERM PRN (19:57)
[2019-11-18] MEDS ORDERED: diphenhydrAMINE CAP 25 MG CAPSULE PO PRN (19:57)
[2019-11-18] MEDS ORDERED: DOCUSATE SODIUM 100 MG CAPSULE PO PRN (19:57)
[2019-11-18] MEDS ORDERED: ACETAMINOPHEN 325 MG TABLET PO PRN (19:57)
[2019-11-18] MEDS ORDERED: ZALEPLON 5 MG CAPSULE PO PRN (19:57)
[2019-11-18] MEDS ORDERED: ALBUTEROL 2.5 MG/3 ML NEB RESP TX PRN (19:57)
[2019-11-18] MEDS ORDERED: PROMETHAZINE 25 MG/1 ML VIAL IM PRN (19:57)
[2019-11-18] MEDS ORDERED: guaiFENesin/DM ER 600-30 MG TABLET PO PRN (19:57)
[2019-11-18] MEDS ORDERED: hydrALAZINE 20 MG/1 ML VIAL IV PRN (19:57)
[2019-11-18] MEDS ORDERED: SODIUM CHLORIDE 0.9% 1,000 ML IV SCH (20:00)
[2019-11-18] MEDS ORDERED: SODIUM CHLORIDE 0.9% 1,000 ML IV PRN (20:09)
[2019-11-18] MEDS ORDERED: CALCIUM CARBONATE CHEW 500 MG TABLET PO PRN (20:36)
[2019-11-18] MEDS ORDERED: NITROGLYCERIN SL 0.4 MG TABLET SL PRN (20:36)
[2019-11-18] MEDS ORDERED: hydrALAZINE 25 MG TABLET PO SCH (21:00)
[2019-11-18] MEDS: INSULIN LISPRO 100 UNIT/ML SUBCUT SCH (22:00)
[2019-11-18] MEDS: cefTRIAXone 1,000 MG in SYRINGE 1 EACH IV SCH (22:03)
[2019-11-18] MEDS: METOPROLOL SUCCINATE XL 25 MG TABLET PO SCH (22:04)
[2019-11-19] MEDS ORDERED: SODIUM CHLORIDE 0.9% 1,000 ML IV PRN ×2 (03:13→03:16)
[2019-11-19] MEDS: metroNIDAZOLE INJ 500 MG in PREMIX 1 EACH IV SCH ×3 (03:54→22:12)
[2019-11-19 05:12] LABS: Basophils % 0.4 % (0.0-0.8); Eosinophils # 0.1 10*3/uL (0.0-0.87); Eosinophils % 1.3 % (0.00-10.9); Hematocrit 33.4 VOL% (35.7-47.0); Hemoglobin 10.6 GM/DL (12.0-16.0); Immature Granulocytes % 0.4 %; Immature Granulocytes Absolute 0.02 #; Lymphocytes # 0.4 10*3/uL (1.4-4.0); Lymphocytes % 9.8 % (21.3-54.2); Mean Corpuscular HGB Conc 31.7 GM/DL (32-36); Mean Corpuscular Volume 93.8 FL (87-102); Monocytes % 3.8 % (1.7-12.7); NRBC # 0.03 10*3/uL; Neutrophils % 84.3 % (38.7-73.9); Red Blood Count 3.56 MC/CUMM (3.8-5.5); Red Cell Distribution Width 16.2 % (9.3-17.3); White Blood Count 4.5 T/CUMM (4-12)
[2019-11-19 05:13] LABS: Platelet Count 13 T/CUMM (130-400)
[2019-11-19 05:32] LABS: Albumin 3.4 G/DL (3.4-5.0); Bilirubin,Total 1.1 MG/DL (0.2-1.0); Calcium 9.5 MG/DL (8.5-10.1); Osmolality,Calculated 302.2 MOS/KG (273-304); Total Protein 7.5 G/DL (6.4-8.3)
[2019-11-19] MEDS: LEVOTHYROXINE 88 MCG TABLET PO SCH (05:46)
[2019-11-19 05:54] LABS: Burr Cells Slight; Hypochromasia 1+; Ovalocytes Slight; Platelet Estimate Decreased
[2019-11-19 05:55] LABS: Acanthocytes Few
[2019-11-19] MEDS: PANTOPRAZOLE 40 MG TABLET PO SCH (08:47)
[2019-11-19] MEDS: METOPROLOL SUCCINATE XL 25 MG TABLET PO SCH ×2 (08:47→22:12)
[2019-11-19] MEDS: TIMOLOL 0.5% OPH SOLN 5 ML BOTTLE BOTH EYES SCH (08:47)
[2019-11-19] MEDS: FLUTICASONE 50 MCG NASAL SPRAY 16 GM BOTTLE BOTH NARES SCH (08:47)
[2019-11-19] MEDS: POTASSIUM CHLORIDE 10 MEQ TABLET PO SCH (08:47)
[2019-11-19] MEDS ORDERED: ATORVASTATIN 40 MG TABLET PO SCH (09:00)
[2019-11-19] MEDS ORDERED: TORSEMIDE 20 MG TABLET PO SCH (10:00)
[2019-11-19] MEDS: INSULIN LISPRO 100 UNIT/ML SUBCUT SCH ×4 (10:55→22:16)
[2019-11-19] MEDS: cefTRIAXone 1,000 MG in SYRINGE 1 EACH IV SCH (21:48)
[2019-11-20] MEDS: metroNIDAZOLE INJ 500 MG in PREMIX 1 EACH IV SCH ×3 (04:29→20:35)
[2019-11-20 05:27] LABS: Basophils % 0.4 % (0.0-0.8); Eosinophils # 0.1 10*3/uL (0.0-0.87); Eosinophils % 1.5 % (0.00-10.9); Hematocrit 32.5 VOL% (35.7-47.0); Hemoglobin 10.5 GM/DL (12.0-16.0); Immature Granulocytes % 0.6 %; Immature Granulocytes Absolute 0.03 #; Lymphocytes % 21.7 % (21.3-54.2); Mean Corpuscular HGB Conc 32.3 GM/DL (32-36); Mean Corpuscular Volume 92.3 FL (87-102); Monocytes % 15.1 % (1.7-12.7); NRBC # 0.02 10*3/uL; Neutrophils % 60.7 % (38.7-73.9); Red Blood Count 3.52 MC/CUMM (3.8-5.5); Red Cell Distribution Width 16.5 % (9.3-17.3); White Blood Count 4.7 T/CUMM (4-12)
[2019-11-20 05:31] LABS: Platelet Count 15 T/CUMM (130-400)
[2019-11-20 05:42] LABS: Calcium 9.4 MG/DL (8.5-10.1); Osmolality,Calculated 311.7 MOS/KG (273-304)
[2019-11-20] MEDS: LEVOTHYROXINE 88 MCG TABLET PO SCH (06:10)
[2019-11-20 06:15] LABS: Acanthocytes Few; Burr Cells Slight; Eosinophils 2 % (0-10); Hypochromasia 1+; Lymphocytes 17 % (20-55); Ovalocytes Slight; Platelet Estimate Decreased; Segmented Neutrophils 74 % (50-85); Total Cells Counted 100
[2019-11-20] MEDS: POTASSIUM CHLORIDE 10 MEQ TABLET PO SCH (08:46)
[2019-11-20] MEDS: PANTOPRAZOLE 40 MG TABLET PO SCH (08:46)
[2019-11-20] MEDS: FLUTICASONE 50 MCG NASAL SPRAY 16 GM BOTTLE BOTH NARES SCH (08:46)
[2019-11-20] MEDS: TIMOLOL 0.5% OPH SOLN 5 ML BOTTLE BOTH EYES SCH (08:47)
[2019-11-20] MEDS: METOPROLOL SUCCINATE XL 25 MG TABLET PO SCH ×2 (09:12→20:35)
[2019-11-20] MEDS: INSULIN LISPRO 100 UNIT/ML SUBCUT SCH ×4 (09:12→20:35)
[2019-11-20] MEDS: ONDANSETRON 4 MG/2 ML VIAL IV PRN (13:09)
[2019-11-20] MEDS: cefTRIAXone 1,000 MG in SYRINGE 1 EACH IV SCH (20:35)
[2019-11-21] MEDS: metroNIDAZOLE INJ 500 MG in PREMIX 1 EACH IV SCH ×3 (04:30→21:48)
[2019-11-21] MEDS: LEVOTHYROXINE 88 MCG TABLET PO SCH (05:55)
[2019-11-21 07:47] LABS: Basophils % 0.6 % (0.0-0.8); Eosinophils # 0.1 10*3/uL (0.0-0.87); Eosinophils % 1.2 % (0.00-10.9); Hemoglobin 10.9 GM/DL (12.0-16.0); Immature Granulocytes % 0.6 %; Immature Granulocytes Absolute 0.03 #; Lymphocytes # 0.9 10*3/uL (1.4-4.0); Lymphocytes % 18.4 % (21.3-54.2); Mean Corpuscular HGB Conc 32.1 GM/DL (32-36); Mean Corpuscular Volume 91.9 FL (87-102); Monocytes % 12.7 % (1.7-12.7); NRBC # 0.03 10*3/uL; Neutrophils % 66.5 % (38.7-73.9); Red Cell Distribution Width 16.7 % (9.3-17.3); White Blood Count 4.9 T/CUMM (4-12)
[2019-11-21 07:53] LABS: Calcium 9.7 MG/DL (8.5-10.1)
[2019-11-21 07:57] LABS: Platelet Count 12 T/CUMM (130-400)
[2019-11-21] MEDS: INSULIN LISPRO 100 UNIT/ML SUBCUT SCH ×4 (07:58→22:11)
[2019-11-21] MEDS: POTASSIUM CHLORIDE 10 MEQ TABLET PO SCH (08:51)
[2019-11-21] MEDS: TIMOLOL 0.5% OPH SOLN 5 ML BOTTLE BOTH EYES SCH (08:51)
[2019-11-21] MEDS: FLUTICASONE 50 MCG NASAL SPRAY 16 GM BOTTLE BOTH NARES SCH (08:51)
[2019-11-21] MEDS: METOPROLOL SUCCINATE XL 25 MG TABLET PO SCH ×2 (08:51→22:11)
[2019-11-21] MEDS: PANTOPRAZOLE 40 MG TABLET PO SCH (08:51)
[2019-11-21] MEDS ORDERED: SODIUM CHLORIDE 0.9% 1,000 ML IV PRN (09:50)
[2019-11-21 10:39] LABS: Burr Cells Few; Schistocytes Few
[2019-11-21 10:40] LABS: Hypochromasia Slight; Ovalocytes Few; Platelet Estimate Decreased
[2019-11-21] MEDS: ONDANSETRON 4 MG/2 ML VIAL IV PRN (17:01)
[2019-11-21] MEDS: SODIUM CHLORIDE 0.9% 250 ML IV SCH ×4 (19:30→22:24)
[2019-11-21 19:59] LABS: Basophils % 0.5 % (0.0-0.8); Eosinophils # 0.1 10*3/uL (0.0-0.87); Hematocrit 35.4 VOL% (35.7-47.0); Hemoglobin 11.5 GM/DL (12.0-16.0); Immature Granulocytes % 0.7 %; Immature Granulocytes Absolute 0.04 #; Lymphocytes # 1.2 10*3/uL (1.4-4.0); Lymphocytes % 20.3 % (21.3-54.2); Mean Corpuscular HGB Conc 32.5 GM/DL (32-36); Mean Corpuscular Volume 93.2 FL (87-102); Monocytes % 13.2 % (1.7-12.7); NRBC # 0.11 10*3/uL; Neutrophils % 64.3 % (38.7-73.9); Red Cell Distribution Width 17.1 % (9.3-17.3); White Blood Count 5.8 T/CUMM (4-12)
[2019-11-21 20:07] LABS: Platelet Count 29 T/CUMM (130-400)
[2019-11-21] MEDS ORDERED: METOPROLOL TARTRATE 5 MG/5 ML VIAL IV STA (20:19)
[2019-11-21 20:23] LABS: Calcium 9.7 MG/DL (8.5-10.1)
[2019-11-21 20:26] LABS: Anisocytosis 1+; Burr Cells Few; Hypochromasia 1+; Ovalocytes Few
[2019-11-21 20:27] LABS: Platelet Estimate Decreased; Polychromasia Few; Schistocytes Few
[2019-11-21] MEDS ORDERED: AMIODARONE INJ 450 MG in DEXTROSE 5% 241 ML IV SCH (21:00)
[2019-11-21] MEDS: cefTRIAXone 1,000 MG in SYRINGE 1 EACH IV SCH (21:45)
[2019-11-21] MEDS ORDERED: METOPROLOL TARTRATE 5 MG/5 ML VIAL IV ONE (22:53)
[2019-11-21 23:17] LABS: Basophils % 0.3 % (0.0-0.8); Eosinophils % 0.6 % (0.00-10.9); Hematocrit 37.4 VOL% (35.7-47.0); Immature Granulocytes % 0.7 %; Immature Granulocytes Absolute 0.05 #; Lymphocytes % 14.9 % (21.3-54.2); Mean Corpuscular HGB Conc 32.1 GM/DL (32-36); Mean Corpuscular Volume 94.4 FL (87-102); Monocytes % 14.6 % (1.7-12.7); Neutrophils % 68.9 % (38.7-73.9); Red Blood Count 3.96 MC/CUMM (3.8-5.5); Red Cell Distribution Width 17.4 % (9.3-17.3); White Blood Count 6.7 T/CUMM (4-12)
[2019-11-21 23:32] LABS: Platelet Count 27 T/CUMM (130-400)
[2019-11-22 00:05] LABS: Blood Urea Nitrogen 117 MG/DL (7-18); Calcium 9.7 MG/DL (8.5-10.1); Estimated Glom Filtration Rate 9 ML/MIN; Glucose 121 MG/DL (74-106); Osmolality,Calculated 307.1 MOS/KG (273-304)
[2019-11-22 01:06] LABS: Eosinophils 2 % (0-10); Lymphocytes 21 % (20-55); Nucleated Red Blood Cells 1 (0-5); Segmented Neutrophils 62 % (50-85); Total Cells Counted 100
[2019-11-22 01:07] LABS: Acanthocytes 1+; Anisocytosis 1+; Ovalocytes 1+; Platelet Estimate Decreased
[2019-11-22] MEDS ORDERED: AMIODARONE INJ 450 MG in DEXTROSE 5% 241 ML IV SCH (03:00)
[2019-11-22] MEDS: metroNIDAZOLE INJ 500 MG in PREMIX 1 EACH IV SCH ×3 (05:15→20:50)
[2019-11-22] MEDS: METOPROLOL TARTRATE 5 MG/5 ML VIAL IV SCH ×4 (05:33→22:37)
[2019-11-22] MEDS: LEVOTHYROXINE 88 MCG TABLET PO SCH (06:08)
[2019-11-22 06:45] LABS: Basophils % 0.2 % (0.0-0.8); Hematocrit 38.4 VOL% (35.7-47.0); Hemoglobin 11.8 GM/DL (12.0-16.0); Immature Granulocytes % 1.1 %; Lymphocytes # 0.3 10*3/uL (1.4-4.0); Lymphocytes % 3.5 % (21.3-54.2); Mean Corpuscular HGB Conc 30.7 GM/DL (32-36); Mean Corpuscular Volume 96.5 FL (87-102); Monocytes % 11.4 % (1.7-12.7); NRBC # 0.09 10*3/uL; Neutrophils % 83.8 % (38.7-73.9); Red Blood Count 3.98 MC/CUMM (3.8-5.5); Red Cell Distribution Width 17.7 % (9.3-17.3); White Blood Count 8.9 T/CUMM (4-12)
[2019-11-22 06:49] LABS: Platelet Count 15 T/CUMM (130-400)
[2019-11-22 07:01] LABS: Calcium 9.7 MG/DL (8.5-10.1); Osmolality,Calculated 300.4 MOS/KG (273-304)
[2019-11-22 07:20] LABS: Troponin I 0.535 NG/ML (0.00-0.045)
[2019-11-22] MEDS: INSULIN LISPRO 100 UNIT/ML SUBCUT SCH ×4 (08:10→20:50)
[2019-11-22] MEDS: POTASSIUM CHLORIDE 10 MEQ TABLET PO SCH (08:17)
[2019-11-22] MEDS: METOPROLOL SUCCINATE XL 25 MG TABLET PO SCH ×3 (08:30→20:40)
[2019-11-22] MEDS: PANTOPRAZOLE 40 MG TABLET PO SCH (08:32)
[2019-11-22] MEDS: FLUTICASONE 50 MCG NASAL SPRAY 16 GM BOTTLE BOTH NARES SCH (08:39)
[2019-11-22] MEDS: DEXTROSE 5% NACL 0.9% 1,000 ML IV SCH (10:25)
[2019-11-22] MEDS: DEXTROSE 10% 250 ML BAG IV PRN (10:36)
[2019-11-22 10:40] LABS: Acanthocytes Few; Burr Cells Few; Lymphocytes 1 % (20-55); Metamyelocytes 1 %; Platelet Estimate Decreased; Polychromasia Slight; Schistocytes Few; Segmented Neutrophils 95 % (50-85); Total Cells Counted 100
[2019-11-22 10:41] LABS: Poikilocytosis 3+
[2019-11-22] MEDS ORDERED: SODIUM POLYSTYRENE SULFATE 15 GM/60 ML BOTTLE PO STA (11:21)
[2019-11-22] MEDS: ONDANSETRON 4 MG/2 ML VIAL IV PRN ×2 (13:01→20:45)
[2019-11-22] MEDS: TIMOLOL 0.5% OPH SOLN 5 ML BOTTLE BOTH EYES SCH (14:18)
[2019-11-22] MEDS: FUROSEMIDE 40 MG/4 ML VIAL IV SCH (16:30)
[2019-11-22] MEDS: cefTRIAXone 1,000 MG in SYRINGE 1 EACH IV SCH (20:43)
[2019-11-23] MEDS: metroNIDAZOLE INJ 500 MG in PREMIX 1 EACH IV SCH ×2 (04:43→12:35)
[2019-11-23] MEDS: METOPROLOL TARTRATE 5 MG/5 ML VIAL IV SCH (05:33)
[2019-11-23] MEDS: LEVOTHYROXINE 88 MCG TABLET PO SCH (05:48)
[2019-11-23 06:31] LABS: Basophils % 0.1 % (0.0-0.8); Hematocrit 35.8 VOL% (35.7-47.0); Hemoglobin 11.5 GM/DL (12.0-16.0); Immature Granulocytes % 0.9 %; Lymphocytes # 0.6 10*3/uL (1.4-4.0); Lymphocytes % 5.1 % (21.3-54.2); Mean Corpuscular HGB Conc 32.1 GM/DL (32-36); Mean Corpuscular Volume 94.7 FL (87-102); Monocytes % 10.5 % (1.7-12.7); NRBC # 0.17 10*3/uL; Neutrophils % 83.4 % (38.7-73.9); Red Blood Count 3.78 MC/CUMM (3.8-5.5); White Blood Count 11.7 T/CUMM (4-12)
[2019-11-23 06:32] LABS: Platelet Count 15 T/CUMM (130-400)
[2019-11-23 06:42] LABS: Calcium 9.6 MG/DL (8.5-10.1); Osmolality,Calculated 306.1 MOS/KG (273-304)
[2019-11-23 06:52] LABS: Acanthocytes 1+
[2019-11-23 06:53] LABS: Anisocytosis 1+; Burr Cells Few
[2019-11-23 06:54] LABS: Ovalocytes Few; Platelet Estimate Decreased; Polychromasia Slight
[2019-11-23] MEDS: INSULIN LISPRO 100 UNIT/ML SUBCUT SCH ×4 (08:35→21:33)
[2019-11-23] MEDS: PANTOPRAZOLE 40 MG TABLET PO SCH (09:29)
[2019-11-23] MEDS: FUROSEMIDE 40 MG/4 ML VIAL IV SCH ×2 (09:29→16:16)
[2019-11-23] MEDS: POTASSIUM CHLORIDE 10 MEQ TABLET PO SCH (09:29)
[2019-11-23] MEDS: METOPROLOL SUCCINATE XL 25 MG TABLET PO SCH ×2 (09:29→21:12)
[2019-11-23] MEDS: TIMOLOL 0.5% OPH SOLN 5 ML BOTTLE BOTH EYES SCH (09:30)
[2019-11-23] MEDS: FLUTICASONE 50 MCG NASAL SPRAY 16 GM BOTTLE BOTH NARES SCH (09:30)
[2019-11-23] MEDS ORDERED: METOPROLOL TARTRATE 5 MG/5 ML VIAL IV PRN (09:58)
[2019-11-23] MEDS: DEXTROSE 5% NACL 0.9% 1,000 ML IV SCH (10:10)
[2019-11-23] MEDS ORDERED: IMMUNE GLOBULIN 10% 20 GM in PREMIX 1 EACH IV ONE (20:00)
[2019-11-23] MEDS: cefTRIAXone 1,000 MG in SYRINGE 1 EACH IV SCH (21:08)
[2019-11-24] MEDS: DEXTROSE 5% NACL 0.9% 1,000 ML IV SCH ×2 (06:14→16:07)
[2019-11-24] MEDS: LEVOTHYROXINE 88 MCG TABLET PO SCH (06:15)
[2019-11-24 06:20] LABS: Basophils % 0.4 % (0.0-0.8); Eosinophils % 0.4 % (0.00-10.9); Hematocrit 32.3 VOL% (35.7-47.0); Hemoglobin 10.8 GM/DL (12.0-16.0); Immature Granulocytes % 1.6 %; Immature Granulocytes Absolute 0.13 #; Lymphocytes # 0.7 10*3/uL (1.4-4.0); Lymphocytes % 9.2 % (21.3-54.2); Mean Corpuscular HGB Conc 33.4 GM/DL (32-36); Mean Corpuscular Volume 89.7 FL (87-102); Monocytes % 9.3 % (1.7-12.7); NRBC # 0.33 10*3/uL; Neutrophils % 79.1 % (38.7-73.9); Red Cell Distribution Width 18.1 % (9.3-17.3)
[2019-11-24 06:29] LABS: Calcium 9.3 MG/DL (8.5-10.1); Osmolality,Calculated 311.8 MOS/KG (273-304); Platelet Count 7 T/CUMM (130-400)
[2019-11-24] MEDS ORDERED: SODIUM CHLORIDE 0.9% 1,000 ML IV PRN ×2 (06:41→07:12)
[2019-11-24 06:51] LABS: Lymphocytes 8 % (20-55); Nucleated Red Blood Cells 4 (0-5); Segmented Neutrophils 85 % (50-85); Total Cells Counted 100
[2019-11-24 06:52] LABS: Acanthocytes 1+; Anisocytosis 1+; Ovalocytes 1+; Platelet Estimate Decreased
[2019-11-24] MEDS: METOPROLOL SUCCINATE XL 25 MG TABLET PO SCH ×2 (08:51→21:32)
[2019-11-24] MEDS: FUROSEMIDE 40 MG/4 ML VIAL IV SCH ×2 (08:52→16:06)
[2019-11-24] MEDS: POTASSIUM CHLORIDE 10 MEQ TABLET PO SCH (08:52)
[2019-11-24] MEDS: PANTOPRAZOLE 40 MG TABLET PO SCH (08:52)
[2019-11-24] MEDS: TIMOLOL 0.5% OPH SOLN 5 ML BOTTLE BOTH EYES SCH (08:56)
[2019-11-24] MEDS: FLUTICASONE 50 MCG NASAL SPRAY 16 GM BOTTLE BOTH NARES SCH (08:56)
[2019-11-24] MEDS: INSULIN LISPRO 100 UNIT/ML SUBCUT SCH ×4 (08:59→21:39)
[2019-11-24] MEDS ORDERED: IMMUNE GLOBULIN 10% 20 GM in PREMIX 1 EACH IV ONE (14:00)
[2019-11-24] MEDS ORDERED: LOPERAMIDE 2 MG CAPSULE PO PRN (15:38)
[2019-11-24] MEDS: DEXTROSE 10% 250 ML BAG IV PRN (20:12)
[2019-11-24] MEDS: cefTRIAXone 1,000 MG in SYRINGE 1 EACH IV SCH (21:32)
[2019-11-24] MEDS: hydrALAZINE 10 MG TABLET PO SCH (21:32)
[2019-11-24] MEDS: ISOSORBIDE DINITRATE 10 MG TABLET PO SCH (22:11)
[2019-11-25 05:40] LABS: Basophils % 0.3 % (0.0-0.8); Eosinophils % 0.1 % (0.00-10.9); Hematocrit 36.1 VOL% (35.7-47.0); Immature Granulocytes % 2.8 %; Immature Granulocytes Absolute 0.25 #; Lymphocytes # 0.8 10*3/uL (1.4-4.0); Lymphocytes % 8.6 % (21.3-54.2); Mean Corpuscular HGB Conc 33.2 GM/DL (32-36); Mean Corpuscular Volume 90.7 FL (87-102); Monocytes % 13.1 % (1.7-12.7); NRBC # 0.45 10*3/uL; Neutrophils % 75.1 % (38.7-73.9); Red Blood Count 3.98 MC/CUMM (3.8-5.5)
[2019-11-25 05:42] LABS: Platelet Count 22 T/CUMM (130-400)
[2019-11-25 05:54] LABS: Calcium 10.1 MG/DL (8.5-10.1); Osmolality,Calculated 314.8 MOS/KG (273-304)
[2019-11-25] MEDS: LEVOTHYROXINE 88 MCG TABLET PO SCH (06:02)
[2019-11-25 06:16] LABS: Acanthocytes Few; Ovalocytes Slight; Platelet Estimate Decreased
[2019-11-25] MEDS ORDERED: SODIUM CHLORIDE 0.9% 1,000 ML IV PRN (06:30)
[2019-11-25] MEDS: INSULIN LISPRO 100 UNIT/ML SUBCUT SCH ×4 (08:44→21:26)
[2019-11-25] MEDS: PANTOPRAZOLE 40 MG TABLET PO SCH (09:40)
[2019-11-25] MEDS: METOPROLOL SUCCINATE XL 25 MG TABLET PO SCH ×2 (09:40→21:28)
[2019-11-25] MEDS: POTASSIUM CHLORIDE 10 MEQ TABLET PO SCH (09:41)
[2019-11-25] MEDS: ISOSORBIDE DINITRATE 10 MG TABLET PO SCH (09:43)
[2019-11-25] MEDS: FLUTICASONE 50 MCG NASAL SPRAY 16 GM BOTTLE BOTH NARES SCH (09:49)
[2019-11-25] MEDS: FUROSEMIDE 40 MG/4 ML VIAL IV SCH ×2 (09:50→16:55)
[2019-11-25] MEDS: hydrALAZINE 10 MG TABLET PO SCH (09:50)
[2019-11-25] MEDS: DEXTROSE 5% NACL 0.9% 1,000 ML IV SCH ×2 (13:14→19:03)
[2019-11-25] MEDS: TIMOLOL 0.5% OPH SOLN 5 ML BOTTLE BOTH EYES SCH (15:49)
[2019-11-25] MEDS: ISOSORBIDE DINITRATE 20 MG TABLET PO SCH ×2 (16:55→21:28)
[2019-11-25] MEDS: DEXTROSE 10% 250 ML BAG IV PRN (19:04)
[2019-11-25] MEDS: cefTRIAXone 1,000 MG in SYRINGE 1 EACH IV SCH (21:30)
[2019-11-26 05:33] LABS: Basophils % 0.3 % (0.0-0.8); Eosinophils # 0.1 10*3/uL (0.0-0.87); Eosinophils % 0.9 % (0.00-10.9); Hematocrit 36.2 VOL% (35.7-47.0); Hemoglobin 11.9 GM/DL (12.0-16.0); Immature Granulocytes Absolute 0.14 #; Lymphocytes # 0.5 10*3/uL (1.4-4.0); Lymphocytes % 7.4 % (21.3-54.2); Mean Corpuscular HGB Conc 32.9 GM/DL (32-36); Mean Corpuscular Volume 92.1 FL (87-102); Monocytes % 12.2 % (1.7-12.7); NRBC # 0.22 10*3/uL; Neutrophils % 77.2 % (38.7-73.9); Red Blood Count 3.93 MC/CUMM (3.8-5.5); Red Cell Distribution Width 19.7 % (9.3-17.3)
[2019-11-26 05:39] LABS: Platelet Count 13 T/CUMM (130-400)
[2019-11-26 05:52] LABS: Calcium 9.5 MG/DL (8.5-10.1); Osmolality,Calculated 313.1 MOS/KG (273-304)
[2019-11-26 06:09] LABS: Acanthocytes Few; Eosinophils 1 % (0-10); Hypochromasia 1+; Lymphocytes 9 % (20-55); Nucleated Red Blood Cells 3 (0-5); Ovalocytes Slight; Platelet Estimate Decreased; Segmented Neutrophils 79 % (50-85); Total Cells Counted 100
[2019-11-26] MEDS: LEVOTHYROXINE 88 MCG TABLET PO SCH (06:28)
[2019-11-26] MEDS: INSULIN LISPRO 100 UNIT/ML SUBCUT SCH ×4 (08:22→21:04)
[2019-11-26] MEDS: DEXTROSE 5% NACL 0.9% 1,000 ML IV SCH (08:23)
[2019-11-26] MEDS: ISOSORBIDE DINITRATE 20 MG TABLET PO SCH ×3 (08:24→21:14)
[2019-11-26] MEDS: FUROSEMIDE 40 MG/4 ML VIAL IV SCH ×2 (08:24→16:06)
[2019-11-26] MEDS: METOPROLOL SUCCINATE XL 25 MG TABLET PO SCH ×2 (08:24→21:14)
[2019-11-26] MEDS: POTASSIUM CHLORIDE 10 MEQ TABLET PO SCH (08:24)
[2019-11-26] MEDS: PANTOPRAZOLE 40 MG TABLET PO SCH (08:24)
[2019-11-26] MEDS: TIMOLOL 0.5% OPH SOLN 5 ML BOTTLE BOTH EYES SCH (08:25)
[2019-11-26] MEDS: FLUTICASONE 50 MCG NASAL SPRAY 16 GM BOTTLE BOTH NARES SCH (08:25)
[2019-11-26] MEDS ORDERED: SODIUM CHLORIDE 0.9% 1,000 ML IV PRN (08:34)
[2019-11-27] MEDS: DEXTROSE 5% NACL 0.9% 1,000 ML IV SCH (05:32)
[2019-11-27 06:08] LABS: Basophils % 0.2 % (0.0-0.8); Eosinophils # 0.1 10*3/uL (0.0-0.87); Eosinophils % 2.4 % (0.00-10.9); Hematocrit 32.6 VOL% (35.7-47.0); Hemoglobin 10.8 GM/DL (12.0-16.0); Immature Granulocytes % 2.6 %; Immature Granulocytes Absolute 0.13 #; Lymphocytes # 0.4 10*3/uL (1.4-4.0); Lymphocytes % 7.3 % (21.3-54.2); Mean Corpuscular HGB Conc 33.1 GM/DL (32-36); Mean Corpuscular Volume 91.8 FL (87-102); Monocytes % 10.6 % (1.7-12.7); NRBC # 0.26 10*3/uL; Neutrophils % 76.9 % (38.7-73.9); Red Blood Count 3.55 MC/CUMM (3.8-5.5); White Blood Count 5.1 T/CUMM (4-12)
[2019-11-27 06:11] LABS: Platelet Count 15 T/CUMM (130-400)
[2019-11-27] MEDS: LEVOTHYROXINE 88 MCG TABLET PO SCH (06:12)
[2019-11-27 06:24] LABS: Hypochromasia Slight
[2019-11-27 06:25] LABS: Acanthocytes Few; Burr Cells Slight; Calcium 10.2 MG/DL (8.5-10.1); Osmolality,Calculated 318.5 MOS/KG (273-304); Ovalocytes Slight; Platelet Estimate Decreased
[2019-11-27] MEDS: INSULIN LISPRO 100 UNIT/ML SUBCUT SCH (07:57)
[2019-11-27] MEDS: FUROSEMIDE 40 MG/4 ML VIAL IV SCH (08:50)
[2019-11-27] MEDS: TIMOLOL 0.5% OPH SOLN 5 ML BOTTLE BOTH EYES SCH (08:53)
[2019-11-27] MEDS: POTASSIUM CHLORIDE 10 MEQ TABLET PO SCH (08:53)
[2019-11-27] MEDS: METOPROLOL SUCCINATE XL 25 MG TABLET PO SCH (08:53)
[2019-11-27] MEDS: FLUTICASONE 50 MCG NASAL SPRAY 16 GM BOTTLE BOTH NARES SCH (08:53)
[2019-11-27] MEDS: PANTOPRAZOLE 40 MG TABLET PO SCH (08:53)
[2019-11-27] MEDS: ISOSORBIDE DINITRATE 20 MG TABLET PO SCH (08:53)
[2019-11-27 12:13] VITALS: BP 122/69
[2019-11-27] MEDS ORDERED: hydrALAZINE 10 MG TABLET PO SCH (15:00)
== END 2019-11-27 13:46 | disposition home health service (06) | DRG 391 ==
LOC: N.ED 18:07 → SUATTDRO 19:57 → N.EDINP 19:57 → N.TELES 20:35 → N.ICU 11-21 21:24 → N.TELEN 11-22 14:43
PROVIDERS: ADMIT Internal Medicine; ATTEND Internal Medicine Geriatric Medicine